=== PATIENT | female | born 1945 | race Caucasian/White ===

== ENCOUNTER 2016-10-10 15:49 | Inpatient (IN) | payer MEDICARE, OTHER ==
[2016-10-10] MEDS ORDERED: Sodium Chloride 0.9% 10 ML Syringe FLUSH PRN ×2 (16:39→19:31)
[2016-10-10] MEDS ORDERED: HYDROmorphone 0.5 MG/0.5 ML Syringe IVPUSH ONE (16:39)
--- NOTE | 2016-10-10 17:11 | EDM.PDOC ---
ED HPI GENERAL MEDICAL PROBLEM - General Chief Complaint: Abdominal Pain Stated Complaint: ABDOMINAL PAIN Time Seen by Provider: 10/10/16 16:26 Source of Information: Reports: Patient History Limitations: Reports: No Limitations - History of Present Illness INITIAL COMMENTS - FREE TEXT/NARRATIVE: Patient is a 71-year-old female who presents to the ED complaining of generalized abdominal pain. States she feels bloated. Onset was two days ago and has progressively worsened. Pain is currently a 10 out of 10 throughout her abdomen increased with palpation. She's mildly nauseated with no vomiting. She has been passing gas. Last bowel movement was this a.m. She has had 4-5 small bowel movements today described as being loose with no blood present. She's had to strain to have BM's. States yesterday stools were quite hard and she is fearful that she may be constipated. She has no pain with urination. States last Tuesday she was seen by Keyona hernandez PA-C at the clinic for not feeling well. Temperature was 100F. CT scan of the abdomen and pelvis was obtained along with some blood work. She has a scheduled appointment with GI specialist this coming Tuesday. She has a history of Crohn's Disease. 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 Abdomen Pain Score (Numeric/FACES): 10 - Related Data Allergies Allergy/AdvReac Type Severity Reaction Status Date / Time Penicillins Allergy Cannot Verified 10/05/16 15:46 Remember pistachio nut Allergy Cannot Verified 10/05/16 15:46 Remember Home Meds: Home Meds Aspirin 81 mg PO BEDTIME 08/15/15 [History] Calcium Carbonate [Calcium] 1,200 mg PO BID 08/15/15 [History] Cetirizine [ZyrTEC] 10 mg PO DAILY 08/15/15 [History] Cyanocobalamin (Vitamin B-12) [B-12] 1,000 mg PO DAILY 08/15/15 [History] Fenofibrate Nanocrystallized [Fenofibrate] 48 mg PO DAILY 08/15/15 [History] Ferrous Sulfate [Iron] 325 mg PO DAILY 08/15/15 [History] Fish Oil/[place]-3 Fatty Acids [Fish Oil 1,000 MG] 1,000 mg PO TID 08/15/15 [ History] Folic Acid 0 mg PO DAILY 08/15/15 [History] Furosemide 20 mg PO BID 08/15/15 [History] Potassium Chloride [Klor-Con 10] 10 meq PO TID 08/15/15 [History] Vedolizumab [Entyvio] 300 mg IV ASDIRECTED 08/15/15 [History] chlordiazePOXIDE [Librium] 5 mg PO TID 08/15/15 [History] cloNIDine [Catapres] 0.1 mg PO BID 08/15/15 [History] metFORMIN HCl [Metformin HCl] 1,000 mg PO QAM 08/15/15 [History] metFORMIN HCl [Metformin HCl] 500 mg PO PCDINNER 08/15/15 [History] Past Medical History HEENT History: Reports: Hard of Hearing Cardiovascular History: Reports: High Cholesterol, Hypertension Respiratory History: Reports: COPD Gastrointestinal History: Reports: Other (See Below) Other Gastrointestinal History: chrohns Genitourinary History: Reports: Other (See Below) 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: Musculoskeletal History: Reports: Osteoarthritis, Osteoporosis Psychiatric History: Reports: Anxiety, Depression Endocrine/Metabolic History: Reports: Diabetes, Type II Hematologic History: Reports: Anemia, B12 Deficiency, Iron Deficiency - Past Surgical History GI Surgical History: Reports: Appendectomy, Cholecystectomy Social & Family History - Family History Family Medical History: Noncontributory - Tobacco Use Smoking Status *Q: Current Every Day Smoker Years of Tobacco use: 50 Packs/Tins Daily: 0.4 - Caffeine Use Caffeine Use: Reports: Coffee, Soda, Tea - Recreational Drug Use Recreational Drug Use: No - Living Situation & Occupation Living situation: Reports: Occupation: Retired ED ROS GENERAL - Review of Systems Review Of Systems: See Below Constitutional: Reports: Decreased Appetite. Denies: Fever, Chills, Malaise Respiratory: Reports: No Symptoms Cardiovascular: Reports: No Symptoms GI/Abdominal: Reports: Abdominal Pain, Constipation, Nausea. Denies: Vomiting : Denies: Dysuria, Flank Pain, Frequency, Urgency Musculoskeletal: Reports: Back Pain ED EXAM, GI/ABD - Physical Exam Exam: See Below Exam Limited By: No Limitations General Appearance: Alert, WD/WN, No Apparent Distress Ears: Hearing Grossly Normal Nose: Normal Inspection Throat/Mouth: Normal Inspection, Normal Oropharynx, Normal Voice, No Airway Compromise Neck: Normal Inspection, Supple Respiratory/Chest: No Respiratory Distress, Lungs Clear, Normal Breath Sounds, No Accessory Muscle Use, Chest Non-Tender Cardiovascular: Normal Peripheral Pulses GI/Abdominal Exam: Soft, Distended, Tender (Generalized), Abnormal Bowel Sounds (Hyperactive) (Female) Exam: Deferred Rectal (Female) Exam: Deferred Back Exam: Normal Inspection Extremities: Normal Inspection, Normal Range of Motion, Non-Tender, No Pedal Edema, Normal Capillary Refill Neurological: Alert, Oriented, CN II-XII Intact, Normal Cognition, No Motor/ Sensory Deficits Psychiatric: Normal Affect, Normal Mood Skin Exam: Warm, Dry, Intact, Normal Color Course - Vital Signs Last Recorded V/S: Last Vital Signs Temp 97.2 F 10/10/16 16:08 Pulse 78 10/10/16 16:08 Resp 20 10/10/16 16:08 BP 139/54 L 10/10/16 16:08 Pulse Ox 97 10/10/16 16:08 - Orders/Labs/Meds Orders: Active Orders 24 hr Category Date Time Status Peripheral IV Care [RC] . DIRECTED Care 10/10/16 16:39 Active NPO Now [Nothing per Oral Now Diet] [DIET] Diet 10/10/16 Breakfast Active Abdomen 2V AP Flat Upright [CR] Stat Exams 10/10/16 16:39 Taken Abdomen Pelvis w Cont [CT] Stat Exams 10/10/16 18:13 Taken Sodium Chloride 0.9% [Saline Flush] Med 10/10/16 16:39 Active 10 ml FLUSH ASDIRECTED PRN Sodium Chloride 0.9% [Saline Flush] Med 10/10/16 19:31 Active 10 ml FLUSH ONETIME PRN Peripheral IV Insertion Adult [OM.PC] Stat Oth 10/10/16 16:39 Ordered Medication Orders Sodium Chloride (Saline Flush) 10 ml FLUSH ASDIRECTED PRN PRN Reason: Keep Vein Open Last Admin: 10/10/16 17:41 Dose: 10 ml Sodium Chloride (Saline Flush) 10 ml FLUSH ONETIME PRN PRN Reason: IV FLUSH Last Admin: 10/10/16 20:23 Dose: 10 ml Labs: Laboratory Tests 10/10/16 10/10/16 Range/Units 17:40 17:40 WBC 8.08 (3.98-10.04) K/mm3 RBC 4.54 (3.98-5.22) M/mm3 Hgb 11.8 (11.2-15.7) gm/L Hct 36.9 (34.1-44.9) % MCV 81.3 (79.4-94.8) fl MCH 26.0 (25.6-32.2) pg MCHC 32.0 L (32.2-35.5) g/dl RDW Std Deviation 45.7 (36.4-46.3) fL Plt Count 478 H (182-369) K/mm3 MPV 8.7 L (9.4-12.3) fl Neut % (Auto) 66.2 (34.0-71.1) % Lymph % (Auto) 22.5 (19.3-51.7) % [place] % (Auto) 10.3 (4.7-12.5) % Eos % (Auto) 0.7 (0.7-5.8) Baso % (Auto) 0.2 (0.1-1.2) % Neut # (Auto) 5.34 (1.56-6.13) K/mm3 Lymph # (Auto) 1.82 (1.18-3.74) K/mm3 [place] # (Auto) 0.83 H (0.24-0.36) K/mm3 Eos # (Auto) 0.06 (0.04-0.36) K/mm3 Baso # (Auto) 0.02 (0.01-0.08) K/mm3 Sodium 134 L (136-145) mEq/L Potassium 4.2 (3.5-5.1) mEq/L Chloride 97 L (98-107) mEq/L Carbon Dioxide 29 (21-32) mEq/L Anion Gap 12.2 (5-15) BUN 12 (7-18) mg/dL Creatinine 0.8 (0.55-1.02) mg/dL Est Cr Clr Drug Dosing 44.99 mL/min Estimated GFR (MDRD) > 60 (>60) mL/min BUN/Creatinine Ratio 15.0 (14-18) Glucose 105 (83-115) mg/dL Calcium 9.9 (8.5-10.1) mg/dL Total Bilirubin 0.3 (0.2-1.0) mg/dL AST 61 H (15-37) U/L ALT 57 (14-59) U/L Alkaline Phosphatase 111 (46-116) U/L C-Reactive Protein 6.9 H* (<1.0) mg/dL Total Protein 7.8 (6.4-8.2) g/dl Albumin 2.8 L (3.4-5.0) g/dl Globulin 5.0 gm/dL Albumin/Globulin Ratio 0.6 L (1-2) Lipase 63 L (73-393) U/L Meds: Medications Generic Name Dose Route Start Last Admin Trade Name [place] PRN Reason Stop Dose Admin Sodium Chloride 10 ml 10/10/16 16:39 10/10/16 17:41 Saline Flush FLUSH 10 ml ASDIRECTED PRN Administration Keep Vein Open Sodium Chloride 10 ml 10/10/16 19:31 10/10/16 20:23 Saline Flush FLUSH 10 ml ONETIME PRN Administration IV FLUSH Discontinued Medications Generic Name Dose Route Start Last Admin Trade Name Nakia PRN Reason Stop Dose Admin Al Hydroxide/Mg Hydroxide 30 ml 10/10/16 18:31 10/10/16 18:38 Mag-Al Plus PO 10/10/16 18:32 30 ml ONETIME ONE Administration Diatrizoate Meglum/Diatrizoate Sod 90 ml 10/10/16 19:31 10/10/16 20:24 Gastrografin 37% PO 10/10/16 19:32 90 ml ONETIME ONE Administration Hydromorphone HCl 0.25 mg 10/10/16 16:39 10/10/16 17:41 Dilaudid IVPUSH 10/10/16 16:40 0.25 mg ONETIME ONE Administration Iopamidol 100 ml 10/10/16 19:31 10/10/16 20:23 Isovue-300 (61%) IVPUSH 10/10/16 19:32 100 ml ONETIME ONE Administration Lidocaine HCl Confirm 10/10/16 21:12 10/10/16 21:25 Xylocaine 2% Jelly Administered 10/10/16 21:13 Not Given Dose 10 ml .ROUTE .STK-MED ONE Lidocaine HCl 10 ml 10/10/16 21:24 10/10/16 21:24 Xylocaine 2% Jelly MUCMEM 10/10/16 21:25 10 ml ONETIME ONE Administration Ondansetron HCl 4 mg 10/10/16 19:59 10/10/16 20:04 Zofran IVPUSH 10/10/16 20:00 4 mg ONETIME ONE Administration - Re-Assessments/Exams Free Text/Narrative Re-Assessment/Exam: Peripheral IV will be established. Ordered Dilaudid 0.25 mg IVP for pain. Initial labs and studies include CBC, chem 14, CRP, lipase, abdomen two-view flat and upright. Reviewed previous labs and CT of the abdomen and pelvis obtained a few days ago. White blood cell count 10.08, hemoglobin 11.3, platelet count 459, no neutrophilia present, sodium 138, potassium 3.5, creatinine 0.7, CRP was elevated at 9.9, lipase 104. UA was obtained October 05, 2016 with trace blood, leukocyte Estrace 2+, urine rbc 's 10-20, urine wbc's 10-20. C. difficile was negative. Stool culture and wbc's did not reveal any concerning findings. Urine culture was suggestive of mixed benjamin. CT was negative for any acute findings. 10/10/16 18:14 x-ray of the abdomen revealed multiple fluid levels and dilatation of colon, small bowel. Ordered CT the abdomen and pelvis with oral and IV contrast. Patient placed on nothing by mouth status. Labs reviewed: White blood cell count 8.08, hemoglobin is 11.8, platelets 478, no neutrophilia, sodium 134, creatinine 0.8, CRP 6.9, lipase 63. CT abdomen and pelvis impression: Small bowel obstruction secondary to terminal ileal stricture or strictures which appear to be secondary to chronic inflammatory disease. Right-sided nephrolithiasis. Verbal order for NG tube insertion has been placed. 10/10/16 21:12 Discussed patient with she agreed to admit to inpatient status. Dr. Felipe was present when speaking with family in relation to admission to [facility] or transfer to [facility]. She requests to be admitted to [facility]. Departure - Departure Time of Disposition: 21:17 Disposition: Admitted As Inpatient 64 Condition: Fair Clinical Impression: SBO (small bowel obstruction) Abdominal pain Qualifiers: Abdominal location: generalized Qualified Code(s): R10.84 - Generalized abdominal pain - Discharge Information Referrals: Keyona Hernandez PA [Primary Care Provider] - Forms: ED Department Discharge - My Orders Last 24 Hours: My Active Orders 10/10/16 16:39 Peripheral IV Care [RC] . DIRECTED Abdomen 2V AP Flat Upright [CR] Stat Sodium Chloride 0.9% [Saline Flush] 10 ml FLUSH ASDIRECTED PRN Peripheral IV Insertion Adult [OM.PC] Stat 10/10/16 18:13 Abdomen Pelvis w Cont [CT] Stat 10/10/16 19:31 Sodium Chloride 0.9% [Saline Flush] 10 ml FLUSH ONETIME PRN 10/10/16 Breakfast NPO Now [Nothing per Oral Now Diet] [DIET] - Assessment/Plan Last 24 Hours: My Active Orders 10/10/16 16:39 Peripheral IV Care [RC] . DIRECTED Abdomen 2V AP Flat Upright [CR] Stat Sodium Chloride 0.9% [Saline Flush] 10 ml FLUSH ASDIRECTED PRN Peripheral IV Insertion Adult [OM.PC] Stat 10/10/16 18:13 Abdomen Pelvis w Cont [CT] Stat 10/10/16 19:31 Sodium Chloride 0.9% [Saline Flush] 10 ml FLUSH ONETIME PRN 10/10/16 Breakfast NPO Now [Nothing per Oral Now Diet] [DIET]
[2016-10-10] MEDS ORDERED: Aluminum Hydroxide/Magnesium Hydroxide/Simethicone Susp 30 ML Cup PO ONE (18:31)
[2016-10-10] MEDS ORDERED: Iopamidol 612 MG/ML 100 ML Bottle IVPUSH ONE (19:31)
[2016-10-10] MEDS ORDERED: Diatrizoate Meglumine/Diatrizoate Sodium 37% 120 ML Bottle PO ONE (19:31)
[2016-10-10] MEDS ORDERED: Ondansetron 4 MG/2 ML SDV IVPUSH ONE (19:59)
[2016-10-10] MEDS ORDERED: Lidocaine 2% Jelly 10 ML Urojet ONE (21:12)
[2016-10-10] MEDS ORDERED: Lidocaine 2% Jelly 10 ML Urojet MUCMEM ONE (21:24)
[2016-10-10] MEDS ORDERED: LORazepam 2 MG/ML MDV IVPUSH PRN (23:02)
[2016-10-10] MEDS: Pantoprazole 40 MG Vial IVPUSH SCH (23:26)
[2016-10-10] MEDS: Sodium Chloride 0.45% 1,000 ML IV SCH (23:27)
[2016-10-10] MEDS: Enoxaparin 30 MG/0.3 ML Syringe SUBCUT SCH (23:36)
[2016-10-11] MEDS ORDERED: Pneumococcal Polyvalent-23 Vaccine 0.5 ML SDV SUBCUT ONE (00:17)
[2016-10-11] MEDS: Pantoprazole 40 MG Vial IVPUSH SCH ×2 (07:24→17:28)
[2016-10-11] MEDS: Sodium Chloride 0.45% 1,000 ML IV SCH (07:47)
[2016-10-11] MEDS: Enoxaparin 30 MG/0.3 ML Syringe SUBCUT SCH (08:29)
--- NOTE | 2016-10-11 09:39 | PCM.HP ---
H&P History of Present Illness - General Date of Service: 10/10/16 Admit Problem/Dx: Admission Diagnosis/Problem Admission Diagnosis/Problem Small bowel obstruction Source of Information: Patient, Family, Provider History Limitations: Reports: No Limitations - History of Present Illness Initial Comments - Free Text/Narative: 71 year old female with a PMH of Crohn's disease presents with abdominal pain associated with minimal passage of stool. There has been no change in habits. She reports a decreased appetite, generalized weakness and malaise. A CT of abdomen and pelvis documents an SBO. A NGT will be placed in the ED. The admission will be to [place] telemetry; NGT placed to suction will be ordered as well as a general surgery consult. Onset of Symptoms: Reports: Gradual Symptom Onset Date: 10/08/16 Duration of Symptoms: Reports: Day(s):, Getting Worse Location: Reports: Abdomen, Generalized Quality: Reports: Same as Previous Episode Severity: Moderate Improves with: Reports: Medication Worsens with: Reports: None Associated Symptoms: Reports: Malaise, Nausea/Vomiting, Other (flatus) Abdomen Pain Score (Numeric/FACES): 10 - Related Data Allergies/Adverse Reactions: Allergies Allergy/AdvReac Type Severity Reaction Status Date / Time Penicillins Allergy Cannot Verified 10/05/16 15:46 Remember pistachio nut Allergy Cannot Verified 10/05/16 15:46 Remember Home Medications: Home Meds Calcium Carbonate [Calcium] 1,200 mg PO BID 08/15/15 [History] Cetirizine [ZyrTEC] 10 mg PO DAILY 08/15/15 [History] Cyanocobalamin (Vitamin B-12) [B-12] 1,000 mg PO DAILY 08/15/15 [History] Fenofibrate Nanocrystallized [Fenofibrate] 48 mg PO 1200 08/15/15 [History] Ferrous Sulfate [Iron] 325 mg PO DAILY 08/15/15 [History] Fish Oil/[place]ford-3 Fatty Acids [Fish Oil 1,000 MG] 1,000 mg PO TID 08/15/15 [ History] RX: Aspirin 81 mg PO BEDTIME 08/15/15 [History] RX: Folic Acid 1 tab PO 1200 08/15/15 [History] RX: Furosemide 20 mg PO BID 08/15/15 [History] RX: Potassium Chloride [Klor-Con 10] 10 meq PO TID 08/15/15 [History] RX: chlordiazePOXIDE [Librium] 5 mg PO TID 08/15/15 [History] RX: cloNIDine [Catapres] 0.1 mg PO BID 08/15/15 [History] Vedolizumab [Entyvio] 300 mg IV ASDIRECTED 08/15/15 [History] metFORMIN HCl [Metformin HCl] 1,000 mg PO QAM 08/15/15 [History] metFORMIN HCl [Metformin HCl] 500 mg PO PCDINNER 08/15/15 [History] Menthol [Biofreeze] 1 applic MISC BID PRN 10/11/16 [History] Past Medical History HEENT History: Reports: Hard of Hearing, Impaired Vision Cardiovascular History: Reports: Blood Clots/VTE/DVT, High Cholesterol, Hypertension Respiratory History: Reports: COPD Gastrointestinal History: Reports: Other (See Below) Other Gastrointestinal History: chrohns Genitourinary History: Reports: Renal Calculus 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: Musculoskeletal History: Reports: Osteoarthritis, Osteoporosis Other Neuro History: headaches Psychiatric History: Reports: Anxiety, Depression Endocrine/Metabolic History: Reports: Diabetes, Type II Hematologic History: Reports: Anemia, B12 Deficiency, Iron Deficiency - Infectious Disease History Infectious Disease History: Reports: Chicken Pox, Measles - Past Surgical History GI Surgical History: Reports: Appendectomy, Cholecystectomy Social & Family History - Family History Family Medical History: Noncontributory - Tobacco Use Smoking Status *Q: Current Every Day Smoker Years of Tobacco use: 50 Packs/Tins Daily: 0.5 Used Tobacco, but Quit: No Second Hand Smoke Exposure: No - Caffeine Use Caffeine Use: Reports: Soda Other Caffeine Use: 1-2 8oz bottle - Recreational Drug Use Recreational Drug Use: No - Living Situation & Occupation Living situation: Reports: Occupation: Retired H&P Review of Systems - Review of Systems: Review Of Systems: See Below General: Reports: Malaise, Weakness, Decreased Appetite HEENT: Reports: No Symptoms Pulmonary: Reports: No Symptoms Cardiovascular: Reports: Lightheadedness Gastrointestinal: Reports: Abdominal Pain, Constipation Genitourinary: Reports: No Symptoms Musculoskeletal: Reports: No Symptoms Skin: Reports: No Symptoms Psychiatric: Reports: No Symptoms, Depression, Anxiety Neurological: Reports: Dizziness Hematologic/Lymphatic: Reports: Anemia Immunologic: Reports: No Symptoms Exam - Exam Exam: See Below - Vital Signs Vital Signs: Last Vital Signs Temp 37.2 C 10/11/16 08:56 Pulse 89 10/11/16 08:56 Resp 12 10/11/16 08:56 BP 140/65 10/11/16 08:56 Pulse Ox 91 L 10/11/16 08:56 Weight: 65 kg - Exam Quality Assessment: DVT Prophylaxis General: Alert, Oriented, Cooperative HEENT: Conjunctiva Clear, Nares Patent, Normal Nasal Septum, Pupils Equal, Pupils Reactive Lungs: Normal Respiratory Effort Cardiovascular: Regular Rate, Regular Rhythm GI/Abdominal Exam: Soft, No Organomegaly, Distended, Tender, Abnormal Bowel Sounds (Female) Exam: Deferred Rectal (Female) Exam: Deferred Back Exam: Normal Inspection Extremities: Normal Inspection, Non-Tender, No Pedal Edema Skin: Warm Neurological: Cranial Nerves Intact Neuro Extensive - Mental Status: Alert, Oriented x3, Normal Mood/Affect, Normal Cognition, Memory Intact Neuro Extensive - Motor, Sensory, Reflexes: CN II-XII Intact Psychiatric: Alert, Normal Affect, Normal Mood - Patient Data Lab Results Last 24 hrs: Laboratory Results - last 24 hr 10/11/16 10/11/16 Range/Units 06:05 06:05 WBC 6.96 (3.98-10.04) K/mm3 RBC 4.61 (3.98-5.22) M/mm3 Hgb 11.8 (11.2-15.7) gm/L Hct 37.5 (34.1-44.9) % MCV 81.3 (79.4-94.8) fl MCH 25.6 (25.6-32.2) pg MCHC 31.5 L (32.2-35.5) g/dl RDW Std Deviation 45.8 (36.4-46.3) fL Plt Count 493 H (182-369) K/mm3 MPV 8.8 L (9.4-12.3) fl Neut % (Auto) 63.3 (34.0-71.1) % Lymph % (Auto) 21.7 (19.3-51.7) % [place] % (Auto) 13.4 H (4.7-12.5) % Eos % (Auto) 1.1 (0.7-5.8) Baso % (Auto) 0.4 (0.1-1.2) % Neut # (Auto) 4.40 (1.56-6.13) K/mm3 Lymph # (Auto) 1.51 (1.18-3.74) K/mm3 [place] # (Auto) 0.93 H (0.24-0.36) K/mm3 Eos # (Auto) 0.08 (0.04-0.36) K/mm3 Baso # (Auto) 0.03 (0.01-0.08) K/mm3 Sodium 136 (136-145) mEq/L Potassium 3.7 (3.5-5.1) mEq/L Chloride 99 (98-107) mEq/L Carbon Dioxide 31 (21-32) mEq/L Anion Gap 9.7 (5-15) BUN 10 (7-18) mg/dL Creatinine 0.7 (0.55-1.02) mg/dL Est Cr Clr Drug Dosing 51.41 mL/min Estimated GFR (MDRD) > 60 (>60) mL/min BUN/Creatinine Ratio 14.3 (14-18) Glucose 129 H (83-115) mg/dL Calcium 9.2 (8.5-10.1) mg/dL Magnesium 1.6 L (1.8-2.4) mg/dl Result Diagrams: 10/11/16 06:05 10/11/16 06:05 *Q Meaningful Use (ADM) - VTE *Q VTE Criteria *Q: - Stroke *Q Stroke Criteria *Q: - AMI *Q AMI Criteria *Q: - Problem List (1) Crohns disease of small intestine SNOMED Code(s): 66479974 ICD Code: K50.00 - CROHN'S DISEASE OF SMALL INTESTINE WITHOUT COMPLICATIONS Status: Acute Current Visit: Yes (2) Abdominal pain SNOMED Code(s): 29139825 ICD Code: R10.9 - UNSPECIFIED ABDOMINAL PAIN Status: Acute Current Visit : Yes Qualifiers: Abdominal location: generalized Qualified Code(s): R10.84 - Generalized abdominal pain (3) SBO (small bowel obstruction) SNOMED Code(s): 107413725 ICD Code: K56.69 - OTHER INTESTINAL OBSTRUCTION Status: Acute Current Visit: Yes Problem List Initiated/Reviewed/Updated: Yes Orders Last 24hrs: Active Orders 24 hr Category Date Time Status Admission Status [Patient Status] [ADT] Routine ADT 10/10/16 21:55 Active Antiembolic Devices [RC] DAILY Care 10/11/16 00:50 Active Bedrest Bathroom Privileges [RC] ASDIRECTED Care 10/11/16 07:58 Active Gastrointestinal Tube Mgmt [RC] 04,10,16,22 Care 10/10/16 23:02 Active Oxygen Therapy [RC] ASDIRECTED Care 10/11/16 05:41 Active Vaccines to be Administered [RC] .discharge Care 10/10/16 22:44 Active Consult to Software Applications Developer [CONS] Routine Cons 10/10/16 23:02 Active OT Evaluation and Treatment [CONS] Routine Cons 10/10/16 23:02 Active PT Evaluation and Treatment [CONS] Routine Cons 10/10/16 23:02 Active Diphth,Pertuss(Acell),Tet Vac [Adacel] Med 10/12/16 09:00 Once 0.5 ml IM .ONCE ONE Enoxaparin [Lovenox] Med 10/10/16 23:15 Active 30 mg SUBCUT DAILY HYDROmorphone [Dilaudid] Med 10/10/16 23:02 Active 0.5 mg IVPUSH Q6H PRN LORazepam [Ativan] Med 10/10/16 23:02 Active 0.5 mg IVPUSH Q8H PRN Pantoprazole [ProTONIX IV] Med 10/10/16 23:05 Active 40 mg IVPUSH BID@0600,1800 Sodium Chloride 0.45% 1,000 ml Med 10/10/16 23:15 Active IV ASDIRECTED Antiembolic Hose [OM.PC] Routine Oth 10/11/16 00:50 Ordered Resuscitation Status Routine Resus Stat 10/11/16 00:56 Ordered Medication Orders Diphtheria/Tetanus/Acell Pertussis (Adacel) 0.5 ml IM .ONCE ONE Stop: 10/12/16 09:01 Enoxaparin Sodium (Lovenox) 30 mg SUBCUT DAILY HIRAL Last Admin: 10/11/16 08:29 Dose: 30 mg Admin: 10/10/16 23:36 Dose: 30 mg Hydromorphone HCl (Dilaudid) 0.5 mg IVPUSH Q6H PRN PRN Reason: pain Sodium Chloride (Sodium Chloride 0.45%) 1,000 mls @ 125 mls/hr IV ASDIRECTED [facility] Last Admin: 10/11/16 07:47 Dose: 125 mls/hr Infusion: 10/11/16 07:27 Dose: 125 mls/hr Admin: 10/10/16 23:27 Dose: 125 mls/hr Lorazepam (Ativan) 0.5 mg IVPUSH Q8H PRN PRN Reason: Anxiety Pantoprazole Sodium (Protonix Iv) 40 mg IVPUSH BID@0600,1800 [facility] Last Admin: 10/11/16 07:24 Dose: 40 mg Admin: 10/10/16 23:26 Dose: 40 mg Assessment/Plan Comment:: Impression: Abdominal pain, SBO History of Crohn's disease. Chronic Anemia Anxiety/depression HLD HTN DM type II Plan: NGT to low continuous suction IVF Replace electrolytes Pain meds General Surgery Consult DVT/GI prophylaxis
--- NOTE | 2016-10-11 10:28 | CT ---
CT abdomen and pelvis Technique: Multiple axial sections were obtained from above the dome of the diaphragm inferiorly to the pubic symphysis. Intravenous and oral contrast was utilized. Delayed images were also obtained through the pelvis. Comparison: Previous CT exam of 10/05/16. Findings: Numerous dilated small bowel loops are seen. These appear significantly worsened from prior CT exam. There are several areas of focal stricture being seen within distal ileum. Decompressed terminal ileum is seen. Small amount of fat seen within the wall of the terminal ileum compatible with chronic inflammatory type change. Findings raise the possibility of Crohn's disease. Small amount of fluid is scattered within the colon. Visualized lung bases show slight atelectasis. Liver shows no focal parenchymal abnormality. Spleen appears within normal limits. Adrenal glands show no nodule. Pancreas is within normal limits. Kidney show contrast enhancement. Several nonobstructing calculi are noted within the right kidney which appear stable from prior CT exam. Aorta shows atherosclerotic change without aneurysmal dilatation. No retroperitoneal adenopathy or mesenteric abnormalities are seen. No pelvic mass or adenopathy is seen. Delayed images show no contrast within the bladder. Bone window settings were reviewed which show mild scattered degenerative change throughout the spine. Impression: 1. Dilated small bowel loops with areas of stricture seen within the distal ileum. Terminal ileum has some fat and appears uncompressed. Fat within the terminal ileum is compatible with chronic inflammatory process. Findings are suspicious for Crohn's disease. Chronic ischemic change is also within the differential. 2. Stable appearing nonobstructing calculi within the right kidney. 3. Other incidental findings. Diagnostic code #3 I agree with preliminary report issued by [employer] ([facility] preliminary report dictated on 10/10/16, 10:03 PM Central Time)
--- NOTE | 2016-10-11 10:28 | CR ---
Abdomen: Supine and upright views of the abdomen were obtained. Comparison: Previous abdominal x-ray of 12/24/14. Multiple air-fluid levels are seen within dilated small bowel. Findings are compatible with a distal small bowel obstruction. Mild gas is seen within the colon. No free air is identified. Bony structures are unremarkable. Calcification seen within the pelvis compatible with arterial calcification and incidental phlebolith. Impression: 1. Findings compatible with distal small bowel obstruction. 2. Other incidental findings. Diagnostic code #3
[2016-10-11] MEDS ORDERED: Magnesium Sulfate/Water 2 GM in Premix Bag 1 BAG IV ONE (17:26)
[2016-10-11] MEDS ORDERED: Magnesium Sulfate/Water 0 ML ONE (17:45)
--- NOTE | 2016-10-11 18:25 | PCM.PN ---
- General Info Date of Service: 10/11/16 Functional Status: Reports: Pain Controlled, Tolerating Diet, Ambulating - Review of Systems General: Reports: No Symptoms HEENT: Reports: No Symptoms Pulmonary: Reports: No Symptoms Cardiovascular: Reports: No Symptoms Gastrointestinal: Reports: No Symptoms Genitourinary: Reports: No Symptoms Musculoskeletal: Reports: No Symptoms Skin: Reports: No Symptoms Neurological: Reports: No Symptoms Psychiatric: Reports: No Symptoms - Patient Data Vitals - Most Recent: Last Vital Signs Temp 36.6 C 10/11/16 15:20 Pulse 83 10/11/16 15:20 Resp 14 10/11/16 15:20 BP 141/61 H 10/11/16 15:20 Pulse Ox 97 10/11/16 15:20 Weight - Most Recent: 65 kg I&O - Last 24 Hours: Intake & Output 10/11/16 10/11/16 10/11/16 06:59 14:59 22:59 Intake Total 699 1550 Output Total 1800 1700 Balance -1101 -150 Lab Results Last 24 Hours: Laboratory Results - last 24 hr 10/11/16 10/11/16 10/11/16 Range/Units 06:05 06:05 17:28 WBC 6.96 (3.98-10.04) K/mm3 RBC 4.61 (3.98-5.22) M/mm3 Hgb 11.8 (11.2-15.7) gm/L Hct 37.5 (34.1-44.9) % MCV 81.3 (79.4-94.8) fl MCH 25.6 (25.6-32.2) pg MCHC 31.5 L (32.2-35.5) g/dl RDW Std Deviation 45.8 (36.4-46.3) fL Plt Count 493 H (182-369) K/mm3 MPV 8.8 L (9.4-12.3) fl Neut % (Auto) 63.3 (34.0-71.1) % Lymph % (Auto) 21.7 (19.3-51.7) % [place] % (Auto) 13.4 H (4.7-12.5) % Eos % (Auto) 1.1 (0.7-5.8) Baso % (Auto) 0.4 (0.1-1.2) % Neut # (Auto) 4.40 (1.56-6.13) K/mm3 Lymph # (Auto) 1.51 (1.18-3.74) K/mm3 [place] # (Auto) 0.93 H (0.24-0.36) K/mm3 Eos # (Auto) 0.08 (0.04-0.36) K/mm3 Baso # (Auto) 0.03 (0.01-0.08) K/mm3 Sodium 136 (136-145) mEq/L Potassium 3.7 (3.5-5.1) mEq/L Chloride 99 (98-107) mEq/L Carbon Dioxide 31 (21-32) mEq/L Anion Gap 9.7 (5-15) BUN 10 (7-18) mg/dL Creatinine 0.7 (0.55-1.02) mg/dL Est Cr Clr Drug Dosing 51.41 mL/min Estimated GFR (MDRD) > 60 (>60) mL/min BUN/Creatinine Ratio 14.3 (14-18) Glucose 129 H (83-115) mg/dL POC Glucose 108 (83-110) mg/dL Calcium 9.2 (8.5-10.1) mg/dL Magnesium 1.6 L (1.8-2.4) mg/dl Med Orders - Current: Current Medications Diphtheria/Tetanus/Acell Pertussis (Adacel) 0.5 ml IM .ONCE ONE Stop: 10/12/16 09:01 Enoxaparin Sodium (Lovenox) 30 mg SUBCUT DAILY [facility] Last Admin: 10/11/16 08:29 Dose: 30 mg Hydromorphone HCl (Dilaudid) 0.5 mg IVPUSH Q6H PRN PRN Reason: pain Sodium Chloride (Sodium Chloride 0.45%) 1,000 mls @ 125 mls/hr IV ASDIRECTED [facility] Last Admin: 10/11/16 07:47 Dose: 125 mls/hr Magnesium Sulfate 2 gm/ Premix 50 mls @ 25 mls/hr IV ONETIME ONE Stop: 10/11/16 19:25 Last Admin: 10/11/16 18:00 Dose: 25 mls/hr Dextrose/Sodium Chloride (Dextrose 5%-1/2 Ns) 1,000 mls @ 70 mls/hr IV ASDIRECTED [facility] Lorazepam (Ativan) 0.5 mg IVPUSH Q8H PRN PRN Reason: Anxiety Pantoprazole Sodium (Protonix Iv) 40 mg IVPUSH BID@0600,1800 [facility] Last Admin: 10/11/16 17:28 Dose: 40 mg Discontinued Medications Al Hydroxide/Mg Hydroxide (Mag-Al Plus) 30 ml PO ONETIME ONE Stop: 10/10/16 18:32 Last Admin: 10/10/16 18:38 Dose: 30 ml Diatrizoate Meglum/Diatrizoate Sod (Gastrografin 37%) 90 ml PO ONETIME ONE Stop: 10/10/16 19:32 Last Admin: 10/10/16 20:24 Dose: 90 ml Hydromorphone HCl (Dilaudid) 0.25 mg IVPUSH ONETIME ONE Stop: 10/10/16 16:40 Last Admin: 10/10/16 17:41 Dose: 0.25 mg Magnesium Sulfate (Magnesium Sulfate 2 Gm In Water 50 Ml) Confirm Administered Dose 50 mls @ as directed .ROUTE .STK-MED ONE Stop: 10/11/16 17:46 Iopamidol (Isovue-300 (61%)) 100 ml IVPUSH ONETIME ONE Stop: 10/10/16 19:32 Last Admin: 10/10/16 20:23 Dose: 100 ml Lidocaine HCl (Xylocaine 2% Jelly) Confirm Administered Dose 10 ml .ROUTE .STK- MED ONE Stop: 10/10/16 21:13 Last Admin: 10/10/16 21:25 Dose: Not Given Lidocaine HCl (Xylocaine 2% Jelly) 10 ml MUCMEM ONETIME ONE Stop: 10/10/16 21:25 Last Admin: 10/10/16 21:24 Dose: 10 ml Ondansetron HCl (Zofran) 4 mg IVPUSH ONETIME ONE Stop: 10/10/16 20:00 Last Admin: 10/10/16 20:04 Dose: 4 mg Pneumococcal Polyvalent Vaccine (Pneumovax 23) 0.5 ml SUBCUT .ONCE ONE Stop: 10/11/16 00:18 Sodium Chloride (Saline Flush) 10 ml FLUSH ASDIRECTED PRN PRN Reason: Keep Vein Open Last Admin: 10/10/16 17:41 Dose: 10 ml Sodium Chloride (Saline Flush) 10 ml FLUSH ONETIME PRN PRN Reason: IV FLUSH Last Admin: 10/10/16 20:23 Dose: 10 ml - Exam Quality Assessment: DVT Prophylaxis General: Alert, Oriented, Cooperative, No Acute Distress HEENT: Pupils Equal, Pupils Reactive, EOMI Neck: Supple, Trachea Midline, No JVD Lungs: Normal Respiratory Effort Cardiovascular: Regular Rate, Regular Rhythm GI/Abdominal Exam: Normal Bowel Sounds, Soft, Non-Tender, No Organomegaly, No Distention (Female) Exam: Deferred Back Exam: Normal Inspection Extremities: Normal Inspection, Normal Range of Motion, Non-Tender, No Pedal Edema, Normal Capillary Refill Skin: Warm Neurological: No New Focal Deficit, Normal Speech Psy/Mental Status: Alert, Normal Affect, Normal Mood - Problem List & Annotations (1) Crohns disease of small intestine SNOMED Code(s): 50487951 Code(s): K50.00 - CROHN'S DISEASE OF SMALL INTESTINE WITHOUT COMPLICATIONS Status: Acute Current Visit: Yes (2) Abdominal pain SNOMED Code(s): 84953434 Code(s): R10.9 - UNSPECIFIED ABDOMINAL PAIN Status: Acute Current Visit: Yes Qualifiers: Abdominal location: generalized Qualified Code(s): R10.84 - Generalized abdominal pain (3) SBO (small bowel obstruction) SNOMED Code(s): 629670312 Code(s): K56.69 - OTHER INTESTINAL OBSTRUCTION Status: Acute Current Visit: Yes - Problem List Review Problem List Initiated/Reviewed/Updated: Yes - My Orders Last 24 Hours: My Active Orders 10/10/16 22:44 Vaccines to be Administered [RC] .discharge 10/10/16 23:02 Gastrointestinal Tube Mgmt [RC] 04,10,16,22 Consult to Patient Access Specialist [CONS] Routine OT Evaluation and Treatment [CONS] Routine PT Evaluation and Treatment [CONS] Routine HYDROmorphone [Dilaudid] 0.5 mg IVPUSH Q6H PRN LORazepam [Ativan] 0.5 mg IVPUSH Q8H PRN 10/10/16 23:05 Pantoprazole [ProTONIX IV] 40 mg IVPUSH BID@0600,1800 10/10/16 23:15 Enoxaparin [Lovenox] 30 mg SUBCUT DAILY Sodium Chloride 0.45% 1,000 ml IV ASDIRECTED 10/11/16 00:50 Antiembolic Devices [RC] DAILY Antiembolic Hose [OM.PC] Routine 10/11/16 00:56 Resuscitation Status Routine 10/11/16 05:41 Oxygen Therapy [RC] ASDIRECTED 10/11/16 07:58 Bedrest Bathroom Privileges [RC] ASDIRECTED 10/11/16 17:07 CIWAA Assessment [RC] Q4H 10/11/16 17:26 Magnesium Sulfate/Water [Magnesium Sulfate 2 GM in Water 50 ML] 2 gm Premix Bag 1 bag IV ONETIME 10/11/16 17:31 POC Glucose [Blood Glucose Check, Bedside] [RC] 10/11/16 18:00 Dextrose 5%-0.45% NaCl [Dextrose 5%-1/2 NS] 1,000 ml IV ASDIRECTED 10/12/16 09:00 Diphth,Pertuss(Acell),Tet Vac [Adacel] 0.5 ml IM .ONCE ONE - Plan Plan:: Impression: Abdominal pain, SBO History of Crohn's disease. Chronic Anemia Anxiety/depression HLD HTN DM type II Plan: Query CIWA with librium dependence NGT to low continuous suction IVF, change fluid, reduce rate. Replace electrolytes Pain meds General Surgery Consult DVT/GI prophylaxis
[2016-10-11] MEDS: Dextrose 5%-0.45% NaCl 1,000 ML IV SCH (21:29)
[2016-10-12] MEDS: Pantoprazole 40 MG Vial IVPUSH SCH ×2 (06:48→17:24)
[2016-10-12] MEDS: HYDROmorphone 0.5 MG/0.5 ML Syringe IVPUSH PRN ×2 (07:34→21:54)
[2016-10-12] MEDS ORDERED: Diphtheria,Pertussis(Acell),Tetanus Vaccine 0.5 ML SDV IM ONE (09:00)
[2016-10-12] MEDS: Enoxaparin 30 MG/0.3 ML Syringe SUBCUT SCH (09:01)
[2016-10-12] MEDS ORDERED: Diatrizoate Meglumine/Diatrizoate Sodium 37% 120 ML Bottle PO ONE (12:21)
[2016-10-12] MEDS ORDERED: Sodium Chloride 0.9% 10 ML Syringe FLUSH PRN (12:21)
[2016-10-12] MEDS ORDERED: Iopamidol 612 MG/ML 100 ML Bottle IVPUSH ONE (12:21)
[2016-10-12] MEDS: Dextrose 5%-0.45% NaCl 1,000 ML IV SCH (12:45)
[2016-10-12] MEDS ORDERED: Enoxaparin 40 MG/0.4 ML Syringe SUBCUT SCH (13:29)
--- NOTE | 2016-10-12 14:23 | CT ---
CT abdomen and pelvis Technique: Multiple axial sections were obtained from above the dome of the diaphragm inferiorly through the pubic symphysis. Intravenous and oral contrast was utilized. Comparison: Previous CT exam of 10/10/16. Findings: Continuing dilated small bowel loops are seen. Fluid is seen within multiple small bowel loops as well as fluid within the right side of the colon. Visualized lung bases show nothing acute. Liver shows no focal parenchymal abnormality. Spleen appears within normal limits. Adrenal glands show no nodule. Nonobstructing calculi are seen within the right kidney which are stable. Aorta shows atherosclerotic change which continues into the iliac vessels without aneurysm. Pancreas shows no discrete abnormality. No retroperitoneal adenopathy or mesenteric abnormalities are seen. No pelvic mass or adenopathy is seen. There is some enhancement being seen within several small bowel loops which is felt compatible with hyperemia likely due to vascular compromise. Visualized mesenteric vessels are opacified. No free fluid or inflammatory type change is appreciated. No free air is seen. Bone window settings show scattered degenerative change within the spine. Impression: 1. Diffuse small bowel dilatation which contains fluid which has certainly not improved from previous exam and is compatible with continuing small bowel obstruction. Several loops of small bowel show slight increased enhancement as described above. 2. Stable nonobstructing stones noted within the right kidney. 3. Other incidental findings as noted above. Diagnostic code #3
--- NOTE | 2016-10-12 14:40 | PCM.PN ---
- General Info Date of Service: 10/12/16 Subjective Update: NGT pulled out, indeterminate; CT of abdomen/pelvis is unchanged. Patient voices no complaints. Functional Status: Reports: Pain Controlled, Ambulating, Urinating - Review of Systems General: Reports: No Symptoms HEENT: Reports: No Symptoms Pulmonary: Reports: No Symptoms Cardiovascular: Reports: No Symptoms Gastrointestinal: Reports: No Symptoms Genitourinary: Reports: No Symptoms Musculoskeletal: Reports: No Symptoms Skin: Reports: No Symptoms Neurological: Reports: No Symptoms Psychiatric: Reports: No Symptoms - Patient Data Vitals - Most Recent: Last Vital Signs Temp 36.7 C 10/12/16 12:03 Pulse 85 10/12/16 12:03 Resp 14 10/12/16 12:03 BP 107/89 10/12/16 12:03 Pulse Ox 92 L 10/12/16 12:56 Weight - Most Recent: 64.728 kg I&O - Last 24 Hours: Intake & Output 10/11/16 10/12/16 10/12/16 22:59 06:59 14:59 Intake Total 1550 1200 Output Total 1700 5426 Balance -150 -4226 Lab Results Last 24 Hours: Laboratory Results - last 24 hr 10/11/16 10/12/16 Range/Units 17:28 06:52 POC Glucose 108 139 H (83-110) mg/dL Med Orders - Current: Current Medications Enoxaparin Sodium (Lovenox) 40 mg SUBCUT DAILY [facility] Hydromorphone HCl (Dilaudid) 0.5 mg IVPUSH Q6H PRN PRN Reason: pain Last Admin: 10/12/16 07:34 Dose: 0.5 mg Dextrose/Sodium Chloride (Dextrose 5%-1/2 Ns) 1,000 mls @ 70 mls/hr IV ASDIRECTED [facility] Last Admin: 10/12/16 12:45 Dose: 70 mls/hr Lorazepam (Ativan) 0.5 mg IVPUSH Q8H PRN PRN Reason: Anxiety Pantoprazole Sodium (Protonix Iv) 40 mg IVPUSH BID@0600,1800 [facility] Last Admin: 10/12/16 06:48 Dose: 40 mg Sodium Chloride (Saline Flush) 10 ml FLUSH ONETIME PRN PRN Reason: IV FLUSH Stop: 10/12/16 16:00 Last Admin: 10/12/16 13:24 Dose: 10 ml Discontinued Medications Al Hydroxide/Mg Hydroxide (Mag-Al Plus) 30 ml PO ONETIME ONE Stop: 10/10/16 18:32 Last Admin: 10/10/16 18:38 Dose: 30 ml Diatrizoate Meglum/Diatrizoate Sod (Gastrografin 37%) 90 ml PO ONETIME ONE Stop: 10/10/16 19:32 Last Admin: 10/10/16 20:24 Dose: 90 ml Diatrizoate Meglum/Diatrizoate Sod (Gastrografin 37%) 90 ml PO ONETIME ONE Stop: 10/12/16 12:22 Last Admin: 10/12/16 13:24 Dose: 90 ml Diphtheria/Tetanus/Acell Pertussis (Adacel) 0.5 ml IM .ONCE ONE Stop: 10/12/16 09:01 Enoxaparin Sodium (Lovenox) 30 mg SUBCUT DAILY [facility] Last Admin: 10/12/16 09:01 Dose: 30 mg Hydromorphone HCl (Dilaudid) 0.25 mg IVPUSH ONETIME ONE Stop: 10/10/16 16:40 Last Admin: 10/10/16 17:41 Dose: 0.25 mg Sodium Chloride (Sodium Chloride 0.45%) 1,000 mls @ 125 mls/hr IV ASDIRECTED [facility] Last Admin: 10/11/16 07:47 Dose: 125 mls/hr Magnesium Sulfate 2 gm/ Premix 50 mls @ 25 mls/hr IV ONETIME ONE Stop: 10/11/16 19:25 Last Admin: 10/11/16 18:00 Dose: 25 mls/hr Magnesium Sulfate (Magnesium Sulfate 2 Gm In Water 50 Ml) Confirm Administered Dose 50 mls @ as directed .ROUTE .STK-MED ONE Stop: 10/11/16 17:46 Last Admin: 10/11/16 18:31 Dose: Not Given Iopamidol (Isovue-300 (61%)) 100 ml IVPUSH ONETIME ONE Stop: 10/10/16 19:32 Last Admin: 10/10/16 20:23 Dose: 100 ml Iopamidol (Isovue-300 (61%)) 100 ml IVPUSH ONETIME ONE Stop: 10/12/16 12:22 Last Admin: 10/12/16 13:24 Dose: 100 ml Lidocaine HCl (Xylocaine 2% Jelly) Confirm Administered Dose 10 ml .ROUTE .STK- MED ONE Stop: 10/10/16 21:13 Last Admin: 10/10/16 21:25 Dose: Not Given Lidocaine HCl (Xylocaine 2% Jelly) 10 ml MUCMEM ONETIME ONE Stop: 10/10/16 21:25 Last Admin: 10/10/16 21:24 Dose: 10 ml Ondansetron HCl (Zofran) 4 mg IVPUSH ONETIME ONE Stop: 10/10/16 20:00 Last Admin: 10/10/16 20:04 Dose: 4 mg Pneumococcal Polyvalent Vaccine (Pneumovax 23) 0.5 ml SUBCUT .ONCE ONE Stop: 10/11/16 00:18 Sodium Chloride (Saline Flush) 10 ml FLUSH ASDIRECTED PRN PRN Reason: Keep Vein Open Last Admin: 10/10/16 17:41 Dose: 10 ml Sodium Chloride (Saline Flush) 10 ml FLUSH ONETIME PRN PRN Reason: IV FLUSH Last Admin: 10/10/16 20:23 Dose: 10 ml - Exam Quality Assessment: DVT Prophylaxis General: Alert, Oriented, Cooperative, No Acute Distress HEENT: Pupils Equal, Pupils Reactive, EOMI Neck: Supple, Trachea Midline, No JVD Lungs: Normal Respiratory Effort Cardiovascular: Regular Rate, Regular Rhythm GI/Abdominal Exam: Normal Bowel Sounds, Soft, Non-Tender, No Organomegaly, No Distention (Female) Exam: Deferred Back Exam: Normal Inspection Extremities: Normal Inspection, Normal Range of Motion, Non-Tender, Normal Capillary Refill Skin: Warm Neurological: No New Focal Deficit, Normal Speech Psy/Mental Status: Alert, Normal Affect, Normal Mood - Problem List & Annotations (1) Crohns disease of small intestine SNOMED Code(s): 37987397 Code(s): K50.00 - CROHN'S DISEASE OF SMALL INTESTINE WITHOUT COMPLICATIONS Status: Acute Current Visit: Yes (2) Abdominal pain SNOMED Code(s): 75523038 Code(s): R10.9 - UNSPECIFIED ABDOMINAL PAIN Status: Acute Current Visit: Yes Qualifiers: Abdominal location: generalized Qualified Code(s): R10.84 - Generalized abdominal pain (3) SBO (small bowel obstruction) SNOMED Code(s): 393867301 Code(s): K56.69 - OTHER INTESTINAL OBSTRUCTION Status: Acute Current Visit: Yes - Problem List Review Problem List Initiated/Reviewed/Updated: Yes - My Orders Last 24 Hours: My Active Orders 10/11/16 17:31 POC Glucose [Blood Glucose Check, Bedside] [] 10/11/16 18:00 Dextrose 5%-0.45% NaCl [Dextrose 5%-1/2 NS] 1,000 ml IV ASDIRECTED 10/12/16 12:21 Sodium Chloride 0.9% [Saline Flush] 10 ml FLUSH ONETIME PRN 10/12/16 13:29 Enoxaparin [Lovenox] 40 mg SUBCUT DAILY - Plan Plan:: Impression: Abdominal pain, SBO History of Crohn's disease. CT of abdomen/pelvis, unchanged. Chronic Anemia Anxiety/depression HLD HTN DM type II Plan: Resume NGT to low continuous suction IVF, change fluid, reduce rate. Replace electrolytes Pain meds General Surgery Consult-->ordered. DVT/GI prophylaxis
--- NOTE | 2016-10-12 15:57 | CR ---
Chest: Portable view of the chest was obtained. Comparison: Previous chest x-ray of 08/15/15. Heart size and mediastinum are within normal limits for portable technique. Lungs are clear. Overlying monitor leads are seen. Nasogastric tube is seen. Tip lies within the stomach. Impression: 1. Nasogastric tube within the stomach. 2. Nothing acute is seen on frontal chest x-ray. Diagnostic code #2
[2016-10-12] MEDS ORDERED: 50% Dextrose in Water 50 ML Syringe IVPUSH PRN (16:06)
[2016-10-12] MEDS ORDERED: Magnesium Sulfate/Water 2 GM in Premix Bag 1 BAG IV ONE (18:18)
[2016-10-13] MEDS ORDERED: Ondansetron 4 MG/2 ML SDV IVPUSH ONE (01:51)
[2016-10-13] MEDS: Dextrose 5%-0.45% NaCl 1,000 ML IV SCH (05:30)
[2016-10-13] MEDS: Pantoprazole 40 MG Vial IVPUSH SCH (06:02)
--- NOTE | 2016-10-13 13:39 | PCM.CONSN ---
- General Info Date of Service: 10/13/16 - Patient Data Vitals - Most Recent: Last Vital Signs Temp 98.6 F 10/13/16 10:50 Pulse 83 10/13/16 10:50 Resp 18 10/13/16 10:50 BP 139/59 L 10/13/16 10:50 Pulse Ox 95 10/13/16 10:50 Weight - Most Recent: 65.045 kg I&O - Last 24 Hours: Intake & Output 10/12/16 10/13/16 10/13/16 23:59 07:59 15:59 Intake Total 997 605 Output Total 900 Balance 97 605 Lab Results Last 24 Hours: Laboratory Results - last 24 hr 10/12/16 10/12/16 10/13/16 Range/Units 17:36 20:51 05:00 WBC 7.08 (3.98-10.04) K/mm3 RBC 4.53 (3.98-5.22) M/mm3 Hgb 11.8 (11.2-15.7) gm/L Hct 37.5 (34.1-44.9) % MCV 82.8 (79.4-94.8) fl MCH 26.0 (25.6-32.2) pg MCHC 31.5 L (32.2-35.5) g/dl RDW Std Deviation 46.3 (36.4-46.3) fL Plt Count 540 H (182-369) K/mm3 MPV 8.5 L (9.4-12.3) fl Neut % (Auto) 52.6 (34.0-71.1) % Lymph % (Auto) 29.0 (19.3-51.7) % [place] % (Auto) 16.7 H (4.7-12.5) % Eos % (Auto) 1.4 (0.7-5.8) Baso % (Auto) 0.3 (0.1-1.2) % Neut # (Auto) 3.73 (1.56-6.13) K/mm3 Lymph # (Auto) 2.05 (1.18-3.74) K/mm3 [place] # (Auto) 1.18 H (0.24-0.36) K/mm3 Eos # (Auto) 0.10 (0.04-0.36) K/mm3 Baso # (Auto) 0.02 (0.01-0.08) K/mm3 Manual Slide Review Normal smear Sodium (136-145) mEq/L Potassium (3.5-5.1) mEq/L Chloride (98-107) mEq/L Carbon Dioxide (21-32) mEq/L Anion Gap (5-15) BUN (7-18) mg/dL Creatinine (0.55-1.02) mg/dL Est Cr Clr Drug Dosing mL/min Estimated GFR (MDRD) (>60) mL/min BUN/Creatinine Ratio (14-18) Glucose (83-115) mg/dL POC Glucose 122 H 125 H (83-110) mg/dL Lactic Acid (0.4-2.0) mmol/L Calcium (8.5-10.1) mg/dL Magnesium (1.8-2.4) mg/dl Total Bilirubin (0.2-1.0) mg/dL AST (15-37) U/L ALT (14-59) U/L Alkaline Phosphatase (46-116) U/L C-Reactive Protein (<1.0) mg/dL Total Protein (6.4-8.2) g/dl Albumin (3.4-5.0) g/dl Globulin gm/dL Albumin/Globulin Ratio (1-2) 10/13/16 10/13/16 10/13/16 Range/Units 06:12 06:27 06:27 WBC (3.98-10.04) K/mm3 RBC (3.98-5.22) M/mm3 Hgb (11.2-15.7) gm/L Hct (34.1-44.9) % MCV (79.4-94.8) fl MCH (25.6-32.2) pg MCHC (32.2-35.5) g/dl RDW Std Deviation (36.4-46.3) fL Plt Count (182-369) K/mm3 MPV (9.4-12.3) fl Neut % (Auto) (34.0-71.1) % Lymph % (Auto) (19.3-51.7) % [place] % (Auto) (4.7-12.5) % Eos % (Auto) (0.7-5.8) Baso % (Auto) (0.1-1.2) % Neut # (Auto) (1.56-6.13) K/mm3 Lymph # (Auto) (1.18-3.74) K/mm3 [place] # (Auto) (0.24-0.36) K/mm3 Eos # (Auto) (0.04-0.36) K/mm3 Baso # (Auto) (0.01-0.08) K/mm3 Manual Slide Review Sodium 138 (136-145) mEq/L Potassium 3.1 L (3.5-5.1) mEq/L Chloride 103 (98-107) mEq/L Carbon Dioxide 29 (21-32) mEq/L Anion Gap 9.1 (5-15) BUN 4 L (7-18) mg/dL Creatinine 0.5 L (0.55-1.02) mg/dL Est Cr Clr Drug Dosing 71.98 mL/min Estimated GFR (MDRD) > 60 (>60) mL/min BUN/Creatinine Ratio 8.0 L (14-18) Glucose 128 H (83-115) mg/dL POC Glucose 133 H (83-110) mg/dL Lactic Acid 0.4 (0.4-2.0) mmol/L Calcium 8.1 L (8.5-10.1) mg/dL Magnesium 2.3 (1.8-2.4) mg/dl Total Bilirubin 0.3 (0.2-1.0) mg/dL AST 24 (15-37) U/L ALT 28 (14-59) U/L Alkaline Phosphatase 82 (46-116) U/L C-Reactive Protein 4.9 H* (<1.0) mg/dL Total Protein 7.3 (6.4-8.2) g/dl Albumin 2.6 L (3.4-5.0) g/dl Globulin 4.7 gm/dL Albumin/Globulin Ratio 0.6 L (1-2) 10/13/ Range/Units 10:46 WBC (3.98-10.04) K/mm3 RBC (3.98-5.22) M/mm3 Hgb (11.2-15.7) gm/L Hct (34.1-44.9) % MCV (79.4-94.8) fl MCH (25.6-32.2) pg MCHC (32.2-35.5) g/dl RDW Std Deviation (36.4-46.3) fL Plt Count (182-369) K/mm3 MPV (9.4-12.3) fl Neut % (Auto) (34.0-71.1) % Lymph % (Auto) (19.3-51.7) % [place] % (Auto) (4.7-12.5) % Eos % (Auto) (0.7-5.8) Baso % (Auto) (0.1-1.2) % Neut # (Auto) (1.56-6.13) K/mm3 Lymph # (Auto) (1.18-3.74) K/mm3 [place] # (Auto) (0.24-0.36) K/mm3 Eos # (Auto) (0.04-0.36) K/mm3 Baso # (Auto) (0.01-0.08) K/mm3 Manual Slide Review Sodium (136-145) mEq/L Potassium (3.5-5.1) mEq/L Chloride (98-107) mEq/L Carbon Dioxide (21-32) mEq/L Anion Gap (5-15) BUN (7-18) mg/dL Creatinine (0.55-1.02) mg/dL Est Cr Clr Drug Dosing mL/min Estimated GFR (MDRD) (>60) mL/min BUN/Creatinine Ratio (14-18) Glucose (83-115) mg/dL POC Glucose 125 H (83-110) mg/dL Lactic Acid (0.4-2.0) mmol/L Calcium (8.5-10.1) mg/dL Magnesium (1.8-2.4) mg/dl Total Bilirubin (0.2-1.0) mg/dL AST (15-37) U/L ALT (14-59) U/L Alkaline Phosphatase (46-116) U/L C-Reactive Protein (<1.0) mg/dL Total Protein (6.4-8.2) g/dl Albumin (3.4-5.0) g/dl Globulin gm/dL Albumin/Globulin Ratio (1-2) Med Orders - Current: Current Medications Chlordiazepoxide HCl (Librium) 5 mg PO TID [facility] Last Admin: 10/13/16 08:16 Dose: 5 mg Dextrose/Water (Dextrose 50% In Water) 50 ml IVPUSH ASDIRECTED PRN PRN Reason: Hypoglycemia Enoxaparin Sodium (Lovenox) 40 mg SUBCUT DAILY [facility] Last Admin: 10/13/16 08:16 Dose: 40 mg Hydromorphone HCl (Dilaudid) 0.5 mg IVPUSH Q6H PRN PRN Reason: pain Last Admin: 10/12/16 21:54 Dose: 0.5 mg Dextrose/Sodium Chloride (Dextrose 5%-1/2 Ns) 1,000 mls @ 70 mls/hr IV ASDIRECTED [facility] Last Admin: 10/13/16 05:30 Dose: 70 mls/hr Lorazepam (Ativan) 0.5 mg IVPUSH Q8H PRN PRN Reason: Anxiety Pantoprazole Sodium (Protonix Iv) 40 mg IVPUSH BID@0600,1800 [facility] Last Admin: 10/13/16 06:02 Dose: 40 mg Entyvio (Vedolizumab (300 Mg)) 0 each IVPUSH ASDIRECTED [facility] Discontinued Medications Al Hydroxide/Mg Hydroxide (Mag-Al Plus) 30 ml PO ONETIME ONE Stop: 10/10/16 18:32 Last Admin: 10/10/16 18:38 Dose: 30 ml Diatrizoate Meglum/Diatrizoate Sod (Gastrografin 37%) 90 ml PO ONETIME ONE Stop: 10/10/16 19:32 Last Admin: 10/10/16 20:24 Dose: 90 ml Diatrizoate Meglum/Diatrizoate Sod (Gastrografin 37%) 90 ml PO ONETIME ONE Stop: 10/12/16 12:22 Last Admin: 10/12/16 13:24 Dose: 90 ml Diphtheria/Tetanus/Acell Pertussis (Adacel) 0.5 ml IM .ONCE ONE Stop: 10/12/16 09:01 Enoxaparin Sodium (Lovenox) 30 mg SUBCUT DAILY [facility] Last Admin: 10/12/16 09:01 Dose: 30 mg Hydromorphone HCl (Dilaudid) 0.25 mg IVPUSH ONETIME ONE Stop: 10/10/16 16:40 Last Admin: 10/10/16 17:41 Dose: 0.25 mg Sodium Chloride (Sodium Chloride 0.45%) 1,000 mls @ 125 mls/hr IV ASDIRECTED [facility] Last Admin: 10/11/16 07:47 Dose: 125 mls/hr Magnesium Sulfate 2 gm/ Premix 50 mls @ 25 mls/hr IV ONETIME ONE Stop: 10/11/16 19:25 Last Admin: 10/11/16 18:00 Dose: 25 mls/hr Magnesium Sulfate (Magnesium Sulfate 2 Gm In Water 50 Ml) Confirm Administered Dose 50 mls @ as directed .ROUTE .K-MED ONE Stop: 10/11/16 17:46 Last Admin: 10/11/16 18:31 Dose: Not Given Magnesium Sulfate 2 gm/ Premix 50 mls @ 25 mls/hr IV ONETIME ONE Stop: 10/12/16 20:17 Last Admin: 10/12/16 18:56 Dose: 25 mls/hr Iopamidol (Isovue-300 (61%)) 100 ml IVPUSH ONETIME ONE Stop: 10/10/16 19:32 Last Admin: 10/10/16 20:23 Dose: 100 ml Iopamidol (Isovue-300 (61%)) 100 ml IVPUSH ONETIME ONE Stop: 10/12/16 12:22 Last Admin: 10/12/16 13:24 Dose: 100 ml Lidocaine HCl (Xylocaine 2% Jelly) Confirm Administered Dose 10 ml .ROUTE .STK- MED ONE Stop: 10/10/16 21:13 Last Admin: 10/10/16 21:25 Dose: Not Given Lidocaine HCl (Xylocaine 2% Jelly) 10 ml MUCMEM ONETIME ONE Stop: 10/10/16 21:25 Last Admin: 10/10/16 21:24 Dose: 10 ml Ondansetron HCl (Zofran) 4 mg IVPUSH ONETIME ONE Stop: 10/10/16 20:00 Last Admin: 10/10/16 20:04 Dose: 4 mg Ondansetron HCl (Zofran) 4 mg IVPUSH ONETIME ONE Stop: 10/13/16 01:52 Last Admin: 10/13/16 01:59 Dose: 4 mg Pneumococcal Polyvalent Vaccine (Pneumovax 23) 0.5 ml SUBCUT .ONCE ONE Stop: 10/11/16 00:18 Sodium Chloride (Saline Flush) 10 ml FLUSH ASDIRECTED PRN PRN Reason: Keep Vein Open Last Admin: 10/10/16 17:41 Dose: 10 ml Sodium Chloride (Saline Flush) 10 ml FLUSH ONETIME PRN PRN Reason: IV FLUSH Last Admin: 10/10/16 20:23 Dose: 10 ml Sodium Chloride (Saline Flush) 10 ml FLUSH ONETIME PRN PRN Reason: IV FLUSH Stop: 10/12/16 16:00 Last Admin: 10/12/16 13:24 Dose: 10 ml Consult PN Assessment/Plan Procedures: Procedures ASSAY OF FOLIC ACID SERUM (10/03/15) ASSAY OF LIPASE (10/05/16) ASSAY THYROID STIM HORMONE (10/03/15) C DIFF AMPLIFIED PROBE (10/05/16) C-REACTIVE PROTEIN (10/07/16) CHEST X-RAY 1 VIEW FRONTAL (08/15/15) COMP SCREEN MAMMOGRAM ADD-ON (04/28/15) COMPLETE CBC AUTOMATED (10/03/15) COMPLETE CBC W/AUTO DIFF WBC (10/07/16) COMPREHEN METABOLIC PANEL (10/05/16) CT ABD & PELV W/CONTRAST (10/05/16) EMERGENCY DEPT VISIT (08/15/15) EXTREMITY STUDY (08/20/16) GLYCOSYLATED HEMOGLOBIN TEST (10/03/15) HYDRATION IV INFUSION INIT (08/15/15) LEUKOCYTE ASSESSMENT FECAL (10/05/16) LIPID PANEL (10/03/15) OFFICE/OUTPATIENT VISIT EST (08/20/16) ROUTINE VENIPUNCTURE (10/07/16) STOOL CULTR AEROBIC BACT EA (10/05/16) URINALYSIS AUTO W/O SCOPE (11/06/14) URINALYSIS AUTO W/SCOPE (10/05/16) URINE BACTERIA CULTURE (04/22/14) URINE CULTURE/COLONY COUNT (10/05/16) VITAMIN B-12 (10/03/15) X-RAY EXAM OF ABDOMEN (12/24/14) X-RAY EXAM RIBS UNI 2 VIEWS (08/15/15) Problem List Initiated/Reviewed/Updated: Yes Plan: surgical consult dictated DEON
--- NOTE | 2016-10-13 13:40 | PCM.DCSUM1 ---
<Rafaela Joseph M - Last Filed: 10/13/16 13:35> Discharge Summary - Hospital Course Free Text/Narrative:: 71 year old female with a PMH of Crohn's disease presents with abdominal pain associated with minimal passage of stool. There has been no change in habits. She reports a decreased appetite, generalized weakness and malaise. A CT of abdomen and pelvis documents an SBO. A NGT will be placed in the ED. The admission will be to [place] telemetry; NGT placed to suction will be ordered as well as a general surgery consult. Patient continued to have abdominal pain, distention did improve with NG tube. NGT with continued output noted. Repeat CT scan of abdomen and pelvis completed shows persisting SBO. Dr. Su, General Surgeon consulted, recommends with hx of crohn's disease and ongoing SBO, transfer to Gastroenterology for further evaluation/treatment/recommendations. Transfer will be arranged today. - Discharge Data Discharge Date: 10/13/16 (admit date 10/10/16) Discharge Disposition: DC/Tfer to Acute Hospital 02 Condition: Good - Discharge Diagnosis/Problem(s) (1) Abdominal pain SNOMED Code(s): 15981747 ICD Code: R10.9 - UNSPECIFIED ABDOMINAL PAIN Status: Acute Priority: High Qualifiers: Abdominal location: generalized Qualified Code(s): R10.84 - Generalized abdominal pain (2) Crohns disease of small intestine SNOMED Code(s): 81158295 ICD Code: K50.00 - CROHN'S DISEASE OF SMALL INTESTINE WITHOUT COMPLICATIONS Status: Acute Priority: High (3) SBO (small bowel obstruction) SNOMED Code(s): 707016574 ICD Code: K56.69 - OTHER INTESTINAL OBSTRUCTION Status: Acute Priority: High - Patient Summary/Data Operative Procedure(s) Performed: None Complications: None---persistent SBO, transfer for further GI evaluation Consults: Consultations 10/10/16 23:02 Consult to Vault Installer [CONS] Routine OT Evaluation and Treatment [CONS] Routine PT Evaluation and Treatment [CONS] Routine 10/12/16 11:25 Consult to Staff Nurse Icu Resource Team [CONS] Routine 10/12/16 14:41 Consult to Physician [CONS] Routine Labs Pending at D/C: None Recommended Follow-up Testing/Procedures: Transfer for further GI eval/gastroenterology eval/consult Hospital Course: As above - Patient Instructions Diet: NPO (x ice chips- cont with NG tube) Activity: Bedrest Driving: Do Not Drive Showering/Bathing: May Shower - Discharge Plan Home Medications: Home Meds Aspirin 81 mg PO BEDTIME 08/15/15 [History] Calcium Carbonate [Calcium] 1,200 mg PO BID 08/15/15 [History] Cetirizine [ZyrTEC] 10 mg PO DAILY 08/15/15 [History] Cyanocobalamin (Vitamin B-12) [B-12] 1,000 mg PO DAILY 08/15/15 [History] Fenofibrate Nanocrystallized [Fenofibrate] 48 mg PO 1200 08/15/15 [History] Ferrous Sulfate [Iron] 325 mg PO DAILY 08/15/15 [History] Fish Oil/[place]-3 Fatty Acids [Fish Oil 1,000 MG] 1,000 mg PO TID 08/15/15 [ History] Folic Acid 1 tab PO 1200 08/15/15 [History] Furosemide 20 mg PO BID 08/15/15 [History] Potassium Chloride [Klor-Con 10] 10 meq PO TID 08/15/15 [History] Vedolizumab [Entyvio] 300 mg IV ASDIRECTED 08/15/15 [History] chlordiazePOXIDE [Librium] 5 mg PO TID 08/15/15 [History] cloNIDine [Catapres] 0.1 mg PO BID 08/15/15 [History] metFORMIN HCl [Metformin HCl] 1,000 mg PO QAM 08/15/15 [History] metFORMIN HCl [Metformin HCl] 500 mg PO PCDINNER 08/15/15 [History] Menthol [Biofreeze] 1 applic MISC BID PRN 10/11/16 [History] Patient Handouts: Smoking Cessation, Tips for Success, [id number], Smoking Hazards, Small Bowel Obstruction, [id number], Crohn Disease Forms: ED Department Discharge Referrals: Loren Mello [Ordering Only Provider] - 12/14/16 1:30 pm (at [facility] come 15 minutes prior to appointment with photo ID and insurance cards,) Keyona Samuel PA [Primary Care Provider] - - Discharge Summary/Plan Comment DC Time >30 min.: Yes (40 min) - General Info Date of Service: 10/13/16 Admission Dx/Problem (Free Text: Admission Diagnosis/Problem Admission Diagnosis/Problem Small bowel obstruction Persistent SBO; NG tube still present with 300cc out overnight Dr. Su, General Surgery consult who recommends GI consult/transfer for further eval. Functional Status: Reports: Ambulating, Urinating. Denies: Tolerating Diet ( NPO x ice chips) - Review of Systems General: Reports: Weakness HEENT: Reports: No Symptoms Pulmonary: Reports: No Symptoms. Denies: Shortness of Breath, Cough Cardiovascular: Reports: No Symptoms. Denies: Chest Pain, Palpitations, Dyspnea on Exertion Gastrointestinal: Reports: Abdominal Pain, Other (NG). Denies: Nausea, Vomiting Genitourinary: Reports: No Symptoms Neurological: Reports: No Symptoms Psychiatric: Reports: No Symptoms - Patient Data Vitals - Most Recent: Last Vital Signs Temp 98.6 F 10/13/16 10:50 Pulse 83 10/13/16 10:50 Resp 18 10/13/16 10:50 BP 139/59 L 10/13/16 10:50 Pulse Ox 95 10/13/16 10:50 Weight - Most Recent: 65.045 kg I&O - Last 24 hours: Intake & Output 10/12/16 10/13/16 10/13/16 22:59 06:59 14:59 Intake Total 997 605 Output Total 900 Balance 97 605 Lab Results - Last 24 hrs: Laboratory Results - last 24 hr 10/12/16 10/12/16 10/13/16 Range/Units 17:36 20:51 05:00 WBC 7.08 (3.98-10.04) K/mm3 RBC 4.53 (3.98-5.22) M/mm3 Hgb 11.8 (11.2-15.7) gm/L Hct 37.5 (34.1-44.9) % MCV 82.8 (79.4-94.8) fl MCH 26.0 (25.6-32.2) pg MCHC 31.5 L (32.2-35.5) g/dl RDW Std Deviation 46.3 (36.4-46.3) fL Plt Count 540 H (182-369) K/mm3 MPV 8.5 L (9.4-12.3) fl Neut % (Auto) 52.6 (34.0-71.1) % Lymph % (Auto) 29.0 (19.3-51.7) % [place] % (Auto) 16.7 H (4.7-12.5) % Eos % (Auto) 1.4 (0.7-5.8) Baso % (Auto) 0.3 (0.1-1.2) % Neut # (Auto) 3.73 (1.56-6.13) K/mm3 Lymph # (Auto) 2.05 (1.18-3.74) K/mm3 [place] # (Auto) 1.18 H (0.24-0.36) K/mm3 Eos # (Auto) 0.10 (0.04-0.36) K/mm3 Baso # (Auto) 0.02 (0.01-0.08) K/mm3 Manual Slide Review Normal smear Sodium (136-145) mEq/L Potassium (3.5-5.1) mEq/L Chloride (98-107) mEq/L Carbon Dioxide (21-32) mEq/L Anion Gap (5-15) BUN (7-18) mg/dL Creatinine (0.55-1.02) mg/dL Est Cr Clr Drug Dosing mL/min Estimated GFR (MDRD) (>60) mL/min BUN/Creatinine Ratio (14-18) Glucose (83-115) mg/dL POC Glucose 122 H 125 H (83-110) mg/dL Lactic Acid (0.4-2.0) mmol/L Calcium (8.5-10.1) mg/dL Magnesium (1.8-2.4) mg/dl Total Bilirubin (0.2-1.0) mg/dL AST (15-37) U/L ALT (14-59) U/L Alkaline Phosphatase (46-116) U/L C-Reactive Protein (<1.0) mg/dL Total Protein (6.4-8.2) g/dl Albumin (3.4-5.0) g/dl Globulin gm/dL Albumin/Globulin Ratio (1-2) 10/13/16 10/13/16 10/13/16 Range/Units 06:12 06:27 06:27 WBC (3.98-10.04) K/mm3 RBC (3.98-5.22) M/mm3 Hgb (11.2-15.7) gm/L Hct (34.1-44.9) % MCV (79.4-94.8) fl MCH (25.6-32.2) pg MCHC (32.2-35.5) g/dl RDW Std Deviation (36.4-46.3) fL Plt Count (182-369) K/mm3 MPV (9.4-12.3) fl Neut % (Auto) (34.0-71.1) % Lymph % (Auto) (19.3-51.7) % [place] % (Auto) (4.7-12.5) % Eos % (Auto) (0.7-5.8) Baso % (Auto) (0.1-1.2) % Neut # (Auto) (1.56-6.13) K/mm3 Lymph # (Auto) (1.18-3.74) K/mm3 [place] # (Auto) (0.24-0.36) K/mm3 Eos # (Auto) (0.04-0.36) K/mm3 Baso # (Auto) (0.01-0.08) K/mm3 Manual Slide Review Sodium 138 (136-145) mEq/L Potassium 3.1 L (3.5-5.1) mEq/L Chloride 103 (98-107) mEq/L Carbon Dioxide 29 (21-32) mEq/L Anion Gap 9.1 (5-15) BUN 4 L (7-18) mg/dL Creatinine 0.5 L (0.55-1.02) mg/dL Est Cr Clr Drug Dosing 71.98 mL/min Estimated GFR (MDRD) > 60 (>60) mL/min BUN/Creatinine Ratio 8.0 L (14-18) Glucose 128 H (83-115) mg/dL POC Glucose 133 H (83-110) mg/dL Lactic Acid 0.4 (0.4-2.0) mmol/L Calcium 8.1 L (8.5-10.1) mg/dL Magnesium 2.3 (1.8-2.4) mg/dl Total Bilirubin 0.3 (0.2-1.0) mg/dL AST 24 (15-37) U/L ALT 28 (14-59) U/L Alkaline Phosphatase 82 (46-116) U/L C-Reactive Protein 4.9 H* (<1.0) mg/dL Total Protein 7.3 (6.4-8.2) g/dl Albumin 2.6 L (3.4-5.0) g/dl Globulin 4.7 gm/dL Albumin/Globulin Ratio 0.6 L (1-2) 08/16/17 Range/Units 10:46 WBC (3.98-10.04) K/mm3 RBC (3.98-5.22) M/mm3 Hgb (11.2-15.7) gm/L Hct (34.1-44.9) % MCV (79.4-94.8) fl MCH (25.6-32.2) pg MCHC (32.2-35.5) g/dl RDW Std Deviation (36.4-46.3) fL Plt Count (182-369) K/mm3 MPV (9.4-12.3) fl Neut % (Auto) (34.0-71.1) % Lymph % (Auto) (19.3-51.7) % [place] % (Auto) (4.7-12.5) % Eos % (Auto) (0.7-5.8) Baso % (Auto) (0.1-1.2) % Neut # (Auto) (1.56-6.13) K/mm3 Lymph # (Auto) (1.18-3.74) K/mm3 [place] # (Auto) (0.24-0.36) K/mm3 Eos # (Auto) (0.04-0.36) K/mm3 Baso # (Auto) (0.01-0.08) K/mm3 Manual Slide Review Sodium (136-145) mEq/L Potassium (3.5-5.1) mEq/L Chloride (98-107) mEq/L Carbon Dioxide (21-32) mEq/L Anion Gap (5-15) BUN (7-18) mg/dL Creatinine (0.55-1.02) mg/dL Est Cr Clr Drug Dosing mL/min Estimated GFR (MDRD) (>60) mL/min BUN/Creatinine Ratio (14-18) Glucose (83-115) mg/dL POC Glucose 125 H (83-110) mg/dL Lactic Acid (0.4-2.0) mmol/L Calcium (8.5-10.1) mg/dL Magnesium (1.8-2.4) mg/dl Total Bilirubin (0.2-1.0) mg/dL AST (15-37) U/L ALT (14-59) U/L Alkaline Phosphatase (46-116) U/L C-Reactive Protein (<1.0) mg/dL Total Protein (6.4-8.2) g/dl Albumin (3.4-5.0) g/dl Globulin gm/dL Albumin/Globulin Ratio (1-2) Med Orders - Current: Current Medications Chlordiazepoxide HCl (Librium) 5 mg PO TID [facility] Last Admin: 10/13/16 08:16 Dose: 5 mg Dextrose/Water (Dextrose 50% In Water) 50 ml IVPUSH ASDIRECTED PRN PRN Reason: Hypoglycemia Enoxaparin Sodium (Lovenox) 40 mg SUBCUT DAILY [facility] Last Admin: 10/13/16 08:16 Dose: 40 mg Hydromorphone HCl (Dilaudid) 0.5 mg IVPUSH Q6H PRN PRN Reason: pain Last Admin: 10/12/16 21:54 Dose: 0.5 mg Dextrose/Sodium Chloride (Dextrose 5%-1/2 Ns) 1,000 mls @ 70 mls/hr IV ASDIRECTED [facility] Last Admin: 10/13/16 05:30 Dose: 70 mls/hr Lorazepam (Ativan) 0.5 mg IVPUSH Q8H PRN PRN Reason: Anxiety Pantoprazole Sodium (Protonix Iv) 40 mg IVPUSH BID@0600,1800 [facility] Last Admin: 10/13/16 06:02 Dose: 40 mg Entyvio (Vedolizumab (300 Mg)) 0 each IVPUSH ASDIRECTED [facility] Discontinued Medications Al Hydroxide/Mg Hydroxide (Mag-Al Plus) 30 ml PO ONETIME ONE Stop: 10/10/16 18:32 Last Admin: 10/10/16 18:38 Dose: 30 ml Diatrizoate Meglum/Diatrizoate Sod (Gastrografin 37%) 90 ml PO ONETIME ONE Stop: 10/10/16 19:32 Last Admin: 10/10/16 20:24 Dose: 90 ml Diatrizoate Meglum/Diatrizoate Sod (Gastrografin 37%) 90 ml PO ONETIME ONE Stop: 10/12/16 12:22 Last Admin: 10/12/16 13:24 Dose: 90 ml Diphtheria/Tetanus/Acell Pertussis (Adacel) 0.5 ml IM .ONCE ONE Stop: 10/12/16 09:01 Enoxaparin Sodium (Lovenox) 30 mg SUBCUT DAILY [facility] Last Admin: 10/12/16 09:01 Dose: 30 mg Hydromorphone HCl (Dilaudid) 0.25 mg IVPUSH ONETIME ONE Stop: 10/10/16 16:40 Last Admin: 10/10/16 17:41 Dose: 0.25 mg Sodium Chloride (Sodium Chloride 0.45%) 1,000 mls @ 125 mls/hr IV ASDIRECTED [facility] Last Admin: 10/11/16 07:47 Dose: 125 mls/hr Magnesium Sulfate 2 gm/ Premix 50 mls @ 25 mls/hr IV ONETIME ONE Stop: 10/11/16 19:25 Last Admin: 10/11/16 18:00 Dose: 25 mls/hr Magnesium Sulfate (Magnesium Sulfate 2 Gm In Water 50 Ml) Confirm Administered Dose 50 mls @ as directed .ROUTE .STK-MED ONE Stop: 10/11/16 17:46 Last Admin: 10/11/16 18:31 Dose: Not Given Magnesium Sulfate 2 gm/ Premix 50 mls @ 25 mls/hr IV ONETIME ONE Stop: 10/12/16 20:17 Last Admin: 10/12/16 18:56 Dose: 25 mls/hr Iopamidol (Isovue-300 (61%)) 100 ml IVPUSH ONETIME ONE Stop: 10/10/16 19:32 Last Admin: 10/10/16 20:23 Dose: 100 ml Iopamidol (Isovue-300 (61%)) 100 ml IVPUSH ONETIME ONE Stop: 10/12/16 12:22 Last Admin: 10/12/16 13:24 Dose: 100 ml Lidocaine HCl (Xylocaine 2% Jelly) Confirm Administered Dose 10 ml .ROUTE .STK- MED ONE Stop: 10/10/16 21:13 Last Admin: 10/10/16 21:25 Dose: Not Given Lidocaine HCl (Xylocaine 2% Jelly) 10 ml MUCMEM ONETIME ONE Stop: 10/10/16 21:25 Last Admin: 10/10/16 21:24 Dose: 10 ml Ondansetron HCl (Zofran) 4 mg IVPUSH ONETIME ONE Stop: 10/10/16 20:00 Last Admin: 10/10/16 20:04 Dose: 4 mg Ondansetron HCl (Zofran) 4 mg IVPUSH ONETIME ONE Stop: 10/13/16 01:52 Last Admin: 10/13/16 01:59 Dose: 4 mg Pneumococcal Polyvalent Vaccine (Pneumovax 23) 0.5 ml SUBCUT .ONCE ONE Stop: 10/11/16 00:18 Sodium Chloride (Saline Flush) 10 ml FLUSH ASDIRECTED PRN PRN Reason: Keep Vein Open Last Admin: 10/10/16 17:41 Dose: 10 ml Sodium Chloride (Saline Flush) 10 ml FLUSH ONETIME PRN PRN Reason: IV FLUSH Last Admin: 10/10/16 20:23 Dose: 10 ml Sodium Chloride (Saline Flush) 10 ml FLUSH ONETIME PRN PRN Reason: IV FLUSH Stop: 10/12/16 16:00 Last Admin: 10/12/16 13:24 Dose: 10 ml - Exam Quality Assessment: Reports: DVT Prophylaxis General: Reports: Alert, Oriented, Cooperative, No Acute Distress HEENT: Reports: Pupils Equal, EOMI, Mucous Membr. Moist/[place] Neck: Reports: Supple Lungs: Reports: Clear to Auscultation, Normal Respiratory Effort, Decreased Breath Sounds (bases) Cardiovascular: Reports: Regular Rate, Regular Rhythm GI/Abdominal Exam: Distended (mild to moderate), Tender (diffuse) (Female) Exam: Deferred Rectal (Female) Exam: Deferred Extremities: Normal Inspection Neurological: Reports: No New Focal Deficit Psy/Mental Status: Reports: Alert, Normal Affect, Normal Mood *Q Meaningful Use (DIS) - VTE *Q VTE Criteria *Q: - Stroke *Q Stroke Criteria *Q: - AMI *Q AMI Criteria *Q: <Yanet Felipe - Last Filed: 10/13/16 16:14> Discharge Summary - Hospital Course Free Text/Narrative:: The patient has been transferred to [facility] for a higher level of care; she has been accepted by Dr Conti. - Discharge Diagnosis/Problem(s) (1) Crohns disease of small intestine SNOMED Code(s): 71153969 ICD Code: K50.00 - CROHN'S DISEASE OF SMALL INTESTINE WITHOUT COMPLICATIONS Status: Acute Priority: High (2) Abdominal pain SNOMED Code(s): 20816086 ICD Code: R10.9 - UNSPECIFIED ABDOMINAL PAIN Status: Acute Priority: High Qualifiers: Abdominal location: generalized Qualified Code(s): R10.84 - Generalized abdominal pain (3) SBO (small bowel obstruction) SNOMED Code(s): 985832848 ICD Code: K56.69 - OTHER INTESTINAL OBSTRUCTION Status: Acute Priority: High - Patient Summary/Data Consults: Consultations 10/10/16 23:02 Consult to Vault Installer [CONS] Routine OT Evaluation and Treatment [CONS] Routine PT Evaluation and Treatment [CONS] Routine 10/12/16 11:25 Consult to Staff Nurse Icu Resource Team [CONS] Routine 10/12/16 14:41 Consult to Physician [CONS] Routine - Patient Data Vitals - Most Recent: Last Vital Signs Temp 37.3 C 10/13/16 15:12 Pulse 83 10/13/16 15:12 Resp 18 10/13/16 15:12 BP 138/51 L 10/13/16 15:12 Pulse Ox 96 10/13/16 15:12 I&O - Last 24 hours: Intake & Output 10/13/16 10/13/16 10/13/16 06:59 14:59 22:59 Intake Total 605 Output Total 600 Balance 605 -600 Lab Results - Last 24 hrs: Laboratory Results - last 24 hr 10/12/16 10/12/16 10/13/16 Range/Units 17:36 20:51 05:00 WBC 7.08 (3.98-10.04) K/mm3 RBC 4.53 (3.98-5.22) M/mm3 Hgb 11.8 (11.2-15.7) gm/L Hct 37.5 (34.1-44.9) % MCV 82.8 (79.4-94.8) fl MCH 26.0 (25.6-32.2) pg MCHC 31.5 L (32.2-35.5) g/dl RDW Std Deviation 46.3 (36.4-46.3) fL Plt Count 540 H (182-369) K/mm3 MPV 8.5 L (9.4-12.3) fl Neut % (Auto) 52.6 (34.0-71.1) % Lymph % (Auto) 29.0 (19.3-51.7) % [place] % (Auto) 16.7 H (4.7-12.5) % Eos % (Auto) 1.4 (0.7-5.8) Baso % (Auto) 0.3 (0.1-1.2) % Neut # (Auto) 3.73 (1.56-6.13) K/mm3 Lymph # (Auto) 2.05 (1.18-3.74) K/mm3 [place] # (Auto) 1.18 H (0.24-0.36) K/mm3 Eos # (Auto) 0.10 (0.04-0.36) K/mm3 Baso # (Auto) 0.02 (0.01-0.08) K/mm3 Manual Slide Review Normal smear Sodium (136-145) mEq/L Potassium (3.5-5.1) mEq/L Chloride (98-107) mEq/L Carbon Dioxide (21-32) mEq/L Anion Gap (5-15) BUN (7-18) mg/dL Creatinine (0.55-1.02) mg/dL Est Cr Clr Drug Dosing mL/min Estimated GFR (MDRD) (>60) mL/min BUN/Creatinine Ratio (14-18) Glucose (83-115) mg/dL POC Glucose 122 H 125 H (83-110) mg/dL Lactic Acid (0.4-2.0) mmol/L Calcium (8.5-10.1) mg/dL Magnesium (1.8-2.4) mg/dl Total Bilirubin (0.2-1.0) mg/dL AST (15-37) U/L ALT (14-59) U/L Alkaline Phosphatase (46-116) U/L C-Reactive Protein (<1.0) mg/dL Total Protein (6.4-8.2) g/dl Albumin (3.4-5.0) g/dl Globulin gm/dL Albumin/Globulin Ratio (1-2) 0810/13/16 10/13/16 Range/Units 06:12 06:27 06:27 WBC (3.98-10.04) K/mm3 RBC (3.98-5.22) M/mm3 Hgb (11.2-15.7) gm/L Hct (34.1-44.9) % MCV (79.4-94.8) fl MCH (25.6-32.2) pg MCHC (32.2-35.5) g/dl RDW Std Deviation (36.4-46.3) fL Plt Count (182-369) K/mm3 MPV (9.4-12.3) fl Neut % (Auto) (34.0-71.1) % Lymph % (Auto) (19.3-51.7) % [place] % (Auto) (4.7-12.5) % Eos % (Auto) (0.7-5.8) Baso % (Auto) (0.1-1.2) % Neut # (Auto) (1.56-6.13) K/mm3 Lymph # (Auto) (1.18-3.74) K/mm3 [place] # (Auto) (0.24-0.36) K/mm3 Eos # (Auto) (0.04-0.36) K/mm3 Baso # (Auto) (0.01-0.08) K/mm3 Manual Slide Review Sodium 138 (136-145) mEq/L Potassium 3.1 L (3.5-5.1) mEq/L Chloride 103 (98-107) mEq/L Carbon Dioxide 29 (21-32) mEq/L Anion Gap 9.1 (5-15) BUN 4 L (7-18) mg/dL Creatinine 0.5 L (0.55-1.02) mg/dL Est Cr Clr Drug Dosing 71.98 mL/min Estimated GFR (MDRD) > 60 (>60) mL/min BUN/Creatinine Ratio 8.0 L (14-18) Glucose 128 H (83-115) mg/dL POC Glucose 133 H (83-110) mg/dL Lactic Acid 0.4 (0.4-2.0) mmol/L Calcium 8.1 L (8.5-10.1) mg/dL Magnesium 2.3 (1.8-2.4) mg/dl Total Bilirubin 0.3 (0.2-1.0) mg/dL AST 24 (15-37) U/L ALT 28 (14-59) U/L Alkaline Phosphatase 82 (46-116) U/L C-Reactive Protein 4.9 H* (<1.0) mg/dL Total Protein 7.3 (6.4-8.2) g/dl Albumin 2.6 L (3.4-5.0) g/dl Globulin 4.7 gm/dL Albumin/Globulin Ratio 0.6 L (1-2) 10/13/16 Range/Units 10:46 WBC (3.98-10.04) K/mm3 RBC (3.98-5.22) M/mm3 Hgb (11.2-15.7) gm/L Hct (34.1-44.9) % MCV (79.4-94.8) fl MCH (25.6-32.2) pg MCHC (32.2-35.5) g/dl RDW Std Deviation (36.4-46.3) fL Plt Count (182-369) K/mm3 MPV (9.4-12.3) fl Neut % (Auto) (34.0-71.1) % Lymph % (Auto) (19.3-51.7) % [place] % (Auto) (4.7-12.5) % Eos % (Auto) (0.7-5.8) Baso % (Auto) (0.1-1.2) % Neut # (Auto) (1.56-6.13) K/mm3 Lymph # (Auto) (1.18-3.74) K/mm3 [place] # (Auto) (0.24-0.36) K/mm3 Eos # (Auto) (0.04-0.36) K/mm3 Baso # (Auto) (0.01-0.08) K/mm3 Manual Slide Review Sodium (136-145) mEq/L Potassium (3.5-5.1) mEq/L Chloride (98-107) mEq/L Carbon Dioxide (21-32) mEq/L Anion Gap (5-15) BUN (7-18) mg/dL Creatinine (0.55-1.02) mg/dL Est Cr Clr Drug Dosing mL/min Estimated GFR (MDRD) (>60) mL/min BUN/Creatinine Ratio (14-18) Glucose (83-115) mg/dL POC Glucose 125 H (83-110) mg/dL Lactic Acid (0.4-2.0) mmol/L Calcium (8.5-10.1) mg/dL Magnesium (1.8-2.4) mg/dl Total Bilirubin (0.2-1.0) mg/dL AST (15-37) U/L ALT (14-59) U/L Alkaline Phosphatase (46-116) U/L C-Reactive Protein (<1.0) mg/dL Total Protein (6.4-8.2) g/dl Albumin (3.4-5.0) g/dl Globulin gm/dL Albumin/Globulin Ratio (1-2) Med Orders - Current: Current Medications Discontinued Medications Al Hydroxide/Mg Hydroxide (Mag-Al Plus) 30 ml PO ONETIME ONE Stop: 10/10/16 18:32 Last Admin: 10/10/16 18:38 Dose: 30 ml Chlordiazepoxide HCl (Librium) 5 mg PO TID [facility] Last Admin: 10/13/16 15:03 Dose: Not Given Dextrose/Water (Dextrose 50% In Water) 50 ml IVPUSH ASDIRECTED PRN PRN Reason: Hypoglycemia Diatrizoate Meglum/Diatrizoate Sod (Gastrografin 37%) 90 ml PO ONETIME ONE Stop: 10/10/16 19:32 Last Admin: 10/10/16 20:24 Dose: 90 ml Diatrizoate Meglum/Diatrizoate Sod (Gastrografin 37%) 90 ml PO ONETIME ONE Stop: 10/12/16 12:22 Last Admin: 10/12/16 13:24 Dose: 90 ml Diphtheria/Tetanus/Acell Pertussis (Adacel) 0.5 ml IM .ONCE ONE Stop: 10/12/16 09:01 Enoxaparin Sodium (Lovenox) 30 mg SUBCUT DAILY [facility] Last Admin: 10/12/16 09:01 Dose: 30 mg Enoxaparin Sodium (Lovenox) 40 mg SUBCUT DAILY [facility] Last Admin: 10/13/16 08:16 Dose: 40 mg Hydromorphone HCl (Dilaudid) 0.25 mg IVPUSH ONETIME ONE Stop: 10/10/16 16:40 Last Admin: 10/10/16 17:41 Dose: 0.25 mg Hydromorphone HCl (Dilaudid) 0.5 mg IVPUSH Q6H PRN PRN Reason: pain Last Admin: 10/12/16 21:54 Dose: 0.5 mg Sodium Chloride (Sodium Chloride 0.45%) 1,000 mls @ 125 mls/hr IV ASDIRECTED [facility] Last Admin: 10/11/16 07:47 Dose: 125 mls/hr Magnesium Sulfate 2 gm/ Premix 50 mls @ 25 mls/hr IV ONETIME ONE Stop: 10/11/16 19:25 Last Admin: 10/11/16 18:00 Dose: 25 mls/hr Dextrose/Sodium Chloride (Dextrose 5%-1/2 Ns) 1,000 mls [facility] Admin: 10/13/16 05:30 Dose: 70 mls/hr Magnesium Sulfate (Magnesium Sulfate 2 Gm In Water 50 Ml) Confirm Administered Dose 50 mls @ as directed .ROUTE .STK-MED ONE Stop: 10/11/16 17:46 Last Admin: 10/11/16 18:31 Dose: Not Given Magnesium Sulfate 2 gm/ Premix 50 mls @ 25 mls/hr IV ONETIME ONE Stop: 10/12/16 20:17 Last Admin: 10/12/16 18:56 Dose: 25 mls/hr Iopamidol (Isovue-300 (61%)) 100 ml IVPUSH ONETIME ONE Stop: 10/10/16 19:32 Last Admin: 10/10/16 20:23 Dose: 100 ml Iopamidol (Isovue-300 (61%)) 100 ml IVPUSH ONETIME ONE Stop: 10/12/16 12:22 Last Admin: 10/12/16 13:24 Dose: 100 ml Lidocaine HCl (Xylocaine 2% Jelly) Confirm Administered Dose 10 ml .ROUTE .STK- MED ONE Stop: 10/10/16 21:13 Last Admin: 10/10/16 21:25 Dose: Not Given Lidocaine HCl (Xylocaine 2% Jelly) 10 ml MUCMEM ONETIME ONE Stop: 10/10/16 21:25 Last Admin: 10/10/16 21:24 Dose: 10 ml Lorazepam (Ativan) 0.5 mg IVPUSH Q8H PRN PRN Reason: Anxiety Ondansetron HCl (Zofran) 4 mg IVPUSH ONETIME ONE Stop: 10/10/16 20:00 Last Admin: 10/10/16 20:04 Dose: 4 mg Ondansetron HCl (Zofran) 4 mg IVPUSH ONETIME ONE Stop: 10/13/16 01:52 Last Admin: 10/13/16 01:59 Dose: 4 mg Pantoprazole Sodium (Protonix Iv) 40 mg IVPUSH BID@0600,1800 HIRAL Last Admin: 10/13/16 06:02 Dose: 40 mg Entyvio (Vedolizumab (300 Mg)) 0 each IVPUSH ASDIRECTED [facility] Pneumococcal Polyvalent Vaccine (Pneumovax 23) 0.5 ml SUBCUT .ONCE ONE Stop: 10/11/16 00:18 Sodium Chloride (Saline Flush) 10 ml FLUSH ASDIRECTED PRN PRN Reason: Keep Vein Open Last Admin: 10/10/16 17:41 Dose: 10 ml Sodium Chloride (Saline Flush) 10 ml FLUSH ONETIME PRN PRN Reason: IV FLUSH Last Admin: 10/10/16 20:23 Dose: 10 ml Sodium Chloride (Saline Flush) 10 ml FLUSH ONETIME PRN PRN Reason: IV FLUSH Stop: 10/12/16 16:00 Last Admin: 10/12/16 13:24 Dose: 10 ml *Q Meaningful Use (DIS) - VTE *Q VTE Criteria *Q: - Stroke *Q Stroke Criteria *Q: - AMI *Q AMI Criteria *Q:
[2016-10-13 15:18] VITALS: BP 138/51
--- NOTE | 2016-10-14 11:02 | CONS ---
CONSULTING PHYSICIAN: Danny Su MD DATE OF CONSULTATION: 10/13/2016 HISTORY OF PRESENT ILLNESS: This is a 71-year-old, who came in through the emergency room on October 10 with generalized abdominal pain. This started 2 days ago and gradually increased consistent with crampy pain now with abdominal distention, some occasional vomiting, and some stooling. The patient's CT scan demonstrated a bowel obstruction possible due to Crohn disease. This is consistent with a history of having had Crohn disease for a year. She sees Dr. Velasquez who has recently started on biologic called the Entyvramírez. The patient since starting that medication states has not really noted any change in her symptoms and continues to have loose bowel movements a day. She states that the last time she had abdominal pain was when she had an appendectomy at which time her Crohn disease was discovered. The patient currently in the hospital has been on NG suction since Tuesday and has not really progressed, continues to have abdominal distention, but her pain has improved. PAST MEDICAL HISTORY: Crohn disease, difficulty hearing, hypertension, high cholesterol, history of deep vein thrombosis, COPD, renal calculi, osteoporosis, depression, diabetes type 2, anemia, B12 deficiency, and iron deficiency. PAST SURGICAL HISTORY: Appendectomy and cholecystectomy. REVIEW OF SYSTEMS: No chest pain, shortness of breath, cough, hoarseness, wheezing, fainting, weakness, numbness, or convulsions. No nausea at this time and no vomiting. No chills or fever. LABORATORY DATA: Shows a hemoglobin of 11.8, white count 7, platelet count is 540. Sodium 138, potassium 3.1, chloride 103, BUN is 4, and creatinine is 0.5. PHYSICAL EXAMINATION: GENERAL: Reveals an alert cooperative female. VITAL SIGNS: Pulse of 83, blood pressure is 140/51, temperature 97. HEENT: Eyes, sclerae white. Extraocular muscle motion normal. Oral cavity, healthy mucous membrane with mouth and tongue. NECK: Supple. No nodes. No thyromegaly. LUNGS: Clear. No rales, rhonchi, fremitus, or dullness. HEART: Tones shows regular rate. ABDOMEN: Distended bowel sounds, somewhat hyperactive, no point tenderness. EXTREMITIES: Upper and lower extremities, no angulation deformities. SKIN: Warm and dry. NEUROLOGIC: No sensorineural deficit. MUSCULOSKELETAL: Moves all 4 extremities without problem. ASSESSMENT: Small bowel obstruction and active Crohn disease. Probably, the two are related. Given her treatment in [place] design specialist, it would be better that she be evaluated for a higher level of care with Gastroenterology in association with Surgery, see if they can avoid or bring the patient through this by either modifying her disease with medication or a minor possibility would be stricturoplasty. Would recommend transfer. The family is in agreement. MMODAL /[id number]
[2016-11-25] MEDS ORDERED: [UNRECOGNIZED DRUG - OTHER] IVPUSH SCH (09:00)
== END 2016-10-13 15:40 | DRG 389 ==
LOC: JD.ED 15:49 → JD.MS 21:36
PROVIDERS: ADMIT Internal Medicine Cardiovascular Disease; ATTEND Internal Medicine Cardiovascular Disease
PROC: 0D9670Z Drainage of Stomach with Drainage Device, Via Natural or Artificial Opening (ICD-10-PCS; principal; 2016-10-12)
DX: K56.60 Unspecified intestinal obstruction (principal); K56.69 Other intestinal obstruction; E78.00 Pure hypercholesterolemia, unspecified; K50.00 Crohn's disease of small intestine without complications; D64.9 Anemia, unspecified; F41.9 Anxiety disorder, unspecified; F32.9 Major depressive disorder, single episode, unspecified; E78.5 Hyperlipidemia, unspecified; I10 Essential (primary) hypertension; E11.9 Type 2 diabetes mellitus without complications; Z79.84 Long term (current) use of oral hypoglycemic drugs; M19.90 Unspecified osteoarthritis, unspecified site; M81.0 Age-related osteoporosis without current pathological fracture; F17.200 Nicotine dependence, unspecified, uncomplicated; H91.90 Unspecified hearing loss, unspecified ear; Z86.718 Personal history of other venous thrombosis and embolism; H54.7 Unspecified visual loss; J44.9 Chronic obstructive pulmonary disease, unspecified; E53.8 Deficiency of other specified B group vitamins; R53.1 Weakness; Z88.0 Allergy status to penicillin; Z91.018 Allergy to other foods; Z79.82 Long term (current) use of aspirin; Z79.899 Other long term (current) drug therapy
CPT/HCPCS: 36415; 74020; 74177; 80053; 83690; 85025; 86140; 96374; 96375; 99285; A9270; J1170; J2405; J7050 ×2; Q9963; Q9967; 80048; 82962; 83605; 83735; 94760; 97161-GP; 97165-GO; 99284; C9113; J1650; J3475; J7030; J7042

== ENCOUNTER 2018-05-26 08:33 | Emergency (ER) | payer MEDICARE, OTHER ==
[2018-05-26] MEDS ORDERED: Ondansetron 4 MG/2 ML SDV IVPUSH ONE (09:41)
[2018-05-26] MEDS ORDERED: Sodium Chloride 0.9% 1,000 ML IV ONE (09:42)
[2018-05-26] MEDS ORDERED: Sodium Chloride 0.9% 1,000 ML IV SCH (09:45)
--- NOTE | 2018-05-26 10:45 | CR ---
Abdomen: Supine view of the abdomen was obtained. Comparison: Previous abdominal x-ray of 10/10/16. Bowel gas pattern is normal. Slight degenerative change is scattered within the spine. No abnormal calcifications or soft tissue abnormality is seen. Impression: 1. Nothing acute is identified on supine abdominal x-ray. Diagnostic code #2
[2018-05-26] MEDS ORDERED: Diatrizoate Meglumine/Diatrizoate Sodium 37% 120 ML Bottle PO ONE (12:28)
[2018-05-26] MEDS ORDERED: Iopamidol 755 Mg/ML 100 ML Bottle IVPUSH ONE (12:28)
--- NOTE | 2018-05-26 12:28 | EDM.PDOC ---
ED HPI GENERAL MEDICAL PROBLEM - General Chief Complaint: Gastrointestinal Problem Stated Complaint: ABDOMINAL PAIN Time Seen by Provider: 05/26/18 09:41 Source of Information: Reports: Patient, Family History Limitations: Reports: No Limitations - History of Present Illness INITIAL COMMENTS - FREE TEXT/NARRATIVE: 72 yo F h/o Crohn's dz comes in today for generalized abdominal "pressure" and diarrhea since Tuesday. She states she has had this before, usually during her Crohn's flare ups. She decided to come in today to "get it taken care of before it gets worse". She does have a h/o "intestinal blockage" 2 years ago for which she needed to be transferred to [place] for surgery. She usually gets Entyvio infusion every 2 months for her Crohn's and believes her next infusion is next week. She denies any recent changes in food, travel, or antibiotic use. No sick contacts. She c/o chills, nausea, diarrhea, decreased appetite. She denies fever, chest pain, cough, abdominal pain, bloody urine or stool, or any other GI/ complaints. No other concerns at this time. Her PCP is RAQUEL Bruno. Sees RAQUEL Gramajo at [facility] for Crohn's. Middle Abdomen Pain Score (Numeric/FACES): 6 - Related Data Allergies Allergy/AdvReac Type Severity Reaction Status Date / Time Penicillins Allergy Cannot Verified 05/26/18 08:44 Remember pistachio nut Allergy Cannot Verified 05/26/18 08:44 Remember Home Meds: Home Meds Aspirin 81 mg PO BEDTIME 08/15/15 [History] Calcium Carbonate [Calcium] 1,200 mg PO BID 08/15/15 [History] Cetirizine [ZyrTEC] 10 mg PO DAILY 08/15/15 [History] Cyanocobalamin (Vitamin B-12) [B-12] 1,000 mg PO 1200 08/15/15 [History] Fenofibrate Nanocrystallized [Fenofibrate] 48 mg PO 1200 08/15/15 [History] Ferrous Sulfate [Iron] 325 mg PO BID 08/15/15 [History] Fish Oil/[place]-3 Fatty Acids [Fish Oil 1,000 MG] 1,000 mg PO TID 08/15/15 [ History] Folic Acid 1 tab PO 1200 08/15/15 [History] Furosemide 0 mg PO BID 08/15/15 [History] Potassium Chloride [Klor-Con 10] 10 meq PO TID 08/15/15 [History] Vedolizumab [Entyvio] 300 mg IV ASDIRECTED 08/15/15 [History] chlordiazePOXIDE [Librium] 5 mg PO TID 08/15/15 [History] cloNIDine [Catapres] 0.2 mg PO BEDTIME 08/15/15 [History] metFORMIN HCl [Metformin HCl] 1,000 mg PO BID 08/15/15 [History] Menthol [Biofreeze] 1 applic MISC BID PRN 10/11/16 [History] Acetaminophen [Tylenol Extra Strength] 500 mg PO BEDTIME 05/26/18 [History] Apixaban [Eliquis] 2.5 mg PO BID 05/26/18 [History] Ondansetron [Zofran ODT] 4 mg PO Q6H PRN #8 tab.dis 05/26/18 [Rx] Pnv No.121/Iron/Folic Acid [ Multivitamin Tablet] 1 tab PO DAILY [History] predniSONE [Prednisone] 20 mg PO BID 14 Days #21 tablet 05/26/18 [Rx] Past Medical History HEENT History: Reports: Hard of Hearing, Impaired Vision Other HEENT History: wears eyeglasses. Cardiovascular History: Reports: Blood Clots/VTE/DVT, High Cholesterol, Hypertension Respiratory History: Reports: Other (See Below) Other Respiratory History: allergies. Gastrointestinal History: Reports: Other (See Below) Other Gastrointestinal History: chrohns Genitourinary History: Reports: Renal Calculus, UTI, Recurrent EXHAUST TENDER History: Reports: Musculoskeletal History: Reports: Osteoarthritis, Osteoporosis Neurological History: Reports: Headaches, Chronic Other Neuro History: headaches Psychiatric History: Reports: Anxiety, Depression Endocrine/Metabolic History: Reports: Diabetes, Type II Hematologic History: Reports: Anemia, B12 Deficiency, Iron Deficiency - Infectious Disease History Infectious Disease History: Reports: Measles - Past Surgical History GI Surgical History: Reports: Appendectomy, Cholecystectomy, Colonoscopy Social & Family History - Family History Family Medical History: Noncontributory - Tobacco Use Smoking Status *Q: Never Smoker Second Hand Smoke Exposure: No - Caffeine Use Caffeine Use: Reports: Coffee Other Caffeine Use: rare - Recreational Drug Use Recreational Drug Use: No - Living Situation & Occupation Living situation: Reports: Occupation: Retired ED ROS GENERAL - Review of Systems Review Of Systems: See Below Constitutional: Reports: Chills, Decreased Appetite HEENT: Reports: Glasses, Other (hearing aids) Respiratory: Reports: No Symptoms. Denies: Shortness of Breath, Cough Cardiovascular: Reports: No Symptoms. Denies: Chest Pain Endocrine: Reports: No Symptoms GI/Abdominal: Reports: Diarrhea, Decreased Appetite, Nausea. Denies: Abdominal Pain (abdominal "pressure"), Constipation, Vomiting : Reports: No Symptoms Musculoskeletal: Reports: No Symptoms Skin: Reports: No Symptoms Neurological: Reports: No Symptoms Psychiatric: Reports: No Symptoms Hematologic/Lymphatic: Reports: No Symptoms Immunologic: Reports: No Symptoms ED EXAM, GI/ABD - Physical Exam Exam: See Below Exam Limited By: No Limitations General Appearance: Alert, WD/WN, No Apparent Distress Eyes: Bilateral: Normal Appearance, EOMI Ears: Normal External Exam Throat/Mouth: Normal Inspection, Normal Lips, Normal Teeth, Normal Gums, Normal Oropharynx, Normal Voice, No Airway Compromise Neck: Normal Inspection, Supple, Non-Tender, Full Range of Motion Respiratory/Chest: No Respiratory Distress, Lungs Clear, Normal Breath Sounds, No Accessory Muscle Use, Chest Non-Tender Cardiovascular: Normal Peripheral Pulses, Regular Rate, Rhythm, No Edema, No Gallop, No JVD, No Murmur, No Rub GI/Abdominal Exam: Soft, Non-Tender, No Organomegaly, No Distention, No Abnormal Bruit, No Mass, Pelvis Stable, Abnormal Bowel Sounds (hyperactive). No : Guarding, Rigid, Rebound (Female) Exam: Deferred Rectal (Female) Exam: Deferred Back Exam: Normal Inspection Neurological: Alert, Oriented, CN II-XII Intact, Normal Cognition, Normal Gait, Normal Reflexes, No Motor/Sensory Deficits Psychiatric: Normal Affect, Normal Mood Skin Exam: Warm, Dry, Intact, Normal Color, No Rash Course - Vital Signs Last Recorded V/S: Last Vital Signs Temp 97.7 F 05/26/18 08:35 Pulse 76 05/26/18 08:35 Resp 16 05/26/18 08:35 BP 134/56 L 05/26/18 08:35 Pulse Ox 97 05/26/18 08:35 - Orders/Labs/Meds Labs: Laboratory Tests 05/26/18 05/26/18 05/26/18 Range/Units 09:55 09:55 09:55 WBC 7.66 (3.98-10.04) K/mm3 RBC 4.38 (3.98-5.22) M/mm3 Hgb 11.0 L (11.2-15.7) gm/L Hct 35.7 (34.1-44.9) % MCV 81.5 (79.4-94.8) fl MCH 25.1 L (25.6-32.2) pg MCHC 30.8 L (32.2-35.5) g/dl RDW Std Deviation 47.2 H (36.4-46.3) fL Plt Count 406 H (182-369) K/mm3 MPV 8.6 L (9.4-12.3) fl Neut % (Auto) 59.1 (34.0-71.1) % Lymph % (Auto) 27.7 (19.3-51.7) % [place] % (Auto) 11.2 (4.7-12.5) % Eos % (Auto) 1.6 (0.7-5.8) Baso % (Auto) 0.3 (0.1-1.2) % Neut # (Auto) 4.53 (1.56-6.13) K/mm3 Lymph # (Auto) 2.12 (1.18-3.74) K/mm3 [place] # (Auto) 0.86 H (0.24-0.36) K/mm3 Eos # (Auto) 0.12 (0.04-0.36) K/mm3 Baso # (Auto) 0.02 (0.01-0.08) K/mm3 ESR 94 H (0-20) mm/hr Sodium 140 (136-145) mEq/L Potassium 3.9 (3.5-5.1) mEq/L Chloride 102 (98-107) mEq/L Carbon Dioxide 27 (21-32) mEq/L Anion Gap 14.9 (5-15) BUN 11 (7-18) mg/dL Creatinine 0.8 (0.55-1.02) mg/dL Est Cr Clr Drug Dosing 44.31 mL/min Estimated GFR (MDRD) > 60 (>60) mL/min BUN/Creatinine Ratio 13.8 L (14-18) Glucose 156 H (83-115) mg/dL Calcium 9.7 (8.5-10.1) mg/dL Total Bilirubin 0.2 (0.2-1.0) mg/dL AST 26 (15-37) U/L ALT 35 (14-59) U/L Alkaline Phosphatase 110 (46-116) U/L C-Reactive Protein 2.1 H* (<1.0) mg/dL Total Protein 7.9 (6.4-8.2) g/dl Albumin 2.9 L (3.4-5.0) g/dl Globulin 5.0 gm/dL Albumin/Globulin Ratio 0.6 L (1-2) Meds: Medications Discontinued Medications Generic Name Dose Route Start Last Admin Trade Name Freq PRN Reason Stop Dose Admin Diatrizoate Meglum/Diatrizoate Sod 90 ml 05/26/18 12:28 05/26/18 13:20 Gastrografin 37% PO 05/26/18 12:29 90 ml ONETIME ONE Administration Sodium Chloride 1,000 mls @ 100 mls/hr 05/26/18 09:45 Normal Saline IV ASDIRECTED HIRAL Sodium Chloride 1,000 mls @ 999 mls/hr 05/26/18 09:42 05/26/18 10:05 Normal Saline IV 05/26/18 10:42 999 mls/hr ONETIME ONE Administration Iopamidol 100 ml 05/26/18 12:28 05/26/18 13:20 Isovue-370 (76%) IVPUSH 05/26/18 12:29 100 ml ONETIME ONE Administration Ondansetron HCl 4 mg 05/26/18 09:41 05/26/18 10:00 Zofran IVPUSH 05/26/18 09:42 4 mg ONETIME ONE Administration - Re-Assessments/Exams Free Text/Narrative Re-Assessment/Exam: 05/26/18 9:40 I have ordered CBC, CMP, CRP, ESR, KUB Zofran 4mg IV push and 1L bolus NS ordered 05/26/18 10:00 CBC WNL. CMP shows elevated glucose at 156. ESR elevated at 94, CRP elevated 2.1. 05/26/18 10:[address] Diaz as nothing acute seen. Dr. Bryant and I reviewed as well and saw some mild constipation. 05/26/18 12:13 CT abdomen and pelvis w/ contrast ordered. 05/26/18 14:43 CT abdomen read by Dr. Diaz as: 1. Areas of bowel wall thickening within the proximal jejunum and more distal ileum. Ileal loops are mildly dilated most likely due to slight stenosis at the ileocecal valve. This dilatation appears to be fairly chronic and is similar to previous exam. 2. Areas of bowel wall thickening within the sigmoid and descending colon. 3. No significant inflammatory change is seen. 4. Other incidental findings as noted above. This is therefore likely to be a Crohn's exacerbation. At this time, will discharge and send home with prednisone x 2 weeks, f/u with PCP. Departure - Departure Time of Disposition: 14:44 Disposition: Home, Self-Care 01 Condition: Fair Clinical Impression: Exacerbation of Crohn's disease - Discharge Information *PRESCRIPTION DRUG MONITORING PROGRAM REVIEWED*: Not Applicable *COPY OF PRESCRIPTION DRUG MONITORING REPORT IN PATIENT GAVIN: Not Applicable Prescriptions: Ondansetron [Zofran ODT] 4 mg PO Q6H PRN #8 tab.dis PRN Reason: Nausea predniSONE [Prednisone] 20 mg PO BID 14 Days #21 tablet Instructions: Nausea and Vomiting, Adult, [id number], Diarrhea, Adult, Easy- to-Read Referrals: Ivette Suarez NP [Primary Care Provider] - Loren Mello [Ordering Only Provider] - Forms: ED Department Discharge Additional Instructions: You were seen in the ED today for nausea and abdominal pressure since Tuesday. At this time, your workup was negative for any infectious process and only suggests inflammation related to Crohn's. Abdominal Xray showed some mild constipation. CT abdomen showed there does seem to be a flare up of your Crohn's. This is a chronic issue that needs to be followed by your primary care provider. Recommend follow up with Ivette GARCÍA within the next few days and for future similar issues. You will be sent home today with Prednisone x 2 weeks , take 1 tab twice per day for the first week, then 1 tab daily for second week. You will also receive prescription for Zofran for nausea as needed. Please return to ED if new or worsening symptoms.
--- NOTE | 2018-05-26 14:27 | CT ---
CT abdomen and pelvis Technique: Multiple axial sections were obtained from above the dome of the diaphragm inferiorly through the pubic symphysis. Intravenous and oral contrast has been given. Delayed images were obtained through the pelvis. Comparison: Prior CT abdomen and pelvis exam of 10/12/16. Findings: Visualized lung bases shows nothing acute. Liver contains no focal abnormality. Spleen appears within normal limits. Adrenal glands show no nodule. Pancreas is within normal limits for age. Kidneys show symmetric contrast enhancement. Nonobstructing calculus is noted within the lower right kidney measuring approximately 8.9 mm. Delayed images show no significant contrast within the bladder raising the possibility of dehydration. No pelvic mass or adenopathy is seen. Bowel wall thickening is noted within the sigmoid colon and descending colon. Mild bowel wall thickening is seen within several small bowel loops within the proximal jejunum. Additional bowel wall thickening is seen within several ileal loops. Distal ileum is mildly dilated as well as other additional ileal loops which are mildly dilated. This dilatation may relate to a mild area of stenosis at the ileocecal valve. I believe that these findings are most likely chronic. No free fluid or surrounding inflammatory change is seen. Appendix not visualized. Bone window settings were reviewed which shows scattered degenerative change within the spine most prominent within the apophyseal joints of the lower lumbar spine. 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 Impression: 1. Areas of bowel wall thickening within the proximal jejunum and more distal ileum. Ileal loops are mildly dilated most likely due to slight stenosis at the ileocecal valve. This dilatation appears to be fairly chronic and is similar to previous exam. 2. Areas of bowel wall thickening within the sigmoid and descending colon. 3. No significant inflammatory change is seen. 4. Other incidental findings as noted above. Diagnostic code #3
[2018-05-26 15:05] VITALS: BP 118/50
== END 2018-05-26 15:00 | disposition home or self-care (01) ==
LOC: JD.ED 08:33
DX: K50.90 Crohn's disease, unspecified, without complications (principal); I10 Essential (primary) hypertension; E78.00 Pure hypercholesterolemia, unspecified; E11.9 Type 2 diabetes mellitus without complications; F41.9 Anxiety disorder, unspecified; F32.9 Major depressive disorder, single episode, unspecified; Z79.82 Long term (current) use of aspirin; Z79.899 Other long term (current) drug therapy; Z79.84 Long term (current) use of oral hypoglycemic drugs; Z88.0 Allergy status to penicillin; Z91.018 Allergy to other foods; Z86.718 Personal history of other venous thrombosis and embolism
CPT/HCPCS: 36415; 74018; 74177; 80053; 85025; 85652; 86140; 96361; 96374; 99284; J2405; J7040; Q9963; Q9967

== ENCOUNTER 2020-05-21 15:23 | Inpatient (IN) | payer MEDICARE, OTHER ==
[2020-05-21] MEDS ORDERED: Sodium Chloride 0.9% 10 ML Syringe FLUSH PRN (15:45)
[2020-05-21] MEDS ORDERED: Sodium Chloride 0.9% 1,000 ML IV ONE (15:45)
[2020-05-21] MEDS ORDERED: Ondansetron 4 MG/2 ML SDV IVPUSH ONE (15:45)
--- NOTE | 2020-05-21 15:46 | EDM.PDOC ---
ED HPI GENERAL MEDICAL PROBLEM - General Chief Complaint: Gastrointestinal Problem Stated Complaint: BOWEL OBSTRUCTION Time Seen by Provider: 05/21/20 15:44 Source of Information: Reports: Patient, Old Records (x-rays/labs done from today's clinic visit), Provider (Nighat Turner from today's clinic visit), RN Notes Reviewed History Limitations: Reports: No Limitations - History of Present Illness INITIAL COMMENTS - FREE TEXT/NARRATIVE: Patient is a 74-year-old female who presents to the ER for a possible bowel obstruction. Patient was seen in the clinic this morning, by Nighat Turner for ongoing cold-like symptoms. She also complained of some generalized left-sided abdomen pain and the patient does have a history of Crohn's, laboratory evaluation was obtained along with abdominal x-rays, and the abdominal x-ray showed a possible developing small bowel obstruction or partial small bowel obstruction. Patient has been nauseous, and had some vomiting this morning, she is denying any nausea at this time, she is still having some left-sided abdomen pain however. Patient's laboratory evaluation demonstrated a mildly elevated white count at 12.02 was 66.7% neutrophils. Lipase was low, the patient CRP is elevated to 12.6, the total bilirubin is 0.3, liver enzymes are all somewhat elevated, urinalysis is negative for infection. The provider in the clinic sent her to the ER for further work-up regarding possible CT and hospital admission. Patient's not had any fevers or chills, she has had a cough but is have been having ongoing cold-like symptoms. She did have a COVID-19 test taken at clinic as well the results are still pending. Patient has had an appendectomy, cholecystectomy, and a colonoscopy as far as GI surgeries, and again she does have a history of Crohn's disease. Patient states that she is not been able to pass gas since earlier this morning. - Related Data Allergies Allergy/AdvReac Type Severity Reaction Status Date / Time Penicillins Allergy Cannot Verified 05/21/20 15:44 Remember pistachio nut Allergy Cannot Verified 05/21/20 15:44 Remember Home Meds: Home Meds Aspirin 81 mg PO BEDTIME 08/15/15 [History] Calcium Carbonate [Calcium] 1,200 mg PO BID 08/15/15 [History] Cetirizine [ZyrTEC] 10 mg PO DAILY 08/15/15 [History] Cyanocobalamin (Vitamin B-12) [B-12] 1,000 mg PO 1200 08/15/15 [History] Fenofibrate Nanocrystallized [Fenofibrate] 48 mg PO 1200 08/15/15 [History] Ferrous Sulfate [Iron] 325 mg PO BID 08/15/15 [History] Fish Oil/[place]-3 Fatty Acids [Fish Oil 1,000 MG] 1,000 mg PO TID 08/15/15 [History] Folic Acid 1 tab PO 1200 08/15/15 [History] Furosemide 0 mg PO BID 08/15/15 [History] Potassium Chloride [Klor-Con 10] 10 meq PO TID 08/15/15 [History] Vedolizumab [Entyvio] 300 mg IV ASDIRECTED 08/15/15 [History] chlordiazePOXIDE [Librium] 5 mg PO TID 08/15/15 [History] cloNIDine [Catapres] 0.2 mg PO BEDTIME 08/15/15 [History] metFORMIN HCl [Metformin HCl] 1,000 mg PO BID 08/15/15 [History] Menthol [Biofreeze] 1 applic MISC BID PRN 10/11/16 [History] Acetaminophen [Tylenol Extra Strength] 500 mg PO BEDTIME 05/26/18 [History] Apixaban [Eliquis] 2.5 mg PO BID 05/26/18 [History] Ondansetron [Zofran ODT] 4 mg PO Q6H PRN #8 tab.dis 05/26/18 [Rx] Pnv No.121/Iron/Folic Acid [ Multivitamin Tablet] 1 tab PO DAILY [History] predniSONE [Prednisone] 20 mg PO BID 14 Days #21 tablet 05/26/18 [Rx] Past Medical History HEENT History: Reports: Hard of Hearing, Impaired Vision Other HEENT History: wears eyeglasses. Cardiovascular History: Reports: Blood Clots/VTE/DVT, High Cholesterol, Hypertension Respiratory History: Reports: Other (See Below) Other Respiratory History: allergies. 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: Musculoskeletal History: Reports: Osteoarthritis, Osteoporosis Neurological History: Reports: Headaches, Chronic Other Neuro History: headaches Psychiatric History: Reports: Anxiety, Depression Endocrine/Metabolic History: Reports: Diabetes, Type II Hematologic History: Reports: Anemia, B12 Deficiency, Iron Deficiency - Infectious Disease History Infectious Disease History: Reports: Measles - Past Surgical History GI Surgical History: Reports: Appendectomy, Cholecystectomy, Colonoscopy Social & Family History - Family History Family Medical History: No Pertinent Family History - Caffeine Use Caffeine Use: Reports: Coffee Other Caffeine Use: rare - Living Situation & Occupation Living situation: Reports: Occupation: Retired ED ROS GENERAL - Review of Systems Review Of Systems: Comprehensive ROS is negative, except as noted in HPI. ED EXAM, GI/ABD - Physical Exam Exam: See Below Exam Limited By: No Limitations General Appearance: Alert, WD/WN, No Apparent Distress Respiratory/Chest: No Respiratory Distress, Lungs Clear, Normal Breath Sounds, No Accessory Muscle Use, Chest Non-Tender Cardiovascular: Normal Peripheral Pulses, Regular Rate, Rhythm, No Edema GI/Abdominal Exam: Soft, Tender (generalized, but seems worse on the left abdomen.), Abnormal Bowel Sounds (hypoactive bowel tones x 4 quadrants) Extremities: Normal Inspection, Normal Capillary Refill Neurological: Alert, Oriented, Normal Cognition, No Motor/Sensory Deficits Psychiatric: Normal Affect, Normal Mood Skin Exam: Warm, Dry, Intact, Normal Color, No Rash Course - Vital Signs Last Recorded V/S: Last Vital Signs Temp 98.4 F 05/21/20 15:45 Pulse 94 05/21/20 15:45 Resp 12 05/21/20 15:45 BP 137/72 05/21/20 15:45 Pulse Ox 100 05/21/20 15:45 - Orders/Labs/Meds Orders: Active Orders 24 hr Category Date Time Status Admission Status [Patient Status] [ADT] Routine ADT 05/21/20 18:19 Ordered Gastrointestinal Tube Mgmt [RC] ASDIRECTED Care 05/21/20 18:15 Ordered Notify Provider Consults [RC] ASDIRECTED Care 05/21/20 18:11 Ordered Peripheral IV Care [RC] . DIRECTED Care 05/21/20 15:45 Active Consult to Physician [CONS] Stat Cons 05/21/20 18:10 Ordered Abdomen 1V Upright [CR] Stat Exams 05/21/20 18:15 Ordered Chest 1V Frontal [CR] Stat Exams 05/21/20 18:15 Ordered Sodium Chloride 0.9% [Saline Flush] Med 05/21/20 17:45 Active 10 ml FLUSH ASDIRECTED Sodium Chloride 0.9% [Saline Flush] Med 05/21/20 15:45 Active 10 ml FLUSH ASDIRECTED PRN NG [Nasogastric Orogastric Tube Insertion] [OM.PC] Oth 05/21/20 18:15 Ordered Routine Peripheral IV Insertion Adult [OM.PC] Routine Oth 05/21/20 15:44 Ordered Medication Orders Sodium Chloride (Sodium Chloride 0.9% 10 Ml Syringe) 10 ml FLUSH ASDIRECTED PRN PRN Reason: Keep Vein Open Last Admin: 05/21/20 16:04 Dose: 10 ml Documented by: LEANDRA Sodium Chloride (Sodium Chloride 0.9% 10 Ml Syringe) 10 ml FLUSH ASDIRECTED HIRAL Last Admin: 05/21/20 17:38 Dose: 10 ml Documented by: Meds: Medications Generic Name Dose Route Start Last Admin Trade Name Freq PRN Reason Stop Dose Admin Sodium Chloride 10 ml 05/21/20 15:45 05/21/20 16:04 Sodium Chloride 0.9% 10 Ml Syringe FLUSH 10 ml ASDIRECTED PRN Administration Keep Vein Open Sodium Chloride 10 ml 05/21/20 17:45 05/21/20 17:38 Sodium Chloride 0.9% 10 Ml Syringe FLUSH 10 ml ASDIRECTED HIRAL Administration Discontinued Medications Generic Name Dose Route Start Last Admin Trade Name Freq PRN Reason Stop Dose Admin Diatrizoate Meglum/Diatrizoate Sod 120 ml 05/21/20 17:36 05/21/20 17:37 Diatrizoate Meglumine/Diatrizoate Sodium 37% 120 Ml Bottle PO 05/21/20 17:37 120 ml ONETIME ONE Administration Sodium Chloride 1,000 mls @ 999 mls/hr 05/21/20 15:45 05/21/20 16:04 Normal Saline IV 05/21/20 16:45 999 mls/hr ONETIME ONE Administration Iopamidol 100 ml 05/21/20 17:36 05/21/20 17:38 Iopamidol 612 Mg/Ml 100 Ml Bottle IVPUSH 05/21/20 17:37 100 ml ONETIME ONE Administration Ondansetron HCl 4 mg 05/21/20 15:45 05/21/20 16:04 Ondansetron 4 Mg/2 Ml Sdv IVPUSH 05/21/20 15:46 4 mg ONETIME ONE Administration - Re-Assessments/Exams Free Text/Narrative Re-Assessment/Exam: 05/21/20 16:07 Patient presents to the ED for possible small bowel obstruction. Labs and x- rays reviewed from the clinic visit, the findings from the abdomen x-rays did demonstrate a either early or partial small bowel obstruction, I will have the nurse place an IV, we will do a CT with IV and oral contrast to see if we can identify point of transition, and hopefully get the patient admitted into the hospital for further management. 05/21/20 17:10 Patient's Covid screen done in the clinic is negative for today's purposes. 05/21/20 18:22 CT does demonstrate 2 areas of narrowing within the distal small bowel, difficult to exclude neoplasm, patient was not aware of any sort of narrowing in her GI tract from previous colonoscopies. If this is consistent with partial small bowel obstruction, I did call Dr. Morrow the surgeon on-call and she thinks this would be okay for admission but notes that I should call Dr. Gilliam for medical admit and she can consult, I did call Dr. Gilliam and he tentatively accepted the patient at this time. Departure - Departure Time of Disposition: 18:23 Disposition: Admitted As Inpatient 64 Condition: Good Clinical Impression: Partial small bowel obstruction - Discharge Information Referrals: Ivette Suarez, IMAGING ANALYST [Primary Care Provider] - Forms: ED Department Discharge Sepsis Event Note (ED) - Focused Exam Vital Signs: Vital Signs Temp Pulse Resp BP Pulse Ox 05/21/20 15:45 98.4 F 94 12 137/72 100 - My Orders Last 24 Hours: My Active Orders 05/21/20 15:44 Peripheral IV Insertion Adult [OM.PC] Routine 05/21/20 15:45 Peripheral IV Care [RC] . DIRECTED Sodium Chloride 0.9% [Saline Flush] 10 ml FLUSH ASDIRECTED PRN 05/21/20 17:45 Sodium Chloride 0.9% [Saline Flush] 10 ml FLUSH ASDIRECTED 05/21/20 18:10 Consult to Physician [CONS] Stat 05/21/20 18:11 Notify Provider Consults [RC] ASDIRECTED 05/21/20 18:15 Gastrointestinal Tube Mgmt [RC] ASDIRECTED Abdomen 1V Upright [CR] Stat Chest 1V Frontal [CR] Stat NG [Nasogastric Orogastric Tube Insertion] [OM.PC] Routine 05/21/20 18:19 Admission Status [Patient Status] [ADT] Routine - Assessment/Plan Last 24 Hours: My Active Orders 05/21/20 15:44 Peripheral IV Insertion Adult [OM.PC] Routine 05/21/20 15:45 Peripheral IV Care [RC] . DIRECTED Sodium Chloride 0.9% [Saline Flush] 10 ml FLUSH ASDIRECTED PRN 05/21/20 17:45 Sodium Chloride 0.9% [Saline Flush] 10 ml FLUSH ASDIRECTED 05/21/20 18:10 Consult to Physician [CONS] Stat 05/21/20 18:11 Notify Provider Consults [RC] ASDIRECTED 05/21/20 18:15 Gastrointestinal Tube Mgmt [RC] ASDIRECTED Abdomen 1V Upright [CR] Stat Chest 1V Frontal [CR] Stat NG [Nasogastric Orogastric Tube Insertion] [OM.PC] Routine 05/21/20 18:19 Admission Status [Patient Status] [ADT] Routine
[2020-05-21] MEDS ORDERED: Iopamidol 612 MG/ML 100 ML Bottle IVPUSH ONE (17:36)
[2020-05-21] MEDS ORDERED: Diatrizoate Meglumine/Diatrizoate Sodium 37% 120 ML Bottle PO ONE (17:36)
[2020-05-21] MEDS ORDERED: Sodium Chloride 0.9% 10 ML Syringe FLUSH SCH (17:45)
--- NOTE | 2020-05-21 18:01 | CT ---
CT abdomen and pelvis Technique: Multiple axial sections were obtained from above the dome of the diaphragm inferiorly to the pubic symphysis. Intravenous normal contrast was utilized. Delayed images were also obtained through the pelvis. Reconstructed coronal and sagittal images were obtained. Comparison: Prior CT abdomen and pelvis study of 09/18/19. Findings: Dilated loops of small bowel are noted. 2 focal areas of narrowing are seen within the more distal bowel most likely representing the etiology for the obstruction. Etiology for this narrowing is not determined on the CT scan. Difficult to completely exclude carcinoma. Visualized lung bases show nothing acute. Liver contains no focal abnormality. Minimal ductal dilatation is seen. Gallbladder is not visualized. Spleen appears normal. Adrenal gland showed no nodule. Pancreas is within normal limits. Kidneys show symmetric contrast enhancement. Finding suspicious for nonobstructing stone noted within the right kidney measuring about 9.5 mm. Atherosclerotic calcification is seen within the aorta without aneurysmal dilatation but there is some ectasia. Atherosclerotic calcification continues into the iliac vessels. No retroperitoneal adenopathy is appreciated. No mesenteric abnormalities are appreciated. No pelvic mass or adenopathy is seen. Delayed images show no contrast within the ureters or within the bladder. Bone window settings were reviewed which show scattered degenerative change within the spine. No acute osseous abnormality is appreciated. Impression: 1. Dilated small bowel. Two focal areas of narrowing are seen within the distal small bowel which are nonspecific regarding etiology and difficult to completely exclude neoplasm. 2. Nonobstructing calculus within the lower right kidney. 3. Other findings believed to be incidental as described above. Diagnostic code #9
--- NOTE | 2020-05-21 18:11 | PCM.CONS ---
H&P History of Present Illness - General Date of Service: 05/21/20 Admit Problem/Dx: partial small bowel obstruction Source of Information: Patient, Provider History Limitations: Reports: No Limitations - History of Present Illness Initial Comments - Free Text/Narative: The patient is a 74 y/o lady who presents with abdominal pain and some vomiting last evening. She reports her last bowel movement was around noon today. She was seen and evaluated in clinic and ED with CT scan concerning for bowel obstruction. She denies pain currently. She denies any nausea. She has no previous history of bowel obstructions. - Related Data Allergies/Adverse Reactions: Allergies Allergy/AdvReac Type Severity Reaction Status Date / Time Penicillins Allergy Cannot Verified 05/21/20 15:44 Remember pistachio nut Allergy Cannot Verified 05/21/20 15:44 Remember Home Medications: Home Meds Aspirin 81 mg PO BEDTIME 08/15/15 [History] Calcium Carbonate [Calcium] 1,200 mg PO BID 08/15/15 [History] Cetirizine [ZyrTEC] 10 mg PO DAILY 08/15/15 [History] Cyanocobalamin (Vitamin B-12) [B-12] 1,000 mg PO 1200 08/15/15 [History] Ferrous Sulfate [Iron] 325 mg PO BID 08/15/15 [History] Fish Oil/[place]-3 Fatty Acids [Fish Oil 1,000 MG] 1,000 mg PO TID 08/15/15 [History] Folic Acid 1 tab PO 1200 08/15/15 [History] Furosemide 0 mg PO BID 08/15/15 [History] Potassium Chloride [Klor-Con 10] 10 meq PO TID 08/15/15 [History] chlordiazePOXIDE [Librium] 5 mg PO TID 08/15/15 [History] cloNIDine [Catapres] 0.2 mg PO BEDTIME 08/15/15 [History] metFORMIN HCl [Metformin HCl] 1,000 mg PO BID 08/15/15 [History] Acetaminophen [Tylenol Extra Strength] 500 mg PO ASDIRECTED PRN 05/26/18 [History] Pnv No.121/Iron/Folic Acid [ Multivitamin Tablet] 1 tab PO DAILY 05/26/18 [History] Past Medical History HEENT History: Reports: Hard of Hearing, Impaired Vision Other HEENT History: wears eyeglasses. Cardiovascular History: Reports: Blood Clots/VTE/DVT, High Cholesterol, Hypertension Respiratory History: Reports: Other (See Below) Other Respiratory History: allergies. 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: Musculoskeletal History: Reports: Osteoarthritis, Osteoporosis Neurological History: Reports: Headaches, Chronic Other Neuro History: headaches Psychiatric History: Reports: Anxiety, Depression Endocrine/Metabolic History: Reports: Diabetes, Type II Hematologic History: Reports: Anemia, B12 Deficiency, Iron Deficiency - Infectious Disease History Infectious Disease History: Reports: Measles - Past Surgical History HEENT Surgical History: Reports: None Cardiovascular Surgical History: Reports: None GI Surgical History: Reports: Appendectomy, Cholecystectomy, Colonoscopy Female Surgical History: Reports: None Endocrine Surgical History: Reports: None Social & Family History - Family History Cardiac: Reports: Hypertension, [place] Respiratory: Reports: PE GI: Reports: Inflammatory Bowel Disease : Reports: Renal Calculus Neurological: Reports: CVA, Dementia Endocrine/Metabolic: Reports: Diabetes, type II Hematologic: Reports: Other (See Below) (DVT) Oncologic: Reports: Breast, Leukemia, Liver - Tobacco Use Tobacco Use Status *Q: Never Tobacco User Second Hand Smoke Exposure: No - Caffeine Use Caffeine Use: Reports: Coffee Other Caffeine Use: rare - Recreational Drug Use Recreational Drug Use: No - Living Situation & Occupation Living situation: Reports: Occupation: Retired H&P Review of Systems - Review of Systems: Review Of Systems: See Below General: Denies: Fever HEENT: Reports: No Symptoms Pulmonary: Reports: Cough Cardiovascular: Reports: No Symptoms Gastrointestinal: Reports: Abdominal Pain. Denies: Distension Genitourinary: Reports: No Symptoms Musculoskeletal: Reports: No Symptoms Skin: Reports: No Symptoms Psychiatric: Reports: No Symptoms Neurological: Reports: No Symptoms Hematologic/Lymphatic: Reports: No Symptoms Exam - Exam Exam: See Below - Vital Signs Vital Signs: Last Vital Signs Temp 36.9 C 05/21/20 15:45 Pulse 94 05/21/20 15:45 Resp 12 05/21/20 15:45 BP 137/72 05/21/20 15:45 Pulse Ox 100 05/21/20 15:45 Weight: 59.421 kg - Exam Quality Assessment: No: Supplemental Oxygen General: Alert, Oriented HEENT: Conjunctiva Clear, EOMI, Other (decreased hearing) Neck: Supple Lungs: Normal Respiratory Effort GI/Abdominal Exam: Soft, Distended (with tympany in LUQ), Tender (on left abdomen) Extremities: Normal Inspection, No Pedal Edema Peripheral Pulses: 2+: Dorsalis Pedis (L), Dorsalis Pedis (R) Skin: Warm, Dry, Intact Neurological: Cranial Nerves Intact Neuro Extensive - Mental Status: Normal Mood/Affect Sepsis Event Note - Evaluation Sepsis Screening Result: No Definite Risk - Focused Exam Vital Signs: Vital Signs Temp Pulse Resp BP Pulse Ox 05/21/20 15:45 36.9 C 94 12 137/72 100 *Q Meaningful Use (ADM) - VTE Risk Assess *Q Each Risk Factor Represents 3 Points: Age 75 Years or Greater, Family history of thrombosis Total Score 3 Point Risk Factors: 6 Consult PN Assessment/Plan Procedures: Procedures AQUATIC THERAPY/EXERCISES (12/20/18) ASSAY OF CREATININE (11/12/16) ASSAY OF FERRITIN (06/29/19) ASSAY OF FOLIC ACID SERUM (10/03/15) ASSAY OF IRON (06/29/19) ASSAY OF LIPASE (10/10/16) ASSAY OF TRANSFERRIN (06/29/19) ASSAY THYROID STIM HORMONE (03/19/20) BLOOD CULTURE FOR BACTERIA (10/27/16) BREAST TOMOSYNTHESIS BI (05/07/19) C DIFF AMPLIFIED PROBE (10/05/16) C-REACTIVE PROTEIN (06/29/19) CHEST X-RAY 1 VIEW FRONTAL (08/15/15) COMP SCREEN MAMMOGRAM ADD-ON (04/28/15) COMPLETE CBC AUTOMATED (03/19/20) COMPLETE CBC W/AUTO DIFF WBC (05/26/18) COMPREHEN METABOLIC PANEL (03/19/20) CT ABD & PELV W/CONTRAST (09/18/19) EMERGENCY DEPT VISIT (05/26/18) EMERGENCY DEPT VISIT (10/10/16) EMERGENCY DEPT VISIT (08/15/15) EXTREMITY STUDY (11/01/18) GLYCOSYLATED HEMOGLOBIN TEST (03/19/20) HYDRATE IV INFUSION ADD-ON (05/26/18) HYDRATION IV INFUSION INIT (08/15/15) LEUKOCYTE ASSESSMENT FECAL (10/05/16) LIPID PANEL (03/19/20) MANUAL THERAPY 1/> REGIONS (04/17/19) MASSAGE THERAPY (11/22/18) MEASURE BLOOD OXYGEN LEVEL (10/10/16) MECHANICAL TRACTION THERAPY (08/24/18) METABOLIC PANEL TOTAL CA (11/03/16) MICROBE SUSCEPTIBLE MONTSERRAT (03/16/17) MRI LUMBAR SPINE W/O DYE (06/15/18) NEUROMUSCULAR REEDUCATION (12/29/18) OFFICE O/P EST LOW 20-29 MIN (06/14/18) OFFICE O/P EST MOD 30-39 MIN (08/20/16) OT EVAL LOW COMPLEX 30 MIN (10/10/16) PROTHROMBIN TIME (11/07/18) PT EVAL LOW COMPLEX 20 MIN (04/17/19) PT EVAL MOD COMPLEX 30 MIN (11/22/18) RBC SED RATE AUTOMATED (06/19/18) ROUTINE VENIPUNCTURE (03/19/20) SCR MAMMO BI INCL CAD (05/07/19) SHIGA-LIKE TOXIN AG IA (10/05/16) STOOL CULTR AEROBIC BACT EA (10/05/16) THER/PROPH/DIAG INJ IV PUSH (05/26/18) THERAPEUTIC ACTIVITIES (12/20/18) THERAPEUTIC EXERCISES (04/17/19) THROMBOPLASTIN TIME PARTIAL (11/07/18) TX/PRO/DX INJ NEW DRUG ADDON (10/10/16) UR ALBUMIN SEMIQUANTITATIVE (03/19/20) URINALYSIS AUTO W/O SCOPE (11/06/14) URINALYSIS AUTO W/SCOPE (03/03/18) URINE BACTERIA CULTURE (03/16/17) URINE CULTURE/COLONY COUNT (03/16/17) VITAMIN B-12 (10/03/15) X-RAY EXAM ABDOMEN 1 VIEW (05/26/18) X-RAY EXAM L-S SPINE 2/3 VWS (06/14/18) X-RAY EXAM OF ABDOMEN (10/10/16) X-RAY EXAM OF ABDOMEN (12/24/14) X-RAY EXAM OF ANKLE (06/22/17) X-RAY EXAM RIBS UNI 2 VIEWS (08/15/15) (1) Abdominal pain SNOMED Code(s): 69093585 Code(s): R10.9 - UNSPECIFIED ABDOMINAL PAIN Priority: High Current Visit: No Qualifiers: Abdominal location: generalized Qualified Code(s): R10.84 - Generalized abdominal pain (2) Partial small bowel obstruction SNOMED Code(s): 674441264 Code(s): K56.600 - PARTIAL INTESTINAL OBSTRUCTION, UNSPECIFIED TO CAUSE Current Visit: No Problem List Initiated/Reviewed/Updated: Yes Plan: 74 y/o lady with partial small bowel obstruction, unclear if this is 2/2 Crohn's vs. previous stricturing, or new process - plan for NPO with NGT decompression - IVF resuscitation - trend for fever or leukocytosis - please notify if abdominal exam changes - pt may take home medications PO and clamp NGT when needed. - may ambulate with NGT clamped, but put to suction when in bed will follow Waleska Mendez MD General surgery
[2020-05-21] MEDS ORDERED: Acetaminophen 325 MG Tab PO PRN (19:07)
[2020-05-21] MEDS ORDERED: Morphine 2 MG/ML SYRINGE IVPUSH PRN (19:07)
[2020-05-21] MEDS ORDERED: Ondansetron 4 MG/2 ML SDV IV PRN (19:07)
[2020-05-21] MEDS ORDERED: Albuterol/Ipratropium 3.0-0.5 MG/3 ML Neb Soln NEB PRN (19:07)
[2020-05-21] MEDS ORDERED: Sodium Chloride 0.9% 1,000 ML IV SCH (19:15)
[2020-05-21] MEDS ORDERED: hydrALAZINE 20 MG/ML SDV IVPUSH PRN (19:20)
[2020-05-21] MEDS ORDERED: traMADol 50 MG Tab PO PRN (19:20)
[2020-05-21] MEDS ORDERED: Ondansetron 4 MG in Sodium Chloride 0.9% 50 ML IV PRN (19:24)
--- NOTE | 2020-05-21 19:36 | PCM.HP.2 ---
H&P History of Present Illness - General Date of Service: 05/21/20 Admit Problem/Dx: partial small bowel obstruction Source of Information: Patient - History of Present Illness Initial Comments - Free Text/Narative: Pt is a 74 yof with a hx of Crohns disease and s/p of appendectomy and cholecystectomy who was sent to the ER due to possible small bowel obstruction. Pt was seen in the clinic this morning for cold-like symptoms including cough. She also complains of abdominal pain especially to the left side associated with nausea and vomiting. She had BM x 1 last night and has not passed gas since yesterday. She has a hx of Crohns disease and underwent appendectomy and cholecystectomy. She had a colonoscopy which did not show any stenosis. In the ER, CT abd showed partial SBO and neoplasm can not be excluded. SG DR. Morrow was consulted, who suggested to admit the pt. - Related Data Allergies/Adverse Reactions: Allergies Allergy/AdvReac Type Severity Reaction Status Date / Time Penicillins Allergy Cannot Verified 05/21/20 15:44 Remember pistachio nut Allergy Cannot Verified 05/21/20 15:44 Remember Home Medications: Home Meds Aspirin 81 mg PO BEDTIME 08/15/15 [History] Calcium Carbonate [Calcium] 1,200 mg PO BID 08/15/15 [History] Cetirizine [ZyrTEC] 10 mg PO DAILY 08/15/15 [History] Cyanocobalamin (Vitamin B-12) [B-12] 1,000 mg PO 1200 08/15/15 [History] Ferrous Sulfate [Iron] 325 mg PO BID 08/15/15 [History] Fish Oil/[place]-3 Fatty Acids [Fish Oil 1,000 MG] 1,000 mg PO TID 08/15/15 [History] Folic Acid 1 tab PO 1200 08/15/15 [History] Furosemide 0 mg PO BID 08/15/15 [History] Potassium Chloride [Klor-Con 10] 10 meq PO TID 08/15/15 [History] chlordiazePOXIDE [Librium] 5 mg PO TID 08/15/15 [History] cloNIDine [Catapres] 0.2 mg PO BEDTIME 08/15/15 [History] metFORMIN HCl [Metformin HCl] 1,000 mg PO BID 08/15/15 [History] Acetaminophen [Tylenol Extra Strength] 500 mg PO ASDIRECTED PRN 05/26/18 [History] Pnv No.121/Iron/Folic Acid [ Multivitamin Tablet] 1 tab PO DAILY 05/26/18 [History] Past Medical History HEENT History: Reports: Hard of Hearing, Impaired Vision Other HEENT History: wears eyeglasses. Cardiovascular History: Reports: Blood Clots/VTE/DVT, High Cholesterol, Hypertension Respiratory History: Reports: Other (See Below) Other Respiratory History: allergies. Gastrointestinal History: Reports: Other (See Below) Other Gastrointestinal History: chrohns Genitourinary History: Reports: Renal Calculus, UTI, Recurrent PATTERN FINISHER History: Reports: Musculoskeletal History: Reports: Osteoarthritis, Osteoporosis Neurological History: Reports: Headaches, Chronic Other Neuro History: headaches Psychiatric History: Reports: Anxiety, Depression Endocrine/Metabolic History: Reports: Diabetes, Type II Hematologic History: Reports: Anemia, B12 Deficiency, Iron Deficiency - Infectious Disease History Infectious Disease History: Reports: Measles - Past Surgical History HEENT Surgical History: Reports: None Cardiovascular Surgical History: Reports: None GI Surgical History: Reports: Appendectomy, Cholecystectomy, Colonoscopy Female Surgical History: Reports: None Endocrine Surgical History: Reports: None Social & Family History - Family History Family Medical History: No Pertinent Family History (Denies genetic diseases in family) Cardiac: Reports: Hypertension, [place] Respiratory: Reports: PE GI: Reports: Inflammatory Bowel Disease : Reports: Renal Calculus Neurological: Reports: CVA, Dementia Endocrine/Metabolic: Reports: Diabetes, type II Hematologic: Reports: Other (See Below) (DVT) Oncologic: Reports: Breast, Leukemia, Liver - Tobacco Use Tobacco Use Status *Q: Never Tobacco User Second Hand Smoke Exposure: No - Caffeine Use Caffeine Use: Reports: Coffee Other Caffeine Use: rare - Recreational Drug Use Recreational Drug Use: No - Living Situation & Occupation Living situation: Reports: Occupation: Retired H&P Review of Systems - Review of Systems: Review Of Systems: See Below General: Reports: Malaise HEENT: Reports: No Symptoms Pulmonary: Reports: Cough Cardiovascular: Reports: No Symptoms Gastrointestinal: Reports: Abdominal Pain, Nausea, Vomiting Musculoskeletal: Reports: No Symptoms Skin: Reports: No Symptoms Psychiatric: Reports: No Symptoms Neurological: Reports: No Symptoms Hematologic/Lymphatic: Reports: No Symptoms Immunologic: Reports: No Symptoms Exam - Exam Exam: See Below - Vital Signs Vital Signs: Last Vital Signs Temp 36.9 C 03/24/21 15:45 Pulse 94 05/21/20 15:45 Resp 12 05/21/20 15:45 BP 137/72 05/21/20 15:45 Pulse Ox 100 05/21/20 15:45 Weight: 59.421 kg - Exam General: Alert, Oriented, Cooperative, Mild Distress (due to abdominal pain) HEENT: Conjunctiva Clear, EOMI, Pupils Equal, Pupils Reactive, PERRLA Neck: Supple, Trachea Midline, Full Range of Motion Lungs: Clear to Auscultation, Normal Respiratory Effort GI/Abdominal Exam: Soft, No Organomegaly, Tender, Abnormal Bowel Sounds Extremities: Normal Range of Motion, Non-Tender, No Pedal Edema Skin: Warm, Dry, Intact Neurological: Reflexes Equal Bilateral, Strength Equal Bilateral, Normal Speech, Normal Tone, Sensation Intact Neuro Extensive - Mental Status: Alert, Oriented x3, Normal Mood/Affect Neuro Extensive - Motor, Sensory, Reflexes: CN II-XII Intact, Normal Reflexes Psychiatric: Alert, Normal Affect, Normal Mood - Patient Data Result Diagrams: 05/22/20 04:54 05/22/20 04:54 Sepsis Event Note - Evaluation Sepsis Screening Result: No Definite Risk - Focused Exam Vital Signs: Vital Signs Temp Pulse Resp BP Pulse Ox 05/21/20 15:45 36.9 C 94 12 137/72 100 Problem List Initiated/Reviewed/Updated: Yes Orders Last 24hrs: Active Orders 24 hr Category Date Time Status Admission Status [Patient Status] [ADT] Routine ADT 05/21/20 18:19 Active Bedrest Bedside Commode [RC] ASDIRECTED Care 05/21/20 19:07 Active EKG Documentation Completion [RC] ROUTINE Care 05/21/20 19:17 Active Gastrointestinal Tube Mgmt [RC] ASDIRECTED Care 05/21/20 18:15 Active Height and Weight [RC] DAILY Care 05/21/20 19:07 Active Intake and Output [RC] QSHIFT Care 05/21/20 19:08 Active Notify Provider Consults [RC] ASDIRECTED Care 05/21/20 18:11 Active Oxygen Therapy [RC] PRN Care 05/21/20 19:07 Active Peripheral IV Care [RC] . DIRECTED Care 05/21/20 15:45 Active RT Aerosol Therapy [RC] ASDIRECTED Care 05/21/20 19:17 Active VTE/DVT Education [RC] PER UNIT ROUTINE Care 05/21/20 19:07 Active Vital Signs [RC] Q4H Care 05/21/20 19:07 Active Consult to Physician [CONS] Stat Cons 05/21/20 18:10 Active OT Evaluation and Treatment [CONS] Routine Cons 05/21/20 19:17 Active PT Evaluation and Treatment [CONS] Routine Cons 05/21/20 19:17 Active Nothing per Oral Now Diet [DIET] Diet 05/21/20 Dinner Active Abdomen 1V Upright [CR] Stat Exams 05/21/20 18:15 Taken Chest 1V Frontal [CR] Stat Exams 05/21/20 18:15 Taken CBC WITH AUTO DIFF [HEME] DAILY Lab 05/22/20 05:00 Ordered CBC WITH AUTO DIFF [HEME] DAILY Lab 05/23/20 05:00 Ordered CBC WITH AUTO DIFF [HEME] DAILY Lab 05/24/20 05:00 Ordered CBC WITH AUTO DIFF [HEME] DAILY Lab 05/25/20 05:00 Ordered CBC WITH AUTO DIFF [HEME] DAILY Lab 05/26/20 05:00 Ordered CBC WITH AUTO DIFF [HEME] DAILY Lab 05/27/20 05:00 Ordered COMPREHENSIVE METABOLIC PN,CMP [CHEM] DAILY Lab 05/22/20 05:00 Ordered COMPREHENSIVE METABOLIC PN,CMP [CHEM] DAILY Lab 05/23/20 05:00 Ordered COMPREHENSIVE METABOLIC PN,CMP [CHEM] DAILY Lab 05/24/20 05:00 Ordered COMPREHENSIVE METABOLIC PN,CMP [CHEM] DAILY Lab 05/25/20 05:00 Ordered COMPREHENSIVE METABOLIC PN,CMP [CHEM] DAILY Lab 05/26/20 05:00 Ordered COMPREHENSIVE METABOLIC PN,CMP [CHEM] DAILY Lab 05/27/20 05:00 Ordered INR,PT,PROTHROMBIN TIME [COAG] Routine Lab 05/21/20 19:17 Ordered MAGNESIUM [CHEM] Routine Lab 05/21/20 19:17 Ordered PHOSPHORUS [CHEM] Routine Lab 05/21/20 19:17 Ordered TROPONIN I [CHEM] Q6H Lab 05/21/20 19:17 Ordered TROPONIN I [CHEM] Q6H Lab 05/22/20 01:17 Ordered Acetaminophen [TylenoL] Med 05/21/20 19:07 Active 650 mg PO Q6H PRN Albuterol/Ipratropium [DuoNeb 3.0-0.5 MG/3 ML] Med 05/21/20 19:07 Active 3 ml NEB Q4H PRN Aspirin [Halfprin] Med 05/21/20 21:00 Active 81 mg PO BEDTIME Calcium Carbonate Med 05/21/20 21:00 Active 1,200 mg PO BID Cyanocobalamin (Vitamin B12) [Vitamin B12] Med 05/22/20 12:00 Active 1,000 mcg PO DAILY@1200 Heparin Sodium Med 05/21/20 22:00 Active 5,000 units SUBCUT Q8H Insulin Lispro [HumaLOG] Med 05/21/20 22:00 Active See Protocol SUBCUT QIDACANDBED Morphine Med 05/21/20 19:07 Active 2 mg IVPUSH Q4H PRN Ondansetron [Zofran] 4 mg Med 05/21/20 19:24 Active Sodium Chloride 0.9% [Normal Saline] 50 ml IV Q6H Sodium Chloride 0.9% [Normal Saline] 1,000 ml Med 05/21/20 19:15 Active IV ASDIRECTED Sodium Chloride 0.9% [Saline Flush] Med 05/21/20 17:45 Active 10 ml FLUSH ASDIRECTED Sodium Chloride 0.9% [Saline Flush] Med 05/21/20 15:45 Active 10 ml FLUSH ASDIRECTED PRN cloNIDine [Catapres] Med 05/21/20 21:00 Active 0.2 mg PO BEDTIME hydrALAZINE [Apresoline] Med 05/21/20 19:20 Active 10 mg IVPUSH Q4H PRN traMADol [Ultram] Med 05/21/20 19:20 Active 50 mg PO Q4H PRN NG [Nasogastric Orogastric Tube Insertion] [OM.PC] Oth 05/21/20 18:15 Ordered Routine Peripheral IV Insertion Adult [OM.PC] Routine Oth 05/21/20 15:44 Ordered Medication Orders Acetaminophen (Acetaminophen 325 Mg Tab) 650 mg PO Q6H PRN PRN Reason: Pain (Mild 1-3)/fever Albuterol/Ipratropium (Albuterol/Ipratropium 3.0-0.5 Mg/3 Ml Neb Soln) 3 ml NEB Q4H PRN PRN Reason: Shortness Of Breath/wheezing Aspirin (Aspirin 81 Mg Tab.Ec) 81 mg PO BEDTIME HIRAL Calcium Carbonate/Glycine (Calcium Carbonate 600 Mg Tab) 1,200 mg PO BID [facility] Clonidine HCl (Clonidine 0.1 Mg Tab) 0.2 mg PO BEDTIME [facility] Cyanocobalamin (Cyanocobalamin (Vitamin B12) 1,000 Mcg Tab) 1,000 mcg PO DAILY@1200 HIRAL Heparin Sodium (Porcine) (Heparin Sodium 5,000 Units/Ml Vial) 5,000 units SUBCUT Q8H HIRAL Hydralazine HCl (Hydralazine 20 Mg/Ml Sdv) 10 mg IVPUSH Q4H PRN PRN Reason: Hypertension Sodium Chloride (Normal Saline) 1,000 mls @ 65 mls/hr IV ASDIRECTED [facility] Ondansetron HCl 4 mg/ Sodium (Chloride) 52 mls @ 100 mls/hr IV Q6H PRN PRN Reason: Nausea/Vomiting Insulin Human Lispro (Insulin Lispro 100 Unit/Ml) 0 unit SUBCUT QIDACANDBED [facility]; Protocol Morphine Sulfate (Morphine 2 Mg/Ml Syringe) 2 mg IVPUSH Q4H PRN PRN Reason: Pain (severe 7-10) Stop: 05/22/20 19:09 Sodium Chloride (Sodium Chloride 0.9% 10 Ml Syringe) 10 ml FLUSH ASDIRECTED PRN PRN Reason: Keep Vein Open Last Admin: 05/21/20 16:04 Dose: 10 ml Documented by: LEANDRA Sodium Chloride (Sodium Chloride 0.9% 10 Ml Syringe) 10 ml FLUSH ASDIRECTED [facility] Last Admin: 05/21/20 17:38 Dose: 10 ml Documented by: BUSCGRE Tramadol HCl (Tramadol 50 Mg Tab) 50 mg PO Q4H PRN PRN Reason: Pain (moderate 4-6) Assessment/Plan Comment:: Pt is a 74 yof with a hx of Crohns disease and s/p of appendectomy and cholecys tectomy who was sent to the ER due to possible small bowel obstruction. Assessment and plan: 1. Early or partial small bowel obstruction 2. Hx of Crohn's disease of small intestine CT abd - dilated small bowel. Two of focal areas of narrowing are seen within the distal small bowel which are nonspecific regarding etiology and difficult to completely exclude neoplasm. s/p appendectomy and cholecystectomy Had a colonoscopy in the past but she does not know any sort of narrowing in her GI tract from previous colonoscopies Dr. Addom was consulted in the ER. Really appreciate it NGT sucntion NPO IVF pain management 3. DM type 2 Metformin is on hold Insulin ss 4. Anemia Etology unknown. But she is on ferrous sulfate and Vit B 12 repeat CBC in am 5. Nephrolithiasis CT abd - nonobstructing calculus within the lower right kidney. f/u with pcp and urology 6. Cold-like symtoms CXR - Covid 19 test pending influenza A and B pending 7. DVT prophylaxis: heparin - Mortality Measure Prognosis:: Good
[2020-05-21] MEDS: Heparin Sodium 5,000 Units/ML Vial SUBCUT SCH (22:02)
[2020-05-21] MEDS: cloNIDine 0.1 MG Tab PO SCH (22:40)
[2020-05-21] MEDS: Calcium Carbonate 600 MG Tab PO SCH (22:40)
[2020-05-21] MEDS: Aspirin 81 MG Tab.EC PO SCH (22:41)
[2020-05-22] MEDS: Heparin Sodium 5,000 Units/ML Vial SUBCUT SCH ×3 (06:27→21:54)
[2020-05-22] MEDS ORDERED: Ondansetron 4 MG/2 ML SDV IVPUSH PRN (07:03)
--- NOTE | 2020-05-22 08:02 | CR ---
Abdomen: Upright view of the abdomen was obtained. Comparison: Prior abdominal x-ray of 05/21/[address] abdomen and pelvis exam also performed on 05/21/20. Scattered areas of small bowel are noted showing multiple air-fluid levels. Number of small bowel loops has increased from prior exam. There is some contrast within the stomach being seen. No free air is identified. Bony structures are unremarkable. Some opacification of the renal ureters and collecting system are also noted. Impression: 1. Increasing number of small bowel loops showing air-fluid levels compatible with distal small bowel obstruction. 2. Contrast within the stomach and within the urinary system from prior CT exam. Diagnostic code #3
[2020-05-22] MEDS ORDERED: NS + KCl 20mEq/L 1,000 ML IV SCH (08:15)
[2020-05-22] MEDS: Calcium Carbonate 600 MG Tab PO SCH ×2 (08:52→21:53)
--- NOTE | 2020-05-22 09:00 | CR ---
Chest: PA view of the chest was obtained. Comparison: Prior chest x-ray of 05/18/20. Heart size and mediastinum are normal. Lungs are clear with no acute parenchymal change. No acute osseous finding is seen. Impression: 1. Nothing acute is appreciated on PA chest x-ray. Diagnostic code #1
[2020-05-22] MEDS: Cyanocobalamin (Vitamin B12) 1,000 MCG Tab PO SCH (11:39)
--- NOTE | 2020-05-22 12:43 | PCM.PN ---
- General Info Date of Service: 05/22/20 Admission Dx/Problem (Free Text): partial small bowel obstruction Subjective Update: Pt is a 74 yof with a hx of Crohns disease and s/p of appendectomy and cholecystectomy who was sent to the ER due to possible small bowel obstruction. Patient feels fine today. Denies abdominal pain, nausea, or vomiting. Vital signs are stable She was on 2 L last night. She is now on room air with good oxygen saturation Hemoglobin 10.5, potassium 3.4, sodium 142, AST 43, ALT 6 8, alkaline phos 142 Troponin negative x2 Influenza negative - Review of Systems Systems Review Comment:: General: Reports: Malaise HEENT: Reports: No Symptoms Pulmonary: Reports: Cough Cardiovascular: Reports: No Symptoms Gastrointestinal: Reports: Abdominal Pain, Nausea, Vomiting (resolved) Musculoskeletal: Reports: No Symptoms Skin: Reports: No Symptoms Psychiatric: Reports: No Symptoms Neurological: Reports: No Symptoms Hematologic/Lymphatic: Reports: No Symptoms Immunologic: Reports: No Symptoms - Patient Data Vitals - Most Recent: Last Vital Signs Temp 36.6 C 05/22/20 11:33 Pulse 84 05/22/20 11:33 Resp 18 05/22/20 11:33 BP 115/55 L 05/22/20 11:33 Pulse Ox 97 05/22/20 11:33 Weight - Most Recent: 58.332 kg I&O - Last 24 Hours: Intake & Output 05/21/20 05/22/20 05/22/20 22:59 06:59 14:59 Intake Total 415 Output Total 400 Balance 15 Lab Results Last 24 Hours: Laboratory Results - last 24 hr 05/21/20 05/21/20 05/21/20 Range/Units 14:33 19:33 19:33 WBC (3.98-10.04) K/mm3 RBC (3.98-5.22) M/mm3 Hgb (11.2-15.7) gm/dl Hct (34.1-44.9) % MCV (79.4-94.8) fl MCH (25.6-32.2) pg MCHC (32.2-35.5) g/dl RDW Std Deviation (36.4-46.3) fL Plt Count (182-369) K/mm3 MPV (9.4-12.3) fl Neut % (Auto) (34.0-71.1) % Lymph % (Auto) (19.3-51.7) % Crowley % (Auto) (4.7-12.5) % Eos % (Auto) (0.7-5.8) Baso % (Auto) (0.1-1.2) % Neut # (Auto) (1.56-6.13) K/mm3 Lymph # (Auto) (1.18-3.74) K/mm3 Crowley # (Auto) (0.24-0.36) K/mm3 Eos # (Auto) (0.04-0.36) K/mm3 Baso # (Auto) (0.01-0.08) K/mm3 PT 12.3 H (9.7-12.0) SECONDS INR 1.15 Sodium (136-145) mEq/L Potassium (3.5-5.1) mEq/L Chloride (98-107) mEq/L Carbon Dioxide (21-32) mEq/L Anion Gap (5-15) BUN (7-18) mg/dL Creatinine (0.55-1.02) mg/dL Est Cr Clr Drug Dosing mL/min Estimated GFR (MDRD) (>60) mL/min BUN/Creatinine Ratio (14-18) Glucose (83-115) mg/dL POC Glucose (83-110) mg/dL Calcium (8.5-10.1) mg/dL Phosphorus 3.2 (2.6-4.7) mg/dL Magnesium 1.4 L (1.8-2.4) mg/dl Total Bilirubin (0.2-1.0) mg/dL AST (15-37) U/L ALT (14-59) U/L Alkaline Phosphatase (46-116) U/L Troponin I < 0.017 (0.00-0.056) ng/mL Total Protein (6.4-8.2) g/dl Albumin (3.4-5.0) g/dl Globulin gm/dL Albumin/Globulin Ratio (1-2) Influenza Type A RNA Negative (NEGATIVE) Influenza Type B RNA Negative (NEGATIVE) 05/21/20 05/22/20 05/22/20 Range/Units 20:33 00:49 01:18 WBC (3.98-10.04) K/mm3 RBC (3.98-5.22) M/mm3 Hgb (11.2-15.7) gm/dl Hct (34.1-44.9) % MCV (79.4-94.8) fl MCH (25.6-32.2) pg MCHC (32.2-35.5) g/dl RDW Std Deviation (36.4-46.3) fL Plt Count (182-369) K/mm3 MPV (9.4-12.3) fl Neut % (Auto) (34.0-71.1) % Lymph % (Auto) (19.3-51.7) % Crowley % (Auto) (4.7-12.5) % Eos % (Auto) (0.7-5.8) Baso % (Auto) (0.1-1.2) % Neut # (Auto) (1.56-6.13) K/mm3 Lymph # (Auto) (1.18-3.74) K/mm3 Crowley # (Auto) (0.24-0.36) K/mm3 Eos # (Auto) (0.04-0.36) K/mm3 Baso # (Auto) (0.01-0.08) K/mm3 PT (9.7-12.0) SECONDS INR Sodium (136-145) mEq/L Potassium (3.5-5.1) mEq/L Chloride (98-107) mEq/L Carbon Dioxide (21-32) mEq/L Anion Gap (5-15) BUN (7-18) mg/dL Creatinine (0.55-1.02) mg/dL Est Cr Clr Drug Dosing mL/min Estimated GFR (MDRD) (>60) mL/min BUN/Creatinine Ratio (14-18) Glucose (83-115) mg/dL POC Glucose 116 H 115 H (83-110) mg/dL Calcium (8.5-10.1) mg/dL Phosphorus (2.6-4.7) mg/dL Magnesium (1.8-2.4) mg/dl Total Bilirubin (0.2-1.0) mg/dL AST (15-37) U/L ALT (14-59) U/L Alkaline Phosphatase (46-116) U/L Troponin I < 0.017 (0.00-0.056) ng/mL Total Protein (6.4-8.2) g/dl Albumin (3.4-5.0) g/dl Globulin gm/dL Albumin/Globulin Ratio (1-2) Influenza Type A RNA (NEGATIVE) Influenza Type B RNA (NEGATIVE) 05/22/20 05/22/20 05/22/20 Range/Units 04:54 04:54 06:27 WBC 9.31 (3.98-10.04) K/mm3 RBC 4.00 (3.98-5.22) M/mm3 Hgb 10.5 L D (11.2-15.7) gm/dl Hct 34.4 (34.1-44.9) % MCV 86.0 (79.4-94.8) fl MCH 26.3 (25.6-32.2) pg MCHC 30.5 L (32.2-35.5) g/dl RDW Std Deviation 48.2 H (36.4-46.3) fL Plt Count 451 H D (182-369) K/mm3 MPV 8.7 L (9.4-12.3) fl Neut % (Auto) 61.1 (34.0-71.1) % Lymph % (Auto) 22.8 (19.3-51.7) % Crowley % (Auto) 14.2 H (4.7-12.5) % Eos % (Auto) 1.5 (0.7-5.8) Baso % (Auto) 0.2 (0.1-1.2) % Neut # (Auto) 5.69 (1.56-6.13) K/mm3 Lymph # (Auto) 2.12 (1.18-3.74) K/mm3 Crowley # (Auto) 1.32 H (0.24-0.36) K/mm3 Eos # (Auto) 0.14 (0.04-0.36) K/mm3 Baso # (Auto) 0.02 (0.01-0.08) K/mm3 PT (9.7-12.0) SECONDS INR Sodium 142 (136-145) mEq/L Potassium 3.4 L (3.5-5.1) mEq/L Chloride 103 (98-107) mEq/L Carbon Dioxide 28 (21-32) mEq/L Anion Gap 14.4 (5-15) BUN 10 (7-18) mg/dL Creatinine 0.7 (0.55-1.02) mg/dL Est Cr Clr Drug Dosing 49.11 mL/min Estimated GFR (MDRD) > 60 (>60) mL/min BUN/Creatinine Ratio 14.3 (14-18) Glucose 124 H (83-115) mg/dL POC Glucose 107 (83-110) mg/dL Calcium 8.8 D (8.5-10.1) mg/dL Phosphorus (2.6-4.7) mg/dL Magnesium (1.8-2.4) mg/dl Total Bilirubin 0.3 (0.2-1.0) mg/dL AST 43 H (15-37) U/L ALT 68 H (14-59) U/L Alkaline Phosphatase 142 H (46-116) U/L Troponin I (0.00-0.056) ng/mL Total Protein 7.0 (6.4-8.2) g/dl Albumin 2.3 L (3.4-5.0) g/dl Globulin 4.7 gm/dL Albumin/Globulin Ratio 0.5 L (1-2) Influenza Type A RNA (NEGATIVE) Influenza Type B RNA (NEGATIVE) 05/22/20 Range/Units 11:29 WBC (3.98-10.04) K/mm3 RBC (3.98-5.22) M/mm3 Hgb (11.2-15.7) gm/dl Hct (34.1-44.9) % MCV (79.4-94.8) fl MCH (25.6-32.2) pg MCHC (32.2-35.5) g/dl RDW Std Deviation (36.4-46.3) fL Plt Count (182-369) K/mm3 MPV (9.4-12.3) fl Neut % (Auto) (34.0-71.1) % Lymph % (Auto) (19.3-51.7) % Crowley % (Auto) (4.7-12.5) % Eos % (Auto) (0.7-5.8) Baso % (Auto) (0.1-1.2) % Neut # (Auto) (1.56-6.13) K/mm3 Lymph # (Auto) (1.18-3.74) K/mm3 Crowley # (Auto) (0.24-0.36) K/mm3 Eos # (Auto) (0.04-0.36) K/mm3 Baso # (Auto) (0.01-0.08) K/mm3 PT (9.7-12.0) SECONDS INR Sodium (136-145) mEq/L Potassium (3.5-5.1) mEq/L Chloride (98-107) mEq/L Carbon Dioxide (21-32) mEq/L Anion Gap (5-15) BUN (7-18) mg/dL Creatinine (0.55-1.02) mg/dL Est Cr Clr Drug Dosing mL/min Estimated GFR (MDRD) (>60) mL/min BUN/Creatinine Ratio (14-18) Glucose (83-115) mg/dL POC Glucose 127 H (83-110) mg/dL Calcium (8.5-10.1) mg/dL Phosphorus (2.6-4.7) mg/dL Magnesium (1.8-2.4) mg/dl Total Bilirubin (0.2-1.0) mg/dL AST (15-37) U/L ALT (14-59) U/L Alkaline Phosphatase (46-116) U/L Troponin I (0.00-0.056) ng/mL Total Protein (6.4-8.2) g/dl Albumin (3.4-5.0) g/dl Globulin gm/dL Albumin/Globulin Ratio (1-2) Influenza Type A RNA (NEGATIVE) Influenza Type B RNA (NEGATIVE) Med Orders - Current: Current Medications Acetaminophen (Acetaminophen 325 Mg Tab) 650 mg PO Q6H PRN PRN Reason: Pain (Mild 1-3)/fever Last Admin: 05/22/20 11:38 Dose: 650 mg Documented by: Albuterol/Ipratropium (Albuterol/Ipratropium 3.0-0.5 Mg/3 Ml Neb Soln) 3 ml NEB Q4H PRN PRN Reason: Shortness Of Breath/wheezing Aspirin (Aspirin 81 Mg Tab.Ec) 81 mg PO BEDTIME [facility] Last Admin: 05/21/20 22:41 Dose: Not Given Documented by: Calcium Carbonate/Glycine (Calcium Carbonate 600 Mg Tab) 1,200 mg PO BID [facility] Last Admin: 05/22/20 08:52 Dose: 1,200 mg Documented by: Clonidine HCl (Clonidine 0.1 Mg Tab) 0.2 mg PO BEDTIME [facility] Last Admin: 05/21/20 22:40 Dose: Not Given Documented by: Cyanocobalamin (Cyanocobalamin (Vitamin B12) 1,000 Mcg Tab) 1,000 mcg PO DAILY@1200 [facility] Last Admin: 05/22/20 11:39 Dose: 1,000 mcg Documented by: Heparin Sodium (Porcine) (Heparin Sodium 5,000 Units/Ml Vial) 5,000 units SUBCUT Q8H [facility] Last Admin: 05/22/20 06:27 Dose: 5,000 units Documented by: Hydralazine HCl (Hydralazine 20 Mg/Ml Sdv) 10 mg IVPUSH Q4H PRN PRN Reason: Hypertension Potassium Chloride/Sodium Chloride (Normal Saline With 20 Meq Kcl) 1,000 mls @ 65 mls/hr IV ASDIRECTED [facility] Last Admin: 05/22/20 08:52 Dose: 65 mls/hr Documented by: Insulin Human Lispro (Insulin Lispro 100 Unit/Ml) 0 unit SUBCUT QIDACANDBED [facility]; Protocol Last Admin: 05/22/20 11:39 Dose: Not Given Documented by: Morphine Sulfate (Morphine 2 Mg/Ml Syringe) 2 mg IVPUSH Q4H PRN PRN Reason: Pain (severe 7-10) Stop: 05/22/20 19:09 Ondansetron HCl (Ondansetron 4 Mg/2 Ml Sdv) 4 mg IVPUSH Q6H PRN PRN Reason: Nausea/Vomiting Sodium Chloride (Sodium Chloride 0.9% 10 Ml Syringe) 10 ml FLUSH ASDIRECTED PRN PRN Reason: Keep Vein Open Last Admin: 05/21/20 16:04 Dose: 10 ml Documented by: Tramadol HCl (Tramadol 50 Mg Tab) 50 mg PO Q4H PRN PRN Reason: Pain (moderate 4-6) Discontinued Medications Diatrizoate Meglum/Diatrizoate Sod (Diatrizoate Meglumine/Diatrizoate Sodium 37% 120 Ml Bottle) 120 ml PO ONETIME ONE Stop: 05/21/20 17:37 Last Admin: 05/21/20 17:37 Dose: 120 ml Documented by: Sodium Chloride (Normal Saline) 1,000 mls @ 999 mls/hr IV ONETIME ONE Stop: 05/21/20 16:45 Last Admin: 05/21/20 16:04 Dose: 999 mls/hr Documented by: Sodium Chloride (Normal Saline) 1,000 mls @ 65 mls/hr IV ASDIRECTED [facility] Last Admin: 05/21/20 21:29 Dose: 65 mls/hr Documented by: Ondansetron HCl 4 mg/ Sodium (Chloride) 52 mls @ 100 mls/hr IV Q6H PRN PRN Reason: Nausea/Vomiting Iopamidol (Iopamidol 612 Mg/Ml 100 Ml Bottle) 100 ml IVPUSH ONETIME ONE Stop: 05/21/20 17:37 Last Admin: 05/21/20 17:38 Dose: 100 ml Documented by: Ondansetron HCl (Ondansetron 4 Mg/2 Ml Sdv) 4 mg IVPUSH ONETIME ONE Stop: 05/21/20 15:46 Last Admin: 05/21/20 16:04 Dose: 4 mg Documented by: Ondansetron HCl (Ondansetron 4 Mg/2 Ml Sdv) 2 mg IV Q4H PRN PRN Reason: Pain (severe 7-10) Sodium Chloride (Sodium Chloride 0.9% 10 Ml Syringe) [facility] Last Admin: 05/21/20 17:38 Dose: 10 ml Documented by: - Exam Physical Findings Comments:: General: Alert, Oriented, Cooperative, Mild Distress (due to abdominal pain) HEENT: Conjunctiva Clear, EOMI, Pupils Equal, Pupils Reactive, PERRLA Neck: Supple, Trachea Midline, Full Range of Motion Lungs: Clear to Auscultation, Normal Respiratory Effort GI/Abdominal Exam: Soft, No Organomegaly, Tender (disappeared), Abnormal Bowel Sounds Extremities: Normal Range of Motion, Non-Tender, No Pedal Edema Skin: Warm, Dry, Intact Neurological: Reflexes Equal Bilateral, Strength Equal Bilateral, Normal Speech, Normal Tone, Sensation Intact Neuro Extensive - Mental Status: Alert, Oriented x3, Normal Mood/Affect Neuro Extensive - Motor, Sensory, Reflexes: CN II-XII Intact, Normal Reflexes Psychiatric: Alert, Normal Affect, Normal Mood - Patient Data Lab Results Last 24 hrs: Laboratory Results - last 24 hr 05/21/20 05/21/20 05/21/20 Range/Units 14:33 19:33 19:33 WBC (3.98-10.04) K/mm3 RBC (3.98-5.22) M/mm3 Hgb (11.2-15.7) gm/dl Hct (34.1-44.9) % MCV (79.4-94.8) fl MCH (25.6-32.2) pg MCHC (32.2-35.5) g/dl RDW Std Deviation (36.4-46.3) fL Plt Count (182-369) K/mm3 MPV (9.4-12.3) fl Neut % (Auto) (34.0-71.1) % Lymph % (Auto) (19.3-51.7) % Crowley % (Auto) (4.7-12.5) % Eos % (Auto) (0.7-5.8) Baso % (Auto) (0.1-1.2) % Neut # (Auto) (1.56-6.13) K/mm3 Lymph # (Auto) (1.18-3.74) K/mm3 Crowley # (Auto) (0.24-0.36) K/mm3 Eos # (Auto) (0.04-0.36) K/mm3 Baso # (Auto) (0.01-0.08) K/mm3 PT 12.3 H (9.7-12.0) SECONDS INR 1.15 Sodium (136-145) mEq/L Potassium (3.5-5.1) mEq/L Chloride (98-107) mEq/L Carbon Dioxide (21-32) mEq/L Anion Gap (5-15) BUN (7-18) mg/dL Creatinine (0.55-1.02) mg/dL Est Cr Clr Drug Dosing mL/min Estimated GFR (MDRD) (>60) mL/min BUN/Creatinine Ratio (14-18) Glucose (83-115) mg/dL POC Glucose (83-110) mg/dL Calcium (8.5-10.1) mg/dL Phosphorus 3.2 (2.6-4.7) mg/dL Magnesium 1.4 L (1.8-2.4) mg/dl Total Bilirubin (0.2-1.0) mg/dL AST (15-37) U/L ALT (14-59) U/L Alkaline Phosphatase (46-116) U/L Troponin I < 0.017 (0.00-0.056) ng/mL Total Protein (6.4-8.2) g/dl Albumin (3.4-5.0) g/dl Globulin gm/dL Albumin/Globulin Ratio (1-2) Influenza Type A RNA Negative (NEGATIVE) Influenza Type B RNA Negative (NEGATIVE) 05/21/20 05/22/20 05/22/20 Range/Units 20:33 00:49 01:18 WBC (3.98-10.04) K/mm3 RBC (3.98-5.22) M/mm3 Hgb (11.2-15.7) gm/dl Hct (34.1-44.9) % MCV (79.4-94.8) fl MCH (25.6-32.2) pg MCHC (32.2-35.5) g/dl RDW Std Deviation (36.4-46.3) fL Plt Count (182-369) K/mm3 MPV (9.4-12.3) fl Neut % (Auto) (34.0-71.1) % Lymph % (Auto) (19.3-51.7) % Crowley % (Auto) (4.7-12.5) % Eos % (Auto) (0.7-5.8) Baso % (Auto) (0.1-1.2) % Neut # (Auto) (1.56-6.13) K/mm3 Lymph # (Auto) (1.18-3.74) K/mm3 Crowley # (Auto) (0.24-0.36) K/mm3 Eos # (Auto) (0.04-0.36) K/mm3 Baso # (Auto) (0.01-0.08) K/mm3 PT (9.7-12.0) SECONDS INR Sodium (136-145) mEq/L Potassium (3.5-5.1) mEq/L Chloride (98-107) mEq/L Carbon Dioxide (21-32) mEq/L Anion Gap (5-15) BUN (7-18) mg/dL Creatinine (0.55-1.02) mg/dL Est Cr Clr Drug Dosing mL/min Estimated GFR (MDRD) (>60) mL/min BUN/Creatinine Ratio (14-18) Glucose (83-115) mg/dL POC Glucose 116 H 115 H (83-110) mg/dL Calcium (8.5-10.1) mg/dL Phosphorus (2.6-4.7) mg/dL Magnesium (1.8-2.4) mg/dl Total Bilirubin (0.2-1.0) mg/dL AST (15-37) U/L ALT (14-59) U/L Alkaline Phosphatase (46-116) U/L Troponin I < 0.017 (0.00-0.056) ng/mL Total Protein (6.4-8.2) g/dl Albumin (3.4-5.0) g/dl Globulin gm/dL Albumin/Globulin Ratio (1-2) Influenza Type A RNA (NEGATIVE) Influenza Type B RNA (NEGATIVE) 05/22/20 05/22/20 05/22/20 Range/Units 04:54 04:54 06:27 WBC 9.31 (3.98-10.04) K/mm3 RBC 4.00 (3.98-5.22) M/mm3 Hgb 10.5 L D (11.2-15.7) gm/dl Hct 34.4 (34.1-44.9) % MCV 86.0 (79.4-94.8) fl MCH 26.3 (25.6-32.2) pg MCHC 30.5 L (32.2-35.5) g/dl RDW Std Deviation 48.2 H (36.4-46.3) fL Plt Count 451 H D (182-369) K/mm3 MPV 8.7 L (9.4-12.3) fl Neut % (Auto) 61.1 (34.0-71.1) % Lymph % (Auto) 22.8 (19.3-51.7) % Crowley % (Auto) 14.2 H (4.7-12.5) % Eos % (Auto) 1.5 (0.7-5.8) Baso % (Auto) 0.2 (0.1-1.2) % Neut # (Auto) 5.69 (1.56-6.13) K/mm3 Lymph # (Auto) 2.12 (1.18-3.74) K/mm3 Crowley # (Auto) 1.32 H (0.24-0.36) K/mm3 Eos # (Auto) 0.14 (0.04-0.36) K/mm3 Baso # (Auto) 0.02 (0.01-0.08) K/mm3 PT (9.7-12.0) SECONDS INR Sodium 142 (136-145) mEq/L Potassium 3.4 L (3.5-5.1) mEq/L Chloride 103 (98-107) mEq/L Carbon Dioxide 28 (21-32) mEq/L Anion Gap 14.4 (5-15) BUN 10 (7-18) mg/dL Creatinine 0.7 (0.55-1.02) mg/dL Est Cr Clr Drug Dosing 49.11 mL/min Estimated GFR (MDRD) > 60 (>60) mL/min BUN/Creatinine Ratio 14.3 (14-18) Glucose 124 H (83-115) mg/dL POC Glucose 107 (83-110) mg/dL Calcium 8.8 D (8.5-10.1) mg/dL Phosphorus (2.6-4.7) mg/dL Magnesium (1.8-2.4) mg/dl Total Bilirubin 0.3 (0.2-1.0) mg/dL AST 43 H (15-37) U/L ALT 68 H (14-59) U/L Alkaline Phosphatase 142 H (46-116) U/L Troponin I (0.00-0.056) ng/mL Total Protein 7.0 (6.4-8.2) g/dl Albumin 2.3 L (3.4-5.0) g/dl Globulin 4.7 gm/dL Albumin/Globulin Ratio 0.5 L (1-2) Influenza Type A RNA (NEGATIVE) Influenza Type B RNA (NEGATIVE) 05/22/20 Range/Units 11:29 WBC (3.98-10.04) K/mm3 RBC (3.98-5.22) M/mm3 Hgb (11.2-15.7) gm/dl Hct (34.1-44.9) % MCV (79.4-94.8) fl MCH (25.6-32.2) pg MCHC (32.2-35.5) g/dl RDW Std Deviation (36.4-46.3) fL Plt Count (182-369) K/mm3 MPV (9.4-12.3) fl Neut % (Auto) (34.0-71.1) % Lymph % (Auto) (19.3-51.7) % Crowley % (Auto) (4.7-12.5) % Eos % (Auto) (0.7-5.8) Baso % (Auto) (0.1-1.2) % Neut # (Auto) (1.56-6.13) K/mm3 Lymph # (Auto) (1.18-3.74) K/mm3 Crowley # (Auto) (0.24-0.36) K/mm3 Eos # (Auto) (0.04-0.36) K/mm3 Baso # (Auto) (0.01-0.08) K/mm3 PT (9.7-12.0) SECONDS INR Sodium (136-145) mEq/L Potassium (3.5-5.1) mEq/L Chloride (98-107) mEq/L Carbon Dioxide (21-32) mEq/L Anion Gap (5-15) BUN (7-18) mg/dL Creatinine (0.55-1.02) mg/dL Est Cr Clr Drug Dosing mL/min Estimated GFR (MDRD) (>60) mL/min BUN/Creatinine Ratio (14-18) Glucose (83-115) mg/dL POC Glucose 127 H (83-110) mg/dL Calcium (8.5-10.1) mg/dL Phosphorus (2.6-4.7) mg/dL Magnesium (1.8-2.4) mg/dl Total Bilirubin (0.2-1.0) mg/dL AST (15-37) U/L ALT (14-59) U/L Alkaline Phosphatase (46-116) U/L Troponin I (0.00-0.056) ng/mL Total Protein (6.4-8.2) g/dl Albumin (3.4-5.0) g/dl Globulin gm/dL Albumin/Globulin Ratio (1-2) Influenza Type A RNA (NEGATIVE) Influenza Type B RNA (NEGATIVE) Result Diagrams: 05/22/20 04:54 05/22/20 04:54 Sepsis Event Note - Evaluation Sepsis Screening Result: No Definite Risk - Focused Exam Vital Signs: Vital Signs Temp Pulse Resp BP Pulse Ox 05/22/20 11:33 36.6 C 84 18 115/55 L 97 05/22/20 10:58 87 96 05/22/20 08:06 36.7 C 96 20 137/56 L 94 L 05/22/20 07:27 36.8 C 97 16 133/45 L 92 L 05/22/20 04:02 36.9 C 102 H 16 137/46 L 94 L 05/22/20 00:59 36.7 C 107 H 16 133/55 L 93 L - Problem List Review Problem List Initiated/Reviewed/Updated: Yes - My Orders Last 24 Hours: My Active Orders 05/21/20 19:07 Bedrest Bedside Commode [RC] ASDIRECTED Height and Weight [RC] 06 Oxygen Therapy [RC] PRN VTE/DVT Education [RC] PER UNIT ROUTINE Vital Signs [RC] Q4H Acetaminophen [TylenoL] 650 mg PO Q6H PRN Albuterol/Ipratropium [DuoNeb 3.0-0.5 MG/3 ML] 3 ml NEB Q4H PRN Morphine 2 mg IVPUSH Q4H PRN 05/21/20 19:08 Intake and Output [RC] 04,16 05/21/20 19:17 EKG Documentation Completion [RC] ROUTINE RT Aerosol Therapy [RC] ASDIRECTED OT Evaluation and Treatment [CONS] Routine PT Evaluation and Treatment [CONS] Routine 05/21/20 19:20 hydrALAZINE [Apresoline] 10 mg IVPUSH Q4H PRN traMADol [Ultram] 50 mg PO Q4H PRN 05/21/20 19:54 Isolation [COMM] Routine 05/21/20 21:00 Aspirin [Halfprin] 81 mg PO BEDTIME Calcium Carbonate 1,200 mg PO BID cloNIDine [Catapres] 0.2 mg PO BEDTIME 05/21/20 21:21 Code Status [Resuscitation Status] Routine 05/21/20 22:00 Heparin Sodium 5,000 units SUBCUT Q8H Insulin Lispro [HumaLOG] See Protocol SUBCUT QIDACANDBED 05/21/20 22:10 Blood Glucose Check, Bedside [RC] 00,06,12,18 05/22/20 Breakfast Clear Liquid Diet [DIET] 05/22/20 07:03 Ondansetron [Zofran] 4 mg IVPUSH Q6H PRN 05/22/20 07:46 Nasogastric Orogastric Tube Removal [OM.PC] Stat 05/22/20 08:15 NS + KCl 20mEq/L [Normal Saline with 20 mEq KCl] 1,000 ml IV ASDIRECTED 05/22/20 12:00 Cyanocobalamin (Vitamin B12) [Vitamin B12] 1,000 mcg PO DAILY@1200 05/23/20 05:00 CBC WITH AUTO DIFF [HEME] DAILY COMPREHENSIVE METABOLIC PN,CMP [CHEM] DAILY 05/24/20 05:00 CBC WITH AUTO DIFF [HEME] DAILY COMPREHENSIVE METABOLIC PN,CMP [CHEM] DAILY 05/25/20 05:00 CBC WITH AUTO DIFF [HEME] DAILY COMPREHENSIVE METABOLIC PN,CMP [CHEM] DAILY 05/26/20 05:00 CBC WITH AUTO DIFF [HEME] DAILY COMPREHENSIVE METABOLIC PN,CMP [CHEM] DAILY 05/27/20 05:00 CBC WITH AUTO DIFF [HEME] DAILY COMPREHENSIVE METABOLIC PN,CMP [CHEM] DAILY - Plan Plan:: Pt is a 74 yof with a hx of Crohns disease and s/p of appendectomy and cholecystectomy who was sent to the ER due to possible small bowel obstruction. Assessment and plan: 1. Early or partial small bowel obstruction 2. Hx of Crohn's disease of small intestine CT abd - dilated small bowel. Two of focal areas of narrowing are seen within the distal small bowel which are nonspecific regarding etiology and difficult to completely exclude neoplasm. s/p appendectomy and cholecystectomy Had a colonoscopy in the past but she does not know any sort of narrowing in her GI tract from previous colonoscopies Dr. Morrow is on board. Really appreciate it As per Dr. Morrow, discontinued NGT sucntion Clear liquid, advanced as tolerated IVF pain management 3. DM type 2 Metformin is on hold Insulin ss 4. Anemia Etology unknown. But she is on ferrous sulfate and Vit B 12 repeat CBC in am 5. Nephrolithiasis CT abd - nonobstructing calculus within the lower right kidney. f/u with pcp and urology 6. Cold-like symtoms CXR -no acute changes Covid 19 test pending influenza A and B negative 7. Elevation of liver enzymes AST 43, ALT 6 8, alkaline phos 142 Repeat liver enzymes in the morning 8. Electrolytes imbalance Replaced and repeat it 9. DVT prophylaxis: heparin 10. CODE STATUS: Full
--- NOTE | 2020-05-22 14:48 | PCM.CONSN ---
- General Info Date of Service: 05/22/20 Admission Dx/Problem (Free Text): partial small bowel obstruction Subjective Update: Pt reports having a bowel movement yesterday evening. Denies any current nausea or abdominal pain. Per nursing staff, pt has had only gastric contents from the NGT - Patient Data Vitals - Most Recent: Last Vital Signs Temp 36.6 C 05/22/20 11:33 Pulse 84 05/22/20 11:33 Resp 18 05/22/20 11:33 BP 115/55 L 05/22/20 11:33 Pulse Ox 97 05/22/20 11:33 Weight - Most Recent: 58.332 kg I&O - Last 24 Hours: Intake & Output 05/21/20 05/22/20 05/22/20 22:59 06:59 14:59 Intake Total 415 Output Total 400 Balance 15 Lab Results Last 24 Hours: Laboratory Results - last 24 hr 05/21/20 05/21/20 05/21/20 Range/Units 14:33 19:33 19:33 WBC (3.98-10.04) K/mm3 RBC (3.98-5.22) M/mm3 Hgb (11.2-15.7) gm/dl Hct (34.1-44.9) % MCV (79.4-94.8) fl MCH (25.6-32.2) pg MCHC (32.2-35.5) g/dl RDW Std Deviation (36.4-46.3) fL Plt Count (182-369) K/mm3 MPV (9.4-12.3) fl Neut % (Auto) (34.0-71.1) % Lymph % (Auto) (19.3-51.7) % [place] % (Auto) (4.7-12.5) % Eos % (Auto) (0.7-5.8) Baso % (Auto) (0.1-1.2) % Neut # (Auto) (1.56-6.13) K/mm3 Lymph # (Auto) (1.18-3.74) K/mm3 [place] # (Auto) (0.24-0.36) K/mm3 Eos # (Auto) (0.04-0.36) K/mm3 Baso # (Auto) (0.01-0.08) K/mm3 PT 12.3 H (9.7-12.0) SECONDS INR 1.15 Sodium (136-145) mEq/L Potassium (3.5-5.1) mEq/L Chloride (98-107) mEq/L Carbon Dioxide (21-32) mEq/L Anion Gap (5-15) BUN (7-18) mg/dL Creatinine (0.55-1.02) mg/dL Est Cr Clr Drug Dosing mL/min Estimated GFR (MDRD) (>60) mL/min BUN/Creatinine Ratio (14-18) Glucose (83-115) mg/dL POC Glucose (83-110) mg/dL Calcium (8.5-10.1) mg/dL Phosphorus 3.2 (2.6-4.7) mg/dL Magnesium 1.4 L (1.8-2.4) mg/dl Total Bilirubin (0.2-1.0) mg/dL AST (15-37) U/L ALT (14-59) U/L Alkaline Phosphatase (46-116) U/L Troponin I < 0.017 (0.00-0.056) ng/mL Total Protein (6.4-8.2) g/dl Albumin (3.4-5.0) g/dl Globulin gm/dL Albumin/Globulin Ratio (1-2) Influenza Type A RNA Negative (NEGATIVE) Influenza Type B RNA Negative (NEGATIVE) 05/21/20 05/22/20 05/22/20 Range/Units 20:33 00:49 01:18 WBC (3.98-10.04) K/mm3 RBC (3.98-5.22) M/mm3 Hgb (11.2-15.7) gm/dl Hct (34.1-44.9) % MCV (79.4-94.8) fl MCH (25.6-32.2) pg MCHC (32.2-35.5) g/dl RDW Std Deviation (36.4-46.3) fL Plt Count (182-369) K/mm3 MPV (9.4-12.3) fl Neut % (Auto) (34.0-71.1) % Lymph % (Auto) (19.3-51.7) % [place] % (Auto) (4.7-12.5) % Eos % (Auto) (0.7-5.8) Baso % (Auto) (0.1-1.2) % Neut # (Auto) (1.56-6.13) K/mm3 Lymph # (Auto) (1.18-3.74) K/mm3 [place] # (Auto) (0.24-0.36) K/mm3 Eos # (Auto) (0.04-0.36) K/mm3 Baso # (Auto) (0.01-0.08) K/mm3 PT (9.7-12.0) SECONDS INR Sodium (136-145) mEq/L Potassium (3.5-5.1) mEq/L Chloride (98-107) mEq/L Carbon Dioxide (21-32) mEq/L Anion Gap (5-15) BUN (7-18) mg/dL Creatinine (0.55-1.02) mg/dL Est Cr Clr Drug Dosing mL/min Estimated GFR (MDRD) (>60) mL/min BUN/Creatinine Ratio (14-18) Glucose (83-115) mg/dL POC Glucose 116 H 115 H (83-110) mg/dL Calcium (8.5-10.1) mg/dL Phosphorus (2.6-4.7) mg/dL Magnesium (1.8-2.4) mg/dl Total Bilirubin (0.2-1.0) mg/dL AST (15-37) U/L ALT (14-59) U/L Alkaline Phosphatase (46-116) U/L Troponin I < 0.017 (0.00-0.056) ng/mL Total Protein (6.4-8.2) g/dl Albumin (3.4-5.0) g/dl Globulin gm/dL Albumin/Globulin Ratio (1-2) Influenza Type A RNA (NEGATIVE) Influenza Type B RNA (NEGATIVE) 05/22/20 05/22/20 05/22/20 Range/Units 04:54 04:54 06:27 WBC 9.31 (3.98-10.04) K/mm3 RBC 4.00 (3.98-5.22) M/mm3 Hgb 10.5 L D (11.2-15.7) gm/dl Hct 34.4 (34.1-44.9) % MCV 86.0 (79.4-94.8) fl MCH 26.3 (25.6-32.2) pg MCHC 30.5 L (32.2-35.5) g/dl RDW Std Deviation 48.2 H (36.4-46.3) fL Plt Count 451 H D (182-369) K/mm3 MPV 8.7 L (9.4-12.3) fl Neut % (Auto) 61.1 (34.0-71.1) % Lymph % (Auto) 22.8 (19.3-51.7) % [place] % (Auto) 14.2 H (4.7-12.5) % Eos % (Auto) 1.5 (0.7-5.8) Baso % (Auto) 0.2 (0.1-1.2) % Neut # (Auto) 5.69 (1.56-6.13) K/mm3 Lymph # (Auto) 2.12 (1.18-3.74) K/mm3 [place] # (Auto) 1.32 H (0.24-0.36) K/mm3 Eos # (Auto) 0.14 (0.04-0.36) K/mm3 Baso # (Auto) 0.02 (0.01-0.08) K/mm3 PT (9.7-12.0) SECONDS INR Sodium 142 (136-145) mEq/L Potassium 3.4 L (3.5-5.1) mEq/L Chloride 103 (98-107) mEq/L Carbon Dioxide 28 (21-32) mEq/L Anion Gap 14.4 (5-15) BUN 10 (7-18) mg/dL Creatinine 0.7 (0.55-1.02) mg/dL Est Cr Clr Drug Dosing 49.11 mL/min Estimated GFR (MDRD) > 60 (>60) mL/min BUN/Creatinine Ratio 14.3 (14-18) Glucose 124 H (83-115) mg/dL POC Glucose 107 (83-110) mg/dL Calcium 8.8 D (8.5-10.1) mg/dL Phosphorus (2.6-4.7) mg/dL Magnesium (1.8-2.4) mg/dl Total Bilirubin 0.3 (0.2-1.0) mg/dL AST 43 H (15-37) U/L ALT 68 H (14-59) U/L Alkaline Phosphatase 142 H (46-116) U/L Troponin I (0.00-0.056) ng/mL Total Protein 7.0 (6.4-8.2) g/dl Albumin 2.3 L (3.4-5.0) g/dl Globulin 4.7 gm/dL Albumin/Globulin Ratio 0.5 L (1-2) Influenza Type A RNA (NEGATIVE) Influenza Type B RNA (NEGATIVE) 05/22/20 Range/Units 11:29 WBC (3.98-10.04) K/mm3 RBC (3.98-5.22) M/mm3 Hgb (11.2-15.7) gm/dl Hct (34.1-44.9) % MCV (79.4-94.8) fl MCH (25.6-32.2) pg MCHC (32.2-35.5) g/dl RDW Std Deviation (36.4-46.3) fL Plt Count (182-369) K/mm3 MPV (9.4-12.3) fl Neut % (Auto) (34.0-71.1) % Lymph % (Auto) (19.3-51.7) % [place] % (Auto) (4.7-12.5) % Eos % (Auto) (0.7-5.8) Baso % (Auto) (0.1-1.2) % Neut # (Auto) (1.56-6.13) K/mm3 Lymph # (Auto) (1.18-3.74) K/mm3 [place] # (Auto) (0.24-0.36) K/mm3 Eos # (Auto) (0.04-0.36) K/mm3 Baso # (Auto) (0.01-0.08) K/mm3 PT (9.7-12.0) SECONDS INR Sodium (136-145) mEq/L Potassium (3.5-5.1) mEq/L Chloride (98-107) mEq/L Carbon Dioxide (21-32) mEq/L Anion Gap (5-15) BUN (7-18) mg/dL Creatinine (0.55-1.02) mg/dL Est Cr Clr Drug Dosing mL/min Estimated GFR (MDRD) (>60) mL/min BUN/Creatinine Ratio (14-18) Glucose (83-115) mg/dL POC Glucose 127 H (83-110) mg/dL Calcium (8.5-10.1) mg/dL Phosphorus (2.6-4.7) mg/dL Magnesium (1.8-2.4) mg/dl Total Bilirubin (0.2-1.0) mg/dL AST (15-37) U/L ALT (14-59) U/L Alkaline Phosphatase (46-116) U/L Troponin I (0.00-0.056) ng/mL Total Protein (6.4-8.2) g/dl Albumin (3.4-5.0) g/dl Globulin gm/dL Albumin/Globulin Ratio (1-2) Influenza Type A RNA (NEGATIVE) Influenza Type B RNA (NEGATIVE) Med Orders - Current: Current Medications Acetaminophen (Acetaminophen 325 Mg Tab) 650 mg PO Q6H PRN PRN Reason: Pain (Mild 1-3)/fever Last Admin: 05/22/20 11:38 Dose: 650 mg Documented by: Albuterol/Ipratropium (Albuterol/Ipratropium 3.0-0.5 Mg/3 Ml Neb Soln) 3 ml NEB Q4H PRN PRN Reason: Shortness Of Breath/wheezing Aspirin (Aspirin 81 Mg Tab.Ec) 81 mg PO BEDTIME [facility] Last Admin: 05/21/20 22:41 Dose: Not Given Documented by: Calcium Carbonate/Glycine (Calcium Carbonate 600 Mg Tab) 1,200 mg PO BID [facility] Last Admin: 05/22/20 08:52 Dose: 1,200 mg Documented by: Clonidine HCl (Clonidine 0.1 Mg Tab) 0.2 mg PO BEDTIME [facility] Last Admin: 05/21/20 22:40 Dose: Not Given Documented by: Cyanocobalamin (Cyanocobalamin (Vitamin B12) 1,000 Mcg Tab) 1,000 mcg PO DAILY@1200 [facility] Last Admin: 05/22/20 11:39 Dose: 1,000 mcg Documented by: Heparin Sodium (Porcine) (Heparin Sodium 5,000 Units/Ml Vial) 5,000 units SUBCUT Q8H [facility] Last Admin: 05/22/20 14:17 Dose: 5,000 units Documented by: Hydralazine HCl (Hydralazine 20 Mg/Ml Sdv) 10 mg IVPUSH Q4H PRN PRN Reason: Hypertension Insulin Human Lispro (Insulin Lispro 100 Unit/Ml) 0 unit SUBCUT QIDACANDBED [facility]; Protocol Last Admin: 05/22/20 11:39 Dose: Not Given Documented by: Morphine Sulfate (Morphine 2 Mg/Ml Syringe) 2 mg IVPUSH Q4H PRN PRN Reason: Pain (severe 7-10) Stop: 05/22/20 19:09 Ondansetron HCl (Ondansetron 4 Mg/2 Ml Sdv) 4 mg IVPUSH Q6H PRN PRN Reason: Nausea/Vomiting Sodium Chloride (Sodium Chloride 0.9% 10 Ml Syringe) 10 ml FLUSH ASDIRECTED PRN PRN Reason: Keep Vein Open Last Admin: 05/21/20 16:04 Dose: 10 ml Documented by: Tramadol HCl (Tramadol 50 Mg Tab) 50 mg PO Q4H PRN PRN Reason: Pain (moderate 4-6) Discontinued Medications Diatrizoate Meglum/Diatrizoate Sod (Diatrizoate Meglumine/Diatrizoate Sodium 37% 120 Ml Bottle) 120 ml PO ONETIME ONE Stop: 05/21/20 17:37 Last Admin: 05/21/20 17:37 Dose: 120 ml Documented by: Sodium Chloride (Normal Saline) 1,000 mls @ 999 mls/hr IV ONETIME ONE Stop: 05/21/20 16:45 Last Admin: 05/21/20 16:04 Dose: 999 mls/hr Documented by: Sodium Chloride (Normal Saline) 1,000 mls @ 65 mls/hr IV ASDIRECTED [facility] Last Admin: 05/21/20 21:29 Dose: 65 mls/hr Documented by: Ondansetron HCl 4 mg/ Sodium (Chloride) 52 mls @ 100 mls/hr IV Q6H PRN PRN Reason: Nausea/Vomiting Potassium Chloride/Sodium Chloride (Normal Saline With 20 Meq Kcl) 1,000 mls @ 65 mls/hr IV ASDIRECTED [facility] Last Admin: 05/22/20 08:52 Dose: 65 mls/hr Documented by: Iopamidol (Iopamidol 612 Mg/Ml 100 Ml Bottle) 100 ml IVPUSH ONETIME ONE Stop: 05/21/20 17:37 Last Admin: 05/21/20 17:38 Dose: 100 ml Documented by: Ondansetron HCl (Ondansetron 4 Mg/2 Ml Sdv) 4 mg IVPUSH ONETIME ONE Stop: 05/21/20 15:46 Last Admin: 05/21/20 16:04 Dose: 4 mg Documented by: Ondansetron HCl (Ondansetron 4 Mg/2 Ml Sdv) 2 mg IV Q4H PRN PRN Reason: Pain (severe 7-10) Sodium Chloride (Sodium Chloride 0.9% 10 Ml Syringe) 10 ml FLUSH ASDIRECTED HIRAL Last Admin: 05/21/20 17:38 Dose: 10 ml Documented by: - Exam Quality Assessment: No: Supplemental Oxygen General: Alert HEENT: Other (NGT in place with clear gastric aspirate) Neck: Supple GI/Abdominal Exam: Soft, Non-Tender, Distended (mild with continued tympany in the LUQ) Sepsis Event Note - Evaluation Sepsis Screening Result: No Definite Risk - Focused Exam Vital Signs: Vital Signs Temp Pulse Resp BP Pulse Ox 05/22/20 11:33 36.6 C 84 18 115/55 L 97 05/22/20 10:58 87 96 05/22/20 08:06 36.7 C 96 20 137/56 L 94 L 05/22/20 07:27 36.8 C 97 16 133/45 L 92 L 05/22/20 04:02 36.9 C 102 H 16 137/46 L 94 L Consult PN Assessment/Plan Procedures: Procedures AQUATIC THERAPY/EXERCISES (12/20/18) ASSAY OF CREATININE (11/12/16) ASSAY OF FERRITIN (06/29/19) ASSAY OF FOLIC ACID SERUM (10/03/15) ASSAY OF IRON (06/29/19) ASSAY OF LIPASE (10/10/16) ASSAY OF TRANSFERRIN (06/29/19) ASSAY THYROID STIM HORMONE (03/19/20) BLOOD CULTURE FOR BACTERIA (10/27/16) BREAST TOMOSYNTHESIS BI (05/07/19) C DIFF AMPLIFIED PROBE (10/05/16) C-REACTIVE PROTEIN (06/29/19) CHEST X-RAY 1 VIEW FRONTAL (08/15/15) COMP SCREEN MAMMOGRAM ADD-ON (04/28/15) COMPLETE CBC AUTOMATED (03/19/20) COMPLETE CBC W/AUTO DIFF WBC (05/26/18) COMPREHEN METABOLIC PANEL (03/19/20) CT ABD & PELV W/CONTRAST (09/18/19) EMERGENCY DEPT VISIT (05/26/18) EMERGENCY DEPT VISIT (10/10/16) EMERGENCY DEPT VISIT (08/15/15) EXTREMITY STUDY (11/01/18) GLYCOSYLATED HEMOGLOBIN TEST (03/19/20) HYDRATE IV INFUSION ADD-ON (05/26/18) HYDRATION IV INFUSION INIT (08/15/15) LEUKOCYTE ASSESSMENT FECAL (10/05/16) LIPID PANEL (03/19/20) MANUAL THERAPY 1/> REGIONS (04/17/19) MASSAGE THERAPY (11/22/18) MEASURE BLOOD OXYGEN LEVEL (10/10/16) MECHANICAL TRACTION THERAPY (08/24/18) METABOLIC PANEL TOTAL CA (11/03/16) MICROBE SUSCEPTIBLE MONTSERRAT (03/16/17) MRI LUMBAR SPINE W/O DYE (06/15/18) NEUROMUSCULAR REEDUCATION (12/29/18) OFFICE O/P EST LOW 20-29 MIN (06/14/18) OFFICE O/P EST MOD 30-39 MIN (08/20/16) OT EVAL LOW COMPLEX 30 MIN (10/10/16) PROTHROMBIN TIME (11/07/18) PT EVAL LOW COMPLEX 20 MIN (04/17/19) PT EVAL MOD COMPLEX 30 MIN (11/22/18) RBC SED RATE AUTOMATED (06/19/18) ROUTINE VENIPUNCTURE (03/19/20) SCR MAMMO BI INCL CAD (05/07/19) SHIGA-LIKE TOXIN AG IA (10/05/16) STOOL CULTR AEROBIC BACT EA (10/05/16) THER/PROPH/DIAG INJ IV PUSH (05/26/18) THERAPEUTIC ACTIVITIES (12/20/18) THERAPEUTIC EXERCISES (04/17/19) THROMBOPLASTIN TIME PARTIAL (11/07/18) TX/PRO/DX INJ NEW DRUG ADDON (10/10/16) UR ALBUMIN SEMIQUANTITATIVE (03/19/20) URINALYSIS AUTO W/O SCOPE (11/06/14) URINALYSIS AUTO W/SCOPE (03/03/18) URINE BACTERIA CULTURE (03/16/17) URINE CULTURE/COLONY COUNT (03/16/17) VITAMIN B-12 (10/03/15) X-RAY EXAM ABDOMEN 1 VIEW (05/26/18) X-RAY EXAM L-S SPINE 2/3 VWS (06/14/18) X-RAY EXAM OF ABDOMEN (10/10/16) X-RAY EXAM OF ABDOMEN (12/24/14) X-RAY EXAM OF ANKLE (06/22/17) X-RAY EXAM RIBS UNI 2 VIEWS (08/15/15) (1) Abdominal pain SNOMED Code(s): 10744204 Code(s): R10.9 - UNSPECIFIED ABDOMINAL PAIN Priority: High Current Visit: No Qualifiers: Abdominal location: generalized Qualified Code(s): R10.84 - Generalized abdominal pain (2) Partial small bowel obstruction SNOMED Code(s): 741007242 Code(s): K56.600 - PARTIAL INTESTINAL OBSTRUCTION, UNSPECIFIED TO CAUSE Current Visit: No Problem List Initiated/Reviewed/Updated: Yes Plan: 74 y/o lady with partial small bowel obstruction, unclear if this is 2/2 Crohn's vs. previous stricturing, or new process. Obstruction appears resolved with now ROBF - recommend d/c NGT decompression - advance to clear liquid diet. Pt may advance as tolerated - f/u with established GI provider for history of Crohn's disease and possible role of IBD in this current hospitalization. No additional surgical follow up at this time. May d/c home if tolerating full liquids or regular diet. Waleska Mendez MD General surgery
[2020-05-22] MEDS: cloNIDine 0.1 MG Tab PO SCH (21:53)
[2020-05-22] MEDS: Aspirin 81 MG Tab.EC PO SCH (21:54)
[2020-05-23] MEDS: Heparin Sodium 5,000 Units/ML Vial SUBCUT SCH ×2 (06:14→13:06)
[2020-05-23] MEDS: Calcium Carbonate 600 MG Tab PO SCH (08:09)
[2020-05-23] MEDS: Potassium Chloride 20 MEQ Tab.ER PO SCH ×2 (08:47→15:14)
[2020-05-23] MEDS: Potassium Chloride 10 MEQ in Premix Bag 1 BAG IV SCH ×4 (08:47→12:56)
[2020-05-23] MEDS: Cyanocobalamin (Vitamin B12) 1,000 MCG Tab PO SCH (11:53)
[2020-05-23 13:47] VITALS: BP 123/62; PULSE 85
--- NOTE | 2020-05-23 15:23 | PCM.DCSUM1 ---
Discharge Summary - Hospital Course Free Text/Narrative:: Pt is a 74 yof with a hx of Crohns disease and s/p of appendectomy and cholecystectomy who was sent to the ER due to possible small bowel obstruction. Assessment and plan: 1. Early or partial small bowel obstruction - resolved 2. Hx of Crohn's disease of small intestine CT abd - dilated small bowel. Two of focal areas of narrowing are seen within the distal small bowel which are nonspecific regarding etiology and difficult to completely exclude neoplasm. s/p appendectomy and cholecystectomy Had a colonoscopy in the past but she does not know any sort of narrowing in her GI tract from previous colonoscopies Dr. Morrow is on board. Really appreciate it Patient had bowel movement x1 last night and x 1this morning. Patient can tolerate food. Discussed with Dr. Morrow who cleared her to discharge her to home today. 3. DM type 2 Metformin will be resumed on discharge Insulin ss 4. Anemia Etology unknown. But she is on ferrous sulfate and Vit B 12 repeat CBC in am 5. Nephrolithiasis CT abd - nonobstructing calculus within the lower right kidney. f/u with pcp and urology 6. Cold-like symtoms CXR -no acute changes Covid 19 test pending influenza A and B negative 7. Elevation of liver enzymes AST 43, ALT 6 8, alkaline phos 142 Repeat liver enzymes Follow with GI 8. Electrolytes imbalance Replaced and repeat it Today patient does not have any complaints. Denies headache, dizziness, chest pain, shortness of breath, nausea, vomiting, abdominal pain, or diarrhea. Patient had bowel movement x1 last night and x1 this morning. Patient can tolerate food. Dr. Morrow cleared to discharge the patient to home today. Patient can walk without any problems. can take good care of her. Patient will be discharged home to follow with PCP in 3 days, GI and Dr. Morrow in 1 week and urology in one week. Repeat a CBC, CMP and electrolytes in 3 days. Check blood sugar before each meal and at bedtime. Adjust insulin based on sugar levels. Do not drive until approval from MD. Call PCP for medical issues. Diagnosis: Stroke: No - Discharge Data Discharge Date: 05/23/20 Discharge Disposition: Home, Self-Care 01 Condition: Good - Referral to Home Health Primary Care Physician: Ivette Suarez NP - Patient Summary/Data Consults: Consultations 05/21/20 18:10 Consult to Physician [CONS] Stat 05/21/20 19:17 OT Evaluation and Treatment [CONS] Routine PT Evaluation and Treatment [CONS] Routine Dr. Morrow Recommended Follow-up Testing/Procedures: follow with PCP in 3 days, GI and Dr. Morrow in 1 week and urology in one week. Repeat a CBC, CMP and electrolytes in 3 days. Check blood sugar before each meal and at bedtime. Adjust insulin based on sugar levels. Do not drive until approval from MD. Call PCP for medical issues. - Patient Instructions Diet: Diabetic Diet - Discharge Plan *PRESCRIPTION DRUG MONITORING PROGRAM REVIEWED*: Not Applicable *COPY OF PRESCRIPTION DRUG MONITORING REPORT IN PATIENT GAVIN: Not Applicable Prescriptions/Med Rec: Insulin Lispro [Humalog] See Protocol SUBCUT QIDACANDBED #10 ml Home Medications: Home Meds Aspirin 81 mg PO BEDTIME 08/15/15 [History] Calcium Carbonate [Calcium] 1,200 mg PO BID 08/15/15 [History] Cyanocobalamin (Vitamin B-12) [B-12] 1,000 mg PO 1200 08/15/15 [History] Ferrous Sulfate [Iron] 325 mg PO BID 08/15/15 [History] Folic Acid 1,000 mcg PO DAILY 08/15/15 [History] Furosemide 1 tab PO DAILY 08/15/15 [History] Potassium Chloride [Klor-Con 10] 10 meq PO TID 08/15/15 [History] cloNIDine [Catapres] 0.2 mg PO BEDTIME 08/15/15 [History] metFORMIN HCl [Metformin HCl] 1,000 mg PO BID 08/15/15 [History] Pnv No.121/Iron/Folic Acid [ Multivitamin Tablet] 1 tab PO DAILY 05/26/18 [History] Ondansetron [Zofran ODT] 4 mg .XX PRN 05/22/20 [History] atorvaSTATin [Lipitor] 1 tab PO DAILY 05/22/20 [History] Insulin Lispro [Humalog] See Protocol SUBCUT QIDACANDBED #10 ml 05/23/20 [Rx] Patient Handouts: Bowel Obstruction, [id number] Forms: ED Department Discharge Referrals: Ivette Suarez NP [Primary Care Provider] - 06/02/20 10:30 am (Hospital follow- up appointment. ) GI, in one week or sooner. [Other] Dr. Morrow, in one week. [Other] - Discharge Summary/Plan Comment DC Time >30 min.: Yes - General Info Date of Service: 05/23/20 Admission Dx/Problem (Free Text: partial small bowel obstruction Subjective Update: Pt is a 74 yof with a hx of Crohns disease and s/p of appendectomy and cholecystectomy who was sent to the ER due to possible small bowel obstruction. Patient feels fine today. Denies abdominal pain, nausea, or vomiting. Had a bowel movement x 1 last night and x1 this morning. Vital signs are stable and acceptable. - Review of Systems Systems Review Comment: General: Reports: Malaise HEENT: Reports: No Symptoms Pulmonary: Reports: Cough Cardiovascular: Reports: No Symptoms Gastrointestinal: Reports: Abdominal Pain, Nausea, Vomiting (resolved) Musculoskeletal: Reports: No Symptoms Skin: Reports: No Symptoms Psychiatric: Reports: No Symptoms Neurological: Reports: No Symptoms Hematologic/Lymphatic: Reports: No Symptoms Immunologic: Reports: No Symptoms - Patient Data Vitals - Most Recent: Last Vital Signs Temp 36.4 C 05/23/20 11:50 Pulse 85 05/23/20 11:50 Resp 16 05/23/20 11:50 BP 123/62 05/23/20 11:50 Pulse Ox 96 05/23/20 11:50 Weight - Most Recent: 58.241 kg I&O - Last 24 hours: Intake & Output 05/23/20 05/23/20 05/23/20 06:59 14:59 22:59 Intake Total 400 300 Balance 400 300 Lab Results - Last 24 hrs: Laboratory Results - last 24 hr 05/22/20 05/22/20 05/23/20 Range/Units 17:37 21:49 06:10 WBC 8.88 (3.98-10.04) K/mm3 RBC 3.95 L (3.98-5.22) M/mm3 Hgb 10.4 L (11.2-15.7) gm/dl Hct 33.9 L (34.1-44.9) % MCV 85.8 (79.4-94.8) fl MCH 26.3 (25.6-32.2) pg MCHC 30.7 L (32.2-35.5) g/dl RDW Std Deviation 48.4 H (36.4-46.3) fL Plt Count 506 H (182-369) K/mm3 MPV 8.7 L (9.4-12.3) fl Neut % (Auto) 62.5 (34.0-71.1) % Lymph % (Auto) 20.4 (19.3-51.7) % Jones % (Auto) 14.9 H (4.7-12.5) % Eos % (Auto) 1.8 (0.7-5.8) Baso % (Auto) 0.2 (0.1-1.2) % Neut # (Auto) 5.55 (1.56-6.13) K/mm3 Lymph # (Auto) 1.81 (1.18-3.74) K/mm3 Jones # (Auto) 1.32 H (0.24-0.36) K/mm3 Eos # (Auto) 0.16 (0.04-0.36) K/mm3 Baso # (Auto) 0.02 (0.01-0.08) K/mm3 Sodium (136-145) mEq/L Potassium (3.5-5.1) mEq/L Chloride (98-107) mEq/L Carbon Dioxide (21-32) mEq/L Anion Gap (5-15) BUN (7-18) mg/dL Creatinine (0.55-1.02) mg/dL Est Cr Clr Drug Dosing mL/min Estimated GFR (MDRD) (>60) mL/min BUN/Creatinine Ratio (14-18) Glucose (83-115) mg/dL POC Glucose 181 H 143 H (83-110) mg/dL Calcium (8.5-10.1) mg/dL Total Bilirubin (0.2-1.0) mg/dL AST (15-37) U/L ALT (14-59) U/L Alkaline Phosphatase (46-116) U/L Total Protein (6.4-8.2) g/dl Albumin (3.4-5.0) g/dl Globulin gm/dL Albumin/Globulin Ratio (1-2) 05/23/20 05/23/20 05/23/20 Range/Units 06:10 06:10 11:56 WBC (3.98-10.04) K/mm3 RBC (3.98-5.22) M/mm3 Hgb (11.2-15.7) gm/dl Hct (34.1-44.9) % MCV (79.4-94.8) fl MCH (25.6-32.2) pg MCHC (32.2-35.5) g/dl RDW Std Deviation (36.4-46.3) fL Plt Count (182-369) K/mm3 MPV (9.4-12.3) fl Neut % (Auto) (34.0-71.1) % Lymph % (Auto) (19.3-51.7) % Jones % (Auto) (4.7-12.5) % Eos % (Auto) (0.7-5.8) Baso % (Auto) (0.1-1.2) % Neut # (Auto) (1.56-6.13) K/mm3 Lymph # (Auto) (1.18-3.74) K/mm3 Jones # (Auto) (0.24-0.36) K/mm3 Eos # (Auto) (0.04-0.36) K/mm3 Baso # (Auto) (0.01-0.08) K/mm3 Sodium 141 (136-145) mEq/L Potassium 2.7 L (3.5-5.1) mEq/L Chloride 104 (98-107) mEq/L Carbon Dioxide 29 (21-32) mEq/L Anion Gap 10.7 (5-15) BUN 6 L (7-18) mg/dL Creatinine 0.7 (0.55-1.02) mg/dL Est Cr Clr Drug Dosing 49.11 mL/min Estimated GFR (MDRD) > 60 (>60) mL/min BUN/Creatinine Ratio 8.6 L (14-18) Glucose 131 H (83-115) mg/dL POC Glucose 125 H 206 H (83-110) mg/dL Calcium 9.4 (8.5-10.1) mg/dL Total Bilirubin 0.2 (0.2-1.0) mg/dL AST 40 H (15-37) U/L ALT 59 (14-59) U/L Alkaline Phosphatase 140 H (46-116) U/L Total Protein 6.9 (6.4-8.2) g/dl Albumin 2.2 L (3.4-5.0) g/dl Globulin 4.7 gm/dL Albumin/Globulin Ratio 0.5 L (1-2) 05/23/20 Range/Units 14:00 WBC (3.98-10.04) K/mm3 RBC (3.98-5.22) M/mm3 Hgb (11.2-15.7) gm/dl Hct (34.1-44.9) % MCV (79.4-94.8) fl MCH (25.6-32.2) pg MCHC (32.2-35.5) g/dl RDW Std Deviation (36.4-46.3) fL Plt Count (182-369) K/mm3 MPV (9.4-12.3) fl Neut % (Auto) (34.0-71.1) % Lymph % (Auto) (19.3-51.7) % Jones % (Auto) (4.7-12.5) % Eos % (Auto) (0.7-5.8) Baso % (Auto) (0.1-1.2) % Neut # (Auto) (1.56-6.13) K/mm3 Lymph # (Auto) (1.18-3.74) K/mm3 Jones # (Auto) (0.24-0.36) K/mm3 Eos # (Auto) (0.04-0.36) K/mm3 Baso # (Auto) (0.01-0.08) K/mm3 Sodium 140 (136-145) mEq/L Potassium 3.7 (3.5-5.1) mEq/L Chloride 102 (98-107) mEq/L Carbon Dioxide 29 (21-32) mEq/L Anion Gap 12.7 (5-15) BUN 6 L (7-18) mg/dL Creatinine 0.8 (0.55-1.02) mg/dL Est Cr Clr Drug Dosing 42.97 mL/min Estimated GFR (MDRD) > 60 (>60) mL/min BUN/Creatinine Ratio 7.5 L (14-18) Glucose 92 (83-115) mg/dL POC Glucose (83-110) mg/dL Calcium 9.7 (8.5-10.1) mg/dL Total Bilirubin (0.2-1.0) mg/dL AST (15-37) U/L ALT (14-59) U/L Alkaline Phosphatase (46-116) U/L Total Protein (6.4-8.2) g/dl Albumin (3.4-5.0) g/dl Globulin gm/dL Albumin/Globulin Ratio (1-2) Med Orders - Current: Current Medications Acetaminophen (Acetaminophen 325 Mg Tab) 650 mg PO Q6H PRN PRN Reason: Pain (Mild 1-3)/fever Last Admin: 05/22/20 11:38 Dose: 650 mg Documented by: Albuterol/Ipratropium (Albuterol/Ipratropium 3.0-0.5 Mg/3 Ml Neb Soln) 3 ml NEB Q4H PRN PRN Reason: Shortness Of Breath/wheezing Aspirin (Aspirin 81 Mg Tab.Ec) 81 mg PO BEDTIME [facility] Last Admin: 05/22/20 21:54 Dose: 81 mg Documented by: Calcium Carbonate/Glycine (Calcium Carbonate 600 Mg Tab) 1,200 mg PO BID [facility] Last Admin: 05/23/20 08:09 Dose: 1,200 mg Documented by: Clonidine HCl (Clonidine 0.1 Mg Tab) 0.2 mg PO BEDTIME [facility] Last Admin: 05/22/20 21:53 Dose: 0.2 mg Documented by: Cyanocobalamin (Cyanocobalamin (Vitamin B12) 1,000 Mcg Tab) 1,000 mcg PO DAILY@1200 [facility] Last Admin: 05/23/20 11:53 Dose: 1,000 mcg Documented by: Heparin Sodium (Porcine) (Heparin Sodium 5,000 Units/Ml Vial) 5,000 units SUBCUT Q8H [facility] Last Admin: 05/23/20 13:06 Dose: 5,000 units Documented by: Hydralazine HCl (Hydralazine 20 Mg/Ml Sdv) 10 mg IVPUSH Q4H PRN PRN Reason: Hypertension Insulin Human Lispro (Insulin Lispro 100 Unit/Ml) 0 unit SUBCUT QIDACANDBED [facility]; Protocol Last Admin: 05/23/20 13:06 Dose: 4 unit Documented by: Ondansetron HCl (Ondansetron 4 Mg/2 Ml Sdv) 4 mg IVPUSH Q6H PRN PRN Reason: Nausea/Vomiting Potassium Chloride (Potassium Chloride 20 Meq Tab.Er) 20 meq PO TID [facility] Stop: 05/23/20 21:01 Last Admin: 05/23/20 08:47 Dose: 20 meq Documented by: Sodium Chloride (Sodium Chloride 0.9% 10 Ml Syringe) 10 ml FLUSH ASDIRECTED PRN PRN Reason: Keep Vein Open Last Admin: 05/21/20 16:04 Dose: 10 ml Documented by: Tramadol HCl (Tramadol 50 Mg Tab) 50 mg PO Q4H PRN PRN Reason: Pain (moderate 4-6) Discontinued Medications Diatrizoate Meglum/Diatrizoate Sod (Diatrizoate Meglumine/Diatrizoate Sodium 37% 120 Ml Bottle) 120 ml PO ONETIME ONE Stop: 05/21/20 17:37 Last Admin: 05/21/20 17:37 Dose: 120 ml Documented by: Sodium Chloride (Normal Saline) 1,000 mls @ 999 mls/hr IV ONETIME ONE Stop: 05/21/20 16:45 Last Admin: 05/21/20 16:04 Dose: 999 mls/hr Documented by: Sodium Chloride (Normal Saline) 1,000 mls @ 65 mls/hr IV ASDIRECTED [facility] Last Admin: 05/21/20 21:29 Dose: 65 mls/hr Documented by: Ondansetron HCl 4 mg/ Sodium (Chloride) 52 mls @ 100 mls/hr IV Q6H PRN PRN Reason: Nausea/Vomiting Potassium Chloride/Sodium Chloride (Normal Saline With 20 Meq Kcl) 1,000 mls @ 65 mls/hr IV ASDIRECTED [facility] Last Admin: 05/22/20 08:52 Dose: 65 mls/hr Documented by: Potassium Chloride 10 meq/ (Premix) 100 mls @ 100 mls/hr IV Q1H [facility] Stop: 05/23/20 12:29 Last Admin: 05/23/20 12:56 Dose: 100 mls/hr Documented by: Iopamidol (Iopamidol 612 Mg/Ml 100 Ml Bottle) 100 ml IVPUSH ONETIME ONE Stop: 05/21/20 17:37 Last Admin: 05/21/20 17:38 Dose: 100 ml Documented by: Morphine Sulfate (Morphine 2 Mg/Ml Syringe) 2 mg IVPUSH Q4H PRN PRN Reason: Pain (severe 7-10) Stop: 05/22/20 19:09 Ondansetron HCl (Ondansetron 4 Mg/2 Ml Sdv) 4 mg IVPUSH ONETIME ONE Stop: 05/21/20 15:46 Last Admin: 05/21/20 16:04 Dose: 4 mg Documented by: Ondansetron HCl (Ondansetron 4 Mg/2 Ml Sdv) 2 mg IV Q4H PRN PRN Reason: Pain (severe 7-10) Sodium Chloride (Sodium Chloride 0.9% 10 Ml Syringe) 10 ml FLUSH ASDIRECTED [facility] Last Admin: 05/21/20 17:38 Dose: 10 ml Documented by: - Exam Physical Findings Comments:: General: Alert, Oriented, Cooperative, Mild Distress (due to abdominal pain) HEENT: Conjunctiva Clear, EOMI, Pupils Equal, Pupils Reactive, PERRLA Neck: Supple, Trachea Midline, Full Range of Motion Lungs: Clear to Auscultation, Normal Respiratory Effort GI/Abdominal Exam: Soft, No Organomegaly, Tender (disappeared), Extremities: Normal Range of Motion, Non-Tender, No Pedal Edema Skin: Warm, Dry, Intact Neurological: Reflexes Equal Bilateral, Strength Equal Bilateral, Normal Speech, Normal Tone, Sensation Intact Neuro Extensive - Mental Status: Alert, Oriented x3, Normal Mood/Affect Neuro Extensive - Motor, Sensory, Reflexes: CN II-XII Intact, Normal Reflexes Psychiatric: Alert, Normal Affect, Normal Mood
--- NOTE | 2020-05-26 15:41 | PCM.SN.2 ---
#1 Interpretation EKG Date: 05/21/20 Time: 19:37 Rhythm: NSR Rate (Beats/Min): 96 [place]: Normal P-Wave: Present QRS: Normal ST-T: Normal QT: Normal
== END 2020-05-23 15:57 | disposition home or self-care (01) | DRG 390 ==
LOC: JD.ED 15:23 → JD.MS 18:28
PROVIDERS: ADMIT Internal Medicine; ATTEND Internal Medicine
DX: K56.600 Partial intestinal obstruction, unspecified as to cause (principal); E11.9 Type 2 diabetes mellitus without complications; D64.9 Anemia, unspecified; N20.0 Calculus of kidney; J00 Acute nasopharyngitis [common cold]; K50.90 Crohn's disease, unspecified, without complications; Z79.899 Other long term (current) drug therapy; H54.7 Unspecified visual loss; G89.29 Other chronic pain; R51.9 Headache, unspecified; H91.90 Unspecified hearing loss, unspecified ear; E78.00 Pure hypercholesterolemia, unspecified; I10 Essential (primary) hypertension; E53.8 Deficiency of other specified B group vitamins; E61.1 Iron deficiency; M19.90 Unspecified osteoarthritis, unspecified site; M81.0 Age-related osteoporosis without current pathological fracture; F41.9 Anxiety disorder, unspecified; F32.9 Major depressive disorder, single episode, unspecified; R74.8 Abnormal levels of other serum enzymes; E87.8 Other disorders of electrolyte and fluid balance, not elsewhere classified; Z88.0 Allergy status to penicillin; Z91.018 Allergy to other foods; Z79.82 Long term (current) use of aspirin; Z79.84 Long term (current) use of oral hypoglycemic drugs; Z86.718 Personal history of other venous thrombosis and embolism; Z87.440 Personal history of urinary (tract) infections; Z90.49 Acquired absence of other specified parts of digestive tract; Z87.19 Personal history of other diseases of the digestive system; Z79.01 Long term (current) use of anticoagulants; Z20.822 Contact with and (suspected) exposure to COVID-19; R05 Cough; R10.9 Unspecified abdominal pain
CPT/HCPCS: 36415 ×4; 43752; 71046; 74019; 74177; 80053; 81001; 83690; 85025; 86140; 87502; 96374; 99285; J2405; J7030; Q9963; Q9967; U0002; 71045; 71045-26; 74018; 74018-26; 80048; 82962; 83735; 84100; 84484; 85610; 93005; 94760; 97110-GP; 97116-GP; 97161-GP; 97165-GO; 97530-GP; 97535-GO; 99213; 99222; 99232; 99239; A9270-GY; J1644; J1815-GY; J3480

== ENCOUNTER 2021-01-30 14:47 | Inpatient (IN) | payer MEDICARE, OTHER ==
--- NOTE | 2021-01-30 15:18 | EDM.PDOC ---
ED HPI GENERAL MEDICAL PROBLEM - General Chief Complaint: Lower Extremity Injury/Pain Stated Complaint: SENT FROM CLINIC/RAPID RESPONSE Time Seen by Provider: 01/30/21 14:54 Source of Information: Reports: Patient, RN Notes Reviewed History Limitations: Reports: No Limitations - History of Present Illness INITIAL COMMENTS - FREE TEXT/NARRATIVE: She is a 75-year-old female who presents to the ER for evaluation of her left hip pain. Patient was involved in a rapid response called at the clinic entrance. Patient states she was coming to get her routine labs drawn, and was in the revolving door, and got her foot caught and ended up tripping/falling and landing on the ground. States she is having some left hip pain, and was having some difficulties bearing weight on her left leg. She comes to the ER for evaluation to make sure that there are no broken bones or otherwise. Not complaining of any pain otherwise down the leg, or into the foot. Patient denies any other sick-like symptoms, fever/chills, cough/shortness of breath, nausea/vomiting/diarrhea. Patient did not have any sort of lightheaded or dizziness feelings and that precipitated the fall. - Related Data Allergies Allergy/AdvReac Type Severity Reaction Status Date / Time Penicillins Allergy Cannot Verified 01/30/21 14:54 Remember pistachio nut Allergy Cannot Verified 01/30/21 14:54 Remember Home Meds: Home Meds Aspirin 81 mg PO BEDTIME 08/15/15 [History] Calcium Carbonate [Calcium] 1,200 mg PO BID 08/15/15 [History] Cyanocobalamin (Vitamin B-12) [B-12] 1,000 mg PO 1200 08/15/15 [History] Ferrous Sulfate [Iron] 325 mg PO BID 08/15/15 [History] Folic Acid 1,000 mcg PO DAILY 08/15/15 [History] Furosemide 1 tab PO DAILY 08/15/15 [History] Potassium Chloride [Klor-Con 10] 10 meq PO TID 08/15/15 [History] cloNIDine [Catapres] 0.2 mg PO BEDTIME 08/15/15 [History] metFORMIN HCl [Metformin HCl] 1,000 mg PO BID 08/15/15 [History] Pnv No.121/Iron/Folic Acid [ Multivitamin Tablet] 1 tab PO DAILY 05/26/18 [History] Ondansetron [Zofran ODT] 4 mg .XX PRN 05/22/20 [History] atorvaSTATin [Lipitor] 1 tab PO DAILY 05/22/20 [History] Insulin Lispro [Humalog] See Protocol SUBCUT QIDACANDBED #10 ml 05/23/20 [Rx] Past Medical History HEENT History: Reports: Hard of Hearing, Impaired Vision Other HEENT History: wears eyeglasses. Cardiovascular History: Reports: Blood Clots/VTE/DVT, High Cholesterol, Hypertension Respiratory History: Reports: Other (See Below) Other Respiratory History: allergies. Gastrointestinal History: Reports: Bowel Obstruction, GERD, Other (See Below) Other Gastrointestinal History: Crohns Genitourinary History: Reports: Renal Calculus, UTI, Recurrent [employer] History: Reports: Musculoskeletal History: Reports: Osteoarthritis, Osteoporosis Neurological History: Reports: Headaches, Chronic Other Neuro History: headaches Psychiatric History: Reports: Anxiety, Depression Endocrine/Metabolic History: Reports: Diabetes, Type II Hematologic History: Reports: Anemia, B12 Deficiency, Iron Deficiency - Infectious Disease History Infectious Disease History: Reports: Measles - Past Surgical History HEENT Surgical History: Reports: None Cardiovascular Surgical History: Reports: None GI Surgical History: Reports: Appendectomy, Cholecystectomy, Colonoscopy Female Surgical History: Reports: None Endocrine Surgical History: Reports: None Social & Family History - Family History Family Medical History: No Pertinent Family History Cardiac: Reports: Hypertension, [place] Respiratory: Reports: PE GI: Reports: Inflammatory Bowel Disease : Reports: Renal Calculus Neurological: Reports: CVA, Dementia Endocrine/Metabolic: Reports: Diabetes, type II Hematologic: Reports: Other (See Below) Oncologic: Reports: Breast, Leukemia, Liver - Tobacco Use Tobacco Use Status *Q: Never Tobacco User - Caffeine Use Caffeine Use: Reports: Coffee, Soda Other Caffeine Use: rare - Recreational Drug Use Recreational Drug Use: No - Living Situation & Occupation Living situation: Reports: Occupation: Retired Review of Systems - Review of Systems Review Of Systems: Comprehensive ROS is negative, except as noted in HPI. ED EXAM, GENERAL - Physical Exam Exam: See Below Exam Limited By: No Limitations General Appearance: Alert, WD/WN, No Apparent Distress Respiratory/Chest: No Respiratory Distress, Lungs Clear, Normal Breath Sounds, No Accessory Muscle Use, Chest Non-Tender Cardiovascular: Normal Peripheral Pulses, Regular Rate, Rhythm, No Edema GI/Abdominal: Normal Bowel Sounds, Soft, Non-Tender, No Distention, No Mass Extremities: Normal Inspection, Normal Capillary Refill Neurological: Alert, Oriented, Normal Cognition, No Motor/Sensory Deficits Psychiatric: Normal Affect, Normal Mood Skin Exam: Warm, Dry, Intact, Normal Color, No Rash Course - Vital Signs Last Recorded V/S: Last Vital Signs Temp 96.5 F L 01/30/21 14:52 Pulse 69 01/30/21 14:52 Resp 16 01/30/21 14:52 BP 145/84 H 01/30/21 14:52 Pulse Ox 96 01/30/21 14:52 - Orders/Labs/Meds Orders: Active Orders 24 hr Category Date Time Status Hip Min 2V or 3V w Pelvis Lt [CR] Stat Exams 01/30/21 14:59 Ordered Hip wo Cont Lt [CT] Stat Exams 01/30/21 16:14 Ordered COVID-19/FLU A+B [[facility]LEC] Stat Lab 01/30/21 18:42 Ordered DME for Discharge [COMM] Routine Oth 01/30/21 18:07 Ordered Meds: Medications Discontinued Medications Generic Name Dose Route Start Last Admin Trade Name Lamineq PRN Reason Stop Dose Admin Hydromorphone HCl 0.5 mg 01/30/21 15:36 01/30/21 17:01 Hydromorphone 0.5 Mg/0.5 Ml Syringe IM 01/30/21 15:37 0.5 mg ONETIME ONE Administration - Re-Assessments/Exams Free Text/Narrative Re-Assessment/Exam: 01/30/21 15:18 Patient presents to the ER for evaluation of her left hip pain, go ahead and get x-rays for evaluation. 01/30/21 16:18 X-rays were performed, reviewed by myself I do not see any obvious fractures or otherwise however the patient still unable to bear much weight on the leg at all. I did reevaluate her to make sure it was not pain further down the leg and she states that it is all in her hip. I will go ahead and get a CT of the area to make sure not missing any occult fractures in nature. Patient verbalized understanding of this plan. I did order 0.5 mg IM Dilaudid for pain management if the patient would like this. 01/30/21 18:13 Patient does have a slightly comminuted fracture of the left greater tuberosity of her left femur. It is almost within near anatomic position. I did consult Dr. Alaniz, and he does state that the patient can do weightbearing as tolerated with a walker; if she cannot tolerate the pain that she should be set up for hospitalization for pain management for possible rehab placement. We will go ahead and get the patient up to see if she can walk with a walker. 01/30/21 18:48 Patient was ambulated at the bedside, notes she could only take 2 steps and was not able to go any further. Patient will necessitate hospitalization for pain management and rehab placement at this time. I did go over these findings with Dr. Fritz and he did ultimately accept for admission. Covid screen is still pending. Departure - Departure Time of Disposition: 18:48 Disposition: Admitted As Inpatient 64 Condition: Good Clinical Impression: Closed left hip fracture Qualifiers: Encounter type: initial encounter Qualified Code(s): S72.002A - Fracture of unspecified part of neck of left femur, initial encounter for closed fracture - Discharge Information *PRESCRIPTION DRUG MONITORING PROGRAM REVIEWED*: No *COPY OF PRESCRIPTION DRUG MONITORING REPORT IN PATIENT GAVIN: No Forms: ED Department Discharge Sepsis Event Note (ED) - Evaluation Sepsis Screening Result: No Definite Risk - Focused Exam Vital Signs: Vital Signs Temp Pulse Resp BP Pulse Ox 01/30/21 14:52 96.5 F L 69 16 145/84 H 96 - My Orders Last 24 Hours: My Active Orders 01/30/21 14:59 Hip Min 2V or 3V w Pelvis Lt [CR] Stat 01/30/21 16:14 Hip wo Cont Lt [CT] Stat 01/30/21 18:07 DME for Discharge [COMM] Routine 01/30/21 18:42 COVID-19/FLU A+B [[facility]LEC] Stat - Assessment/Plan Last 24 Hours: My Active Orders 01/30/21 14:59 Hip Min 2V or 3V w Pelvis Lt [CR] Stat 01/30/21 16:14 Hip wo Cont Lt [CT] Stat 01/30/21 18:07 DME for Discharge [COMM] Routine 01/30/21 18:42 COVID-19/FLU A+B [MOLEC] Stat
[2021-01-30] MEDS ORDERED: HYDROmorphone 0.5 MG/0.5 ML Syringe IM ONE (15:36)
[2021-01-30 19:29] LABS: CORONAVIRUS COVID-19 NAA NEGATIVE (NEGATIVE)
[2021-01-30] MEDS ORDERED: HYDROmorphone 0.5 MG/0.5 ML Syringe IVPUSH PRN (20:20)
[2021-01-30] MEDS ORDERED: Ondansetron 4 MG/2 ML SDV IV PRN (20:20)
--- NOTE | 2021-01-30 21:04 | PCM.HP.2 ---
H&P History of Present Illness - General Date of Service: 01/30/21 Admit Problem/Dx: Admission Diagnosis/Problem Admission Diagnosis/Problem Hip fracture due to osteoporosis - History of Present Illness Initial Comments - Free Text/Narative: 75-year-old female with history of diabetes, Crohn's disease, hyperlipidemia, hypertension, factor V Leiden mutation with history of DVT, Subclinical hypothyroidism, anemia, degenerative joint disease of the lumbar spine was walking into the clinic today when her left foot got caught on the revolving doors as they closed. Unfortunately, she fell and sustained a slightly comminuted fracture of the left greater tuberosity of her left femur. In the emergency department Dr. Alaniz was consulted who recommended patient can do weightbearing as tolerated with a walker. Unfortunately she could not manage the pain in the emergency department so she was admitted to the hospital for pain management and physical therapy. Patient states that at rest her pain is 5 out of 10 and it is severe and sharp with walking at 10 out of 10. Walking or any weightbearing is much worse than at rest which makes it better. - Related Data Allergies/Adverse Reactions: Allergies Allergy/AdvReac Type Severity Reaction Status Date / Time Penicillins Allergy Cannot Verified 01/30/21 20:44 Remember pistachio nut Allergy Cannot Verified 01/30/21 20:44 Remember Home Medications: Home Meds Aspirin 81 mg PO BEDTIME 08/15/15 [History] Calcium Carbonate [Calcium] 1,200 mg PO BID 08/15/15 [History] Cyanocobalamin (Vitamin B-12) [B-12] 1,000 mg PO DAILY 08/15/15 [History] Ferrous Sulfate [Iron] 325 mg PO TID 08/15/15 [History] Folic Acid 1,000 mcg PO DAILY 08/15/15 [History] Furosemide 1 tab PO DAILY 08/15/15 [History] Potassium Chloride [Klor-Con 10] 10 meq PO TID 08/15/15 [History] cloNIDine [Catapres] 0.2 mg PO BEDTIME 08/15/15 [History] metFORMIN HCl [Metformin HCl] 1,000 mg PO BID 08/15/15 [History] Pnv No.121/Iron/Folic Acid [ Multivitamin Tablet] 1 tab PO DAILY 05/26/18 [History] Ondansetron [Zofran ODT] 4 mg PO Q4HR PRN 05/22/20 [History] atorvaSTATin [Lipitor] 1 tab PO DAILY 05/22/20 [History] Past Medical History HEENT History: Reports: Hard of Hearing, Impaired Vision Other HEENT History: wears eyeglasses. Cardiovascular History: Reports: Blood Clots/VTE/DVT, High Cholesterol, Hypertension Respiratory History: Reports: Other (See Below) Other Respiratory History: allergies. Gastrointestinal History: Reports: Bowel Obstruction, GERD, Other (See Below) Other Gastrointestinal History: Crohns Genitourinary History: Reports: Renal Calculus, UTI, Recurrent FOREIGN AGENT History: Reports: Musculoskeletal History: Reports: Osteoarthritis, Osteoporosis Neurological History: Reports: Headaches, Chronic Other Neuro History: headaches Psychiatric History: Reports: Anxiety, Depression Endocrine/Metabolic History: Reports: Diabetes, Type II Hematologic History: Reports: Anemia, B12 Deficiency, Iron Deficiency - Infectious Disease History Infectious Disease History: Reports: Measles - Past Surgical History HEENT Surgical History: Reports: None Cardiovascular Surgical History: Reports: None GI Surgical History: Reports: Appendectomy, Cholecystectomy, Colonoscopy Female Surgical History: Reports: None Endocrine Surgical History: Reports: None Social & Family History - Family History Family Medical History: No Pertinent Family History Cardiac: Reports: Hypertension, [place] Respiratory: Reports: PE GI: Reports: Inflammatory Bowel Disease : Reports: Renal Calculus Neurological: Reports: CVA, Dementia Endocrine/Metabolic: Reports: Diabetes, type II Hematologic: Reports: Other (See Below) Oncologic: Reports: Breast, Leukemia, Liver - Tobacco Use Tobacco Use Status *Q: Never Tobacco User - Caffeine Use Caffeine Use: Reports: Coffee, Soda Other Caffeine Use: rare - Recreational Drug Use Recreational Drug Use: No - Living Situation & Occupation Living situation: Reports: Occupation: Retired H&P Review of Systems - Review of Systems: Review Of Systems: Comprehensive ROS is negative, except as noted in HPI. Exam - Exam Exam: See Below - Vital Signs Vital Signs: Last Vital Signs Temp 99.3 F 01/30/21 20:13 Pulse 84 01/30/21 20:13 Resp 20 01/30/21 20:13 BP 144/71 H 01/30/21 20:14 Pulse Ox 98 01/30/21 20:13 Weight: 130 lb - Exam Quality Assessment: No: Supplemental Oxygen General: Alert, Oriented, 4 HEENT: Conjunctiva Clear, Hearing Intact, Mucosa Moist & [place], Normal Nasal Septum Neck: Supple, Trachea Midline, 2 Lungs: Clear to Auscultation, Normal Respiratory Effort Cardiovascular: Regular Rate, Regular Rhythm GI/Abdominal Exam: Normal Bowel Sounds, Soft, Non-Tender, No Organomegaly, No Distention, No Abnormal Bruit, No Mass Extremities: Normal Range of Motion, Non-Tender, No Pedal Edema, Normal Capillary Refill, Leg Pain (Left) Skin: Warm, Dry, Intact Neuro Extensive - Mental Status: Alert, Oriented x3, Normal Mood/Affect, Normal Cognition, Memory Intact Psychiatric: Alert, Normal Affect, Normal Mood - Patient Data Lab Results Last 24 hrs: Laboratory Results - last 24 hr 01/30/21 01/30/21 Range/Units 18:46 20:33 POC Glucose 109 H (70-99) mg/dL Influenza Type A RNA Negative (NEGATIVE) Influenza Type B RNA Negative (NEGATIVE) SARS-CoV-2 RNA ([place]) Negative (NEGATIVE) Result Diagrams: 01/31/21 04:33 01/31/21 04:33 Sepsis Event Note - Evaluation Sepsis Screening Result: No Definite Risk - Focused Exam Vital Signs: Vital Signs Temp Temp Pulse Pulse Resp BP BP 01/30/21 20:14 144/71 H 01/30/21 20:13 99.3 F 84 20 151/57 H 01/30/21 14:52 96.5 F L 69 16 145/84 H Pulse Ox 01/30/21 20:14 01/30/21 20:13 98 01/30/21 14:52 96 - Problem List (1) Closed left hip fracture SNOMED Code(s): 957883166 ICD Code: S72.002A - FRACTURE OF UNSP PART OF NECK OF LEFT FEMUR, INIT Status: Acute Current Visit: Yes Qualifiers: Encounter type: initial encounter Qualified Code(s): S72.002A - Fracture of unspecified part of neck of left femur, initial encounter for closed fracture (2) Pain management SNOMED Code(s): 520291076 ICD Code: R52 - PAIN, UNSPECIFIED Status: Acute Current Visit: Yes (3) Type 2 diabetes mellitus SNOMED Code(s): 87538566 ICD Code: E11.9 - TYPE 2 DIABETES MELLITUS WITHOUT COMPLICATIONS Status: Acute Current Visit: Yes (4) Crohns disease of small intestine SNOMED Code(s): 11818417 ICD Code: K50.00 - CROHN'S DISEASE OF SMALL INTESTINE WITHOUT COMPLICATIONS Status: Acute Priority: High Current Visit: No Problem List Initiated/Reviewed/Updated: Yes Orders Last 24hrs: Active Orders 24 hr Category Date Time Status Admission Status [Patient Status] [ADT] Routine ADT 01/30/21 18:59 Active Blood Glucose Check, Bedside [RC] WITHMEALSANDBED Care 01/30/21 20:27 Active Oxygen Therapy [RC] PRN Care 01/30/21 20:20 Active Up With Assistance [RC] ASDIRECTED Care 01/30/21 20:20 Active VTE/DVT Education [RC] PER UNIT ROUTINE Care 01/30/21 20:20 Active Vital Signs [RC] Q4H Care 01/30/21 20:20 Active PT Evaluation and Treatment [CONS] Routine Cons 01/30/21 20:20 Active Consistent Carbohydrate Diet [DIET] Diet 01/30/21 Dinner Active Hip Min 2V or 3V w Pelvis Lt [CR] Stat Exams 01/30/21 14:59 Taken Hip wo Cont Lt [CT] Stat Exams 01/30/21 16:14 Taken CBC WITH AUTO DIFF [HEME] AM Lab 01/31/21 05:11 Ordered COMPREHENSIVE METABOLIC PN,CMP [CHEM] AM Lab 01/31/21 05:11 Ordered GLYCOSYLATED HEMOGLOBIN,HGBA1C [CHEM] AM Lab 01/31/21 05:11 Ordered MAGNESIUM [CHEM] AM Lab 01/31/21 05:11 Ordered TSH [CHEM] AM Lab 01/31/21 05:11 Ordered Acetaminophen [TylenoL] Med 01/30/21 20:20 Active 650 mg PO Q4H PRN Enoxaparin [Lovenox] Med 01/31/21 09:00 Pending 40 mg SUBCUT DAILY HYDROmorphone [Dilaudid] Med 01/30/21 20:20 Active 0.5 mg IVPUSH Q2H PRN Insulin Lispro [HumaLOG] Med 01/30/21 22:00 Active See Protocol SUBCUT QIDACANDBED Ondansetron [Zofran] Med 01/30/21 20:20 Active 4 mg IV Q6H PRN oxyCODONE Med 01/30/21 20:20 Active 5 mg PO Q4H PRN DME for Discharge [COMM] Routine Oth 01/30/21 18:07 Ordered Resuscitation Status Routine Resus Stat 01/30/21 20:20 Ordered Medication Orders Acetaminophen (Acetaminophen 325 Mg Tab) 650 mg PO Q4H PRN PRN Reason: Pain (Mild 1-3)/fever Enoxaparin Sodium (Enoxaparin 40 Mg/0.4 Ml Syringe) 40 mg SUBCUT DAILY HIRAL Hydromorphone HCl (Hydromorphone 0.5 Mg/0.5 Ml Syringe) 0.5 mg IVPUSH Q2H PRN PRN Reason: Pain (severe 7-10) Insulin Human Lispro (Insulin Lispro 100 Unit/Ml 3 Ml Kwikpen) 0 unit SUBCUT QIDACANDBED HIRAL; Protocol Ondansetron HCl (Ondansetron 4 Mg/2 Ml Sdv) 4 mg IV Q6H PRN PRN Reason: Nausea/Vomiting Oxycodone HCl (Oxycodone 5 Mg Tab) 5 mg PO Q4H PRN PRN Reason: Pain (moderate 4-6) Assessment/Plan Comment:: Slightly comminuted fracture left greater tuberosity of the left femur Unable to discharge from hospital emergency department secondary to pain * Fracture occurred at the clinic entrance when walking through the revolving doors. * CT scan showed the fracture * Given Dilaudid 0.5 mg IV in the emergency department for pain control * Admitted for pain management and physical therapy. Type 2 diabetes * Unknown hemoglobin A1c * On Metformin Crohn's disease * History of small bowel obstruction * No current complaints * No current medications History of anemia likely secondary to Crohn's disease * Currently on iron supplementation 3 times daily Plan * Admit to medical floor for pain management and possible jail facility placement * Start Tylenol, oxycodone, and Dilaudid as needed * Restart home meds * Decrease iron supplementation to once a day since three times a day has no be nefit over once a day dosing. * Physical therapy consult * technical services analyst consult on Tuesday * VTE prophylaxis with enoxaparin * CODE STATUS: DNR/DNI - Mortality Measure Prognosis:: Good
[2021-01-30] MEDS: oxyCODONE 5 MG Tab PO PRN (21:47)
[2021-01-30] MEDS: Acetaminophen 325 MG Tab PO PRN (21:47)
[2021-01-30] MEDS: Insulin Lispro 100 Unit/ML 3 ML KwikPen SUBCUT SCH (22:00)
[2021-01-31] MEDS: Acetaminophen 325 MG Tab PO PRN (02:25)
[2021-01-31] MEDS: oxyCODONE 5 MG Tab PO PRN ×4 (02:26→21:43)
[2021-01-31 06:46] LABS: HEMOGLOBIN A1C 6.7 %
[2021-01-31] MEDS: Insulin Lispro 100 Unit/ML 3 ML KwikPen SUBCUT SCH ×4 (07:51→21:03)
[2021-01-31] MEDS: Folic Acid 1 MG Tab PO SCH (09:51)
[2021-01-31] MEDS: metFORMIN 500 MG Tab PO SCH ×2 (09:52→21:01)
[2021-01-31] MEDS: Magnesium Oxide 400 MG Tab PO SCH ×2 (09:53→21:02)
[2021-01-31] MEDS: Furosemide 40 MG Tab PO SCH (09:54)
[2021-01-31] MEDS: Ferrous Sulfate 324 MG Tab.EC PO SCH ×3 (09:54→19:15)
[2021-01-31] MEDS: atorvaSTATin 20 MG Tab PO SCH (09:55)
[2021-01-31] MEDS: Potassium Chloride 10 MEQ Tab.ER PO SCH ×3 (09:55→21:02)
[2021-01-31] MEDS: Enoxaparin 40 MG/0.4 ML Syringe SUBCUT SCH (09:56)
[2021-01-31] MEDS ORDERED: Cyanocobalamin (Vitamin B12) 1,000 MCG Tab PO SCH ×3 (12:00→12:05)
[2021-01-31] MEDS ORDERED: Ferrous Sulfate 324 MG Tab.EC PO ONE (12:15)
[2021-01-31] MEDS: Acetaminophen 325 MG Tab PO SCH ×2 (12:16→19:00)
[2021-01-31] MEDS: Cyanocobalamin (Vitamin B12) 1,000 MCG Tab PO SCH (12:16)
--- NOTE | 2021-01-31 12:55 | PCM.PN ---
- General Info Date of Service: 01/31/21 Admission Dx/Problem (Free Text): Admission Diagnosis/Problem Admission Diagnosis/Problem Hip fracture due to osteoporosis Subjective Update: Patient complains of more pain this morning. She was given oxycodone 5 mg little over 1 hour ago and still is having moderate pain. Functional Status: Denies: Pain Controlled - Review of Systems General: Reports: No Symptoms Pulmonary: Reports: No Symptoms Cardiovascular: Reports: No Symptoms Gastrointestinal: Reports: No Symptoms Musculoskeletal: Reports: Leg Pain, Joint Pain - Patient Data Vitals - Most Recent: Last Vital Signs Temp 97.5 F 01/31/21 04:21 Pulse 66 01/31/21 04:21 Resp 16 01/31/21 04:21 BP 135/99 H 01/31/21 04:21 Pulse Ox 96 01/31/21 04:21 Weight - Most Recent: 119 lb 5 oz I&O - Last 24 Hours: Intake & Output 01/30/21 01/31/21 01/31/21 22:59 06:59 14:59 Intake Total 0 350 Output Total 0 300 Balance 0 50 Lab Results Last 24 Hours: Laboratory Results - last 24 hr 01/30/21 01/30/21 01/31/21 Range/Units 18:46 20:33 04:33 WBC 7.72 (3.98-10.04) K/mm3 RBC 4.00 (3.98-5.22) M/mm3 Hgb 10.3 L (11.2-15.7) gm/dl Hct 33.3 L (34.1-44.9) % MCV 83.3 (79.4-94.8) fl MCH 25.8 (25.6-32.2) pg MCHC 30.9 L (32.2-35.5) g/dl RDW Std Deviation 47.6 H (36.4-46.3) fL Plt Count 477 H (182-369) K/mm3 MPV 8.5 L (9.4-12.3) fl Neut % (Auto) 51.2 (34.0-71.1) % Lymph % (Auto) 31.9 (19.3-51.7) % Dyer % (Auto) 12.4 (4.7-12.5) % Eos % (Auto) 3.8 (0.7-5.8) Baso % (Auto) 0.4 (0.1-1.2) % Neut # (Auto) 3.96 (1.56-6.13) K/mm3 Lymph # (Auto) 2.46 (1.18-3.74) K/mm3 [place] # (Auto) 0.96 H (0.24-0.36) K/mm3 Eos # (Auto) 0.29 (0.04-0.36) K/mm3 Baso # (Auto) 0.03 (0.01-0.08) K/mm3 Sodium (136-145) mEq/L Potassium (3.5-5.1) mEq/L Chloride (98-107) mEq/L Carbon Dioxide (21-32) mEq/L Anion Gap (5-15) BUN (7-18) mg/dL Creatinine (0.55-1.02) mg/dL Est Cr Clr Drug Dosing mL/min Estimated GFR (MDRD) (>60) mL/min BUN/Creatinine Ratio (14-18) Glucose (70-99) mg/dL POC Glucose 109 H (70-99) mg/dL Hemoglobin A1c ( - 5.6) % Calcium (8.5-10.1) mg/dL Magnesium (1.8-2.4) mg/dL Total Bilirubin (0.2-1.0) mg/dL AST (15-37) U/L ALT (14-59) U/L Alkaline Phosphatase (46-116) U/L Total Protein (6.4-8.2) g/dl Albumin (3.4-5.0) g/dl Globulin gm/dL Albumin/Globulin Ratio (1-2) TSH 3rd Generation (0.358-3.74) uIU/mL Influenza Type A RNA Negative (NEGATIVE) Influenza Type B RNA Negative (NEGATIVE) SARS-CoV-2 RNA ([place]) Negative (NEGATIVE) 01/31/21 01/31/21 01/31/21 Range/Units 04:33 04:33 07:06 WBC (3.98-10.04) K/mm3 RBC (3.98-5.22) M/mm3 Hgb (11.2-15.7) gm/dl Hct (34.1-44.9) % MCV (79.4-94.8) fl MCH (25.6-32.2) pg MCHC (32.2-35.5) g/dl RDW Std Deviation (36.4-46.3) fL Plt Count (182-369) K/mm3 MPV (9.4-12.3) fl Neut % (Auto) (34.0-71.1) % Lymph % (Auto) (19.3-51.7) % Dyer % (Auto) (4.7-12.5) % Eos % (Auto) (0.7-5.8) Baso % (Auto) (0.1-1.2) % Neut # (Auto) (1.56-6.13) K/mm3 Lymph # (Auto) (1.18-3.74) K/mm3 [place]yer # (Auto) (0.24-0.36) K/mm3 Eos # (Auto) (0.04-0.36) K/mm3 Baso # (Auto) (0.01-0.08) K/mm3 Sodium 141 (136-145) mEq/L Potassium 4.2 (3.5-5.1) mEq/L Chloride 105 (98-107) mEq/L Carbon Dioxide 27 (21-32) mEq/L Anion Gap 13.2 (5-15) BUN 7 (7-18) mg/dL Creatinine 0.7 (0.55-1.02) mg/dL Est Cr Clr Drug Dosing 48.34 mL/min Estimated GFR (MDRD) > 60 (>60) mL/min BUN/Creatinine Ratio 10.0 L (14-18) Glucose 107 H (70-99) mg/dL POC Glucose 101 H (70-99) mg/dL Hemoglobin A1c 6.7 H ( - 5.6) % Calcium 8.8 (8.5-10.1) mg/dL Magnesium 1.7 L (1.8-2.4) mg/dL Total Bilirubin 0.2 (0.2-1.0) mg/dL AST 31 (15-37) U/L ALT 48 (14-59) U/L Alkaline Phosphatase 139 H (46-116) U/L Total Protein 6.4 (6.4-8.2) g/dl Albumin 2.5 L (3.4-5.0) g/dl Globulin 3.9 gm/dL Albumin/Globulin Ratio 0.6 L (1-2) TSH 3rd Generation 3.182 (0.358-3.74) uIU/mL Influenza Type A RNA (NEGATIVE) Influenza Type B RNA (NEGATIVE) SARS-CoV-2 RNA ([place]) (NEGATIVE) 01/31/21 Range/Units 11:11 WBC (3.98-10.04) K/mm3 RBC (3.98-5.22) M/mm3 Hgb (11.2-15.7) gm/dl Hct (34.1-44.9) % MCV (79.4-94.8) fl MCH (25.6-32.2) pg MCHC (32.2-35.5) g/dl RDW Std Deviation (36.4-46.3) fL Plt Count (182-369) K/mm3 MPV (9.4-12.3) fl Neut % (Auto) (34.0-71.1) % Lymph % (Auto) (19.3-51.7) % [place]yer % (Auto) (4.7-12.5) % Eos % (Auto) (0.7-5.8) Baso % (Auto) (0.1-1.2) % Neut # (Auto) (1.56-6.13) K/mm3 Lymph # (Auto) (1.18-3.74) K/mm3 [place] # (Auto) (0.24-0.36) K/mm3 Eos # (Auto) (0.04-0.36) K/mm3 Baso # (Auto) (0.01-0.08) K/mm3 Sodium (136-145) mEq/L Potassium (3.5-5.1) mEq/L Chloride (98-107) mEq/L Carbon Dioxide (21-32) mEq/L Anion Gap (5-15) BUN (7-18) mg/dL Creatinine (0.55-1.02) mg/dL Est Cr Clr Drug Dosing mL/min Estimated GFR (MDRD) (>60) mL/min BUN/Creatinine Ratio (14-18) Glucose (70-99) mg/dL POC Glucose 122 H (70-99) mg/dL Hemoglobin A1c ( - 5.6) % Calcium (8.5-10.1) mg/dL Magnesium (1.8-2.4) mg/dL Total Bilirubin (0.2-1.0) mg/dL AST (15-37) U/L ALT (14-59) U/L Alkaline Phosphatase (46-116) U/L Total Protein (6.4-8.2) g/dl Albumin (3.4-5.0) g/dl Globulin gm/dL Albumin/Globulin Ratio (1-2) TSH 3rd Generation (0.358-3.74) uIU/mL Influenza Type A RNA (NEGATIVE) Influenza Type B RNA (NEGATIVE) SARS-CoV-2 RNA ([place]) (NEGATIVE) Med Orders - Current: Current Medications Acetaminophen (Acetaminophen 325 Mg Tab) 650 mg PO Q6H [facility] Last Admin: 01/31/21 12:16 Dose: 650 mg Documented by: Aspirin (Aspirin 81 Mg Tab.Chew) 81 mg PO BEDTIME HIRAL Atorvastatin Calcium (Atorvastatin 20 Mg Tab) 10 mg PO DAILY [facility] Last Admin: 01/31/21 09:55 Dose: 10 mg Documented by: Clonidine HCl (Clonidine 0.1 Mg Tab) 0.2 mg PO BEDTIME HIRAL Cyanocobalamin (Cyanocobalamin (Vitamin B12) 1,000 Mcg Tab) 1,000 mcg PO DAILY@1200 [facility] Last Admin: 01/31/21 12:16 Dose: 1,000 mcg Documented by: Enoxaparin Sodium (Enoxaparin 40 Mg/0.4 Ml Syringe) 40 mg SUBCUT DAILY [facility] Last Admin: 01/31/21 09:56 Dose: 40 mg Documented by: Ferrous Sulfate (Ferrous Sulfate 324 Mg Tab.Ec) 324 mg PO TIDAC [facility] Last Admin: 01/31/21 12:15 Dose: Not Given Documented by: Folic Acid (Folic Acid 1 Mg Tab) 1 mg PO DAILY [facility] Last Admin: 01/31/21 09:51 Dose: 1 mg Documented by: Furosemide (Furosemide 40 Mg Tab) 40 mg PO DAILY [facility] Last Admin: 01/31/21 09:54 Dose: 40 mg Documented by: Hydromorphone HCl (Hydromorphone 0.5 Mg/0.5 Ml Syringe) 0.5 mg IVPUSH Q2H PRN PRN Reason: Pain (severe 7-10) Insulin Human Lispro (Insulin Lispro 100 Unit/Ml 3 Ml Kwikpen) 0 unit SUBCUT QIDACANDBED [facility]; Protocol Last Admin: 01/31/21 12:19 Dose: Not Given Documented by: Magnesium Oxide (Magnesium Oxide 400 Mg Tab) 400 mg PO BID [facility] Last Admin: 01/31/21 09:53 Dose: 400 mg Documented by: Metformin HCl (Metformin 500 Mg Tab) 1,000 mg PO BID [facility] Last Admin: 01/31/21 09:52 Dose: 1,000 mg Documented by: Ondansetron HCl (Ondansetron 4 Mg/2 Ml Sdv) 4 mg IV Q6H PRN PRN Reason: Nausea/Vomiting Oxycodone HCl (Oxycodone 5 Mg Tab) 5 mg PO Q4H PRN PRN Reason: Pain (moderate 4-6) Last Admin: 01/31/21 10:07 Dose: 5 mg Documented by: Potassium Chloride (Potassium Chloride 10 Meq Tab.Er) 10 meq PO TID [facility] Last Admin: 01/31/21 09:55 Dose: 10 meq Documented by: Discontinued Medications Acetaminophen (Acetaminophen 325 Mg Tab) 650 mg PO Q4H PRN PRN Reason: Pain (Mild 1-3)/fever Last Admin: 01/31/21 02:25 Dose: 650 mg Documented by: Acetaminophen (Acetaminophen 325 Mg Tab) 650 mg PO Q6H [facility] Cyanocobalamin (Cyanocobalamin (Vitamin B12) 1,000 Mcg Tab) 1,000,000 mcg PO DAILY@1200 [facility] Last Admin: 01/31/21 12:21 Dose: Not Given Documented by: Cyanocobalamin (Cyanocobalamin (Vitamin B12) 1,000 Mcg Tab) 100,000 mcg PO DAILY@1200 [facility] Cyanocobalamin (Cyanocobalamin (Vitamin B12) 1,000 Mcg Tab) 1,000 mcg PO DAILY@1200 [facility] Ferrous Sulfate (Ferrous Sulfate 324 Mg Tab.Ec) 324 mg PO ONETIME ONE Stop: 01/31/21 12:16 Last Admin: 01/31/21 12:15 Dose: 324 mg Documented by: Hydromorphone HCl (Hydromorphone 0.5 Mg/0.5 Ml Syringe) 0.5 mg IM ONETIME ONE Stop: 01/30/21 15:37 Last Admin: 01/30/21 17:01 Dose: 0.5 mg Documented by: - Exam Quality Assessment: No: Supplemental Oxygen General: Alert, Oriented HEENT: Pupils Equal, Mucous Membr. Moist/[place] Neck: Supple Lungs: Clear to Auscultation, Normal Respiratory Effort Cardiovascular: Regular Rate, Regular Rhythm GI/Abdominal Exam: Normal Bowel Sounds, Soft, Non-Tender, No Organomegaly, No Distention, No Abnormal Bruit, No Mass Extremities: Normal Inspection, Normal Range of Motion, No Pedal Edema, Normal Capillary Refill Skin: Warm, Dry, Intact - Patient Data Lab Results Last 24 hrs: Laboratory Results - last 24 hr 01/30/21 01/30/21 01/31/21 Range/Units 18:46 20:33 04:33 WBC 7.72 (3.98-10.04) K/mm3 RBC 4.00 (3.98-5.22) M/mm3 Hgb 10.3 L (11.2-15.7) gm/dl Hct 33.3 L (34.1-44.9) % MCV 83.3 (79.4-94.8) fl MCH 25.8 (25.6-32.2) pg MCHC 30.9 L (32.2-35.5) g/dl RDW Std Deviation 47.6 H (36.4-46.3) fL Plt Count 477 H (182-369) K/mm3 MPV 8.5 L (9.4-12.3) fl Neut % (Auto) 51.2 (34.0-71.1) % Lymph % (Auto) 31.9 (19.3-51.7) % [place]yer % (Auto) 12.4 (4.7-12.5) % Eos % (Auto) 3.8 (0.7-5.8) Baso % (Auto) 0.4 (0.1-1.2) % Neut # (Auto) 3.96 (1.56-6.13) K/mm3 Lymph # (Auto) 2.46 (1.18-3.74) K/mm3 [place]yer # (Auto) 0.96 H (0.24-0.36) K/mm3 Eos # (Auto) 0.29 (0.04-0.36) K/mm3 Baso # (Auto) 0.03 (0.01-0.08) K/mm3 Sodium (136-145) mEq/L Potassium (3.5-5.1) mEq/L Chloride (98-107) mEq/L Carbon Dioxide (21-32) mEq/L Anion Gap (5-15) BUN (7-18) mg/dL Creatinine (0.55-1.02) mg/dL Est Cr Clr Drug Dosing mL/min Estimated GFR (MDRD) (>60) mL/min BUN/Creatinine Ratio (14-18) Glucose (70-99) mg/dL POC Glucose 109 H (70-99) mg/dL Hemoglobin A1c ( - 5.6) % Calcium (8.5-10.1) mg/dL Magnesium (1.8-2.4) mg/dL Total Bilirubin (0.2-1.0) mg/dL AST (15-37) U/L ALT (14-59) U/L Alkaline Phosphatase (46-116) U/L Total Protein (6.4-8.2) g/dl Albumin (3.4-5.0) g/dl Globulin gm/dL Albumin/Globulin Ratio (1-2) TSH 3rd Generation (0.358-3.74) uIU/mL Influenza Type A RNA Negative (NEGATIVE) Influenza Type B RNA Negative (NEGATIVE) SARS-CoV-2 RNA ([place]) Negative (NEGATIVE) 01/31/21 01/31/21 01/31/21 Range/Units 04:33 04:33 07:06 WBC (3.98-10.04) K/mm3 RBC (3.98-5.22) M/mm3 Hgb (11.2-15.7) gm/dl Hct (34.1-44.9) % MCV (79.4-94.8) fl MCH (25.6-32.2) pg MCHC (32.2-35.5) g/dl RDW Std Deviation (36.4-46.3) fL Plt Count (182-369) K/mm3 MPV (9.4-12.3) fl Neut % (Auto) (34.0-71.1) % Lymph % (Auto) (19.3-51.7) % [place] % (Auto) (4.7-12.5) % Eos % (Auto) (0.7-5.8) Baso % (Auto) (0.1-1.2) % Neut # (Auto) (1.56-6.13) K/mm3 Lymph # (Auto) (1.18-3.74) K/mm3 [place]yer # (Auto) (0.24-0.36) K/mm3 Eos # (Auto) (0.04-0.36) K/mm3 Baso # (Auto) (0.01-0.08) K/mm3 Sodium 141 (136-145) mEq/L Potassium 4.2 (3.5-5.1) mEq/L Chloride 105 (98-107) mEq/L Carbon Dioxide 27 (21-32) mEq/L Anion Gap 13.2 (5-15) BUN 7 (7-18) mg/dL Creatinine 0.7 (0.55-1.02) mg/dL Est Cr Clr Drug Dosing 48.34 mL/min Estimated GFR (MDRD) > 60 (>60) mL/min BUN/Creatinine Ratio 10.0 L (14-18) Glucose 107 H (70-99) mg/dL POC Glucose 101 H (70-99) mg/dL Hemoglobin A1c 6.7 H ( - 5.6) % Calcium 8.8 (8.5-10.1) mg/dL Magnesium 1.7 L (1.8-2.4) mg/dL Total Bilirubin 0.2 (0.2-1.0) mg/dL AST 31 (15-37) U/L ALT 48 (14-59) U/L Alkaline Phosphatase 139 H (46-116) U/L Total Protein 6.4 (6.4-8.2) g/dl Albumin 2.5 L (3.4-5.0) g/dl Globulin 3.9 gm/dL Albumin/Globulin Ratio 0.6 L (1-2) TSH 3rd Generation 3.182 (0.358-3.74) uIU/mL Influenza Type A RNA (NEGATIVE) Influenza Type B RNA (NEGATIVE) SARS-CoV-2 RNA ([place]) (NEGATIVE) 01/31/21 Range/Units 11:11 WBC (3.98-10.04) K/mm3 RBC (3.98-5.22) M/mm3 Hgb (11.2-15.7) gm/dl Hct (34.1-44.9) % MCV (79.4-94.8) fl MCH (25.6-32.2) pg MCHC (32.2-35.5) g/dl RDW Std Deviation (36.4-46.3) fL Plt Count (182-369) K/mm3 MPV (9.4-12.3) fl Neut % (Auto) (34.0-71.1) % Lymph % (Auto) (19.3-51.7) % [place] % (Auto) (4.7-12.5) % Eos % (Auto) (0.7-5.8) Baso % (Auto) (0.1-1.2) % Neut # (Auto) (1.56-6.13) K/mm3 Lymph # (Auto) (1.18-3.74) K/mm3 [place] # (Auto) (0.24-0.36) K/mm3 Eos # (Auto) (0.04-0.36) K/mm3 Baso # (Auto) (0.01-0.08) K/mm3 Sodium (136-145) mEq/L Potassium (3.5-5.1) mEq/L Chloride (98-107) mEq/L Carbon Dioxide (21-32) mEq/L Anion Gap (5-15) BUN (7-18) mg/dL Creatinine (0.55-1.02) mg/dL Est Cr Clr Drug Dosing mL/min Estimated GFR (MDRD) (>60) mL/min BUN/Creatinine Ratio (14-18) Glucose (70-99) mg/dL POC Glucose 122 H (70-99) mg/dL Hemoglobin A1c ( - 5.6) % Calcium (8.5-10.1) mg/dL Magnesium (1.8-2.4) mg/dL Total Bilirubin (0.2-1.0) mg/dL AST (15-37) U/L ALT (14-59) U/L Alkaline Phosphatase (46-116) U/L Total Protein (6.4-8.2) g/dl Albumin (3.4-5.0) g/dl Globulin gm/dL Albumin/Globulin Ratio (1-2) TSH 3rd Generation (0.358-3.74) uIU/mL Influenza Type A RNA (NEGATIVE) Influenza Type B RNA (NEGATIVE) SARS-CoV-2 RNA ([place]) (NEGATIVE) Result Diagrams: 01/31/21 04:33 01/31/21 04:33 Sepsis Event Note - Evaluation Sepsis Screening Result: No Definite Risk - Focused Exam Vital Signs: Vital Signs Temp Pulse Resp BP Pulse Ox 01/31/21 04:21 97.5 F 66 16 135/99 H 96 - Problem List & Annotations (1) Closed left hip fracture SNOMED Code(s): 708197234 Code(s): S72.002A - FRACTURE OF UNSP PART OF NECK OF LEFT FEMUR, INIT Status: Acute Current Visit: Yes Qualifiers: Encounter type: initial encounter Qualified Code(s): S72.002A - Fracture of unspecified part of neck of left femur, initial encounter for closed fracture (2) Pain management SNOMED Code(s): 825751648 Code(s): R52 - PAIN, UNSPECIFIED Status: Acute Current Visit: Yes (3) Type 2 diabetes mellitus SNOMED Code(s): 62778950 Code(s): E11.9 - TYPE 2 DIABETES MELLITUS WITHOUT COMPLICATIONS Status: Acute Current Visit: Yes (4) Crohns disease of small intestine SNOMED Code(s): 91951801 Code(s): K50.00 - CROHN'S DISEASE OF SMALL INTESTINE WITHOUT COMPLICATIONS Status: Acute Priority: High Current Visit: No - Problem List Review Problem List Initiated/Reviewed/Updated: Yes - My Orders Last 24 Hours: My Active Orders 01/30/21 Dinner Consistent Carbohydrate Diet [DIET] 01/30/21 20:20 Oxygen Therapy [RC] DAILY Up With Assistance [RC] BID VTE/DVT Education [RC] DAILY Vital Signs [RC] Q4HR PT Evaluation and Treatment [CONS] Routine HYDROmorphone [Dilaudid] 0.5 mg IVPUSH Q2H PRN Ondansetron [Zofran] 4 mg IV Q6H PRN oxyCODONE 5 mg PO Q4H PRN 01/30/21 20:27 Blood Glucose Check, Bedside [RC] WITHMEALSANDBED 01/30/21 22:00 Insulin Lispro [HumaLOG] See Protocol SUBCUT QIDACANDBED 01/31/21 02:33 Resuscitation Status Routine 01/31/21 07:00 Ferrous Sulfate 324 mg PO TIDAC 01/31/21 09:00 Enoxaparin [Lovenox] 40 mg SUBCUT DAILY Folic Acid 1 mg PO DAILY Furosemide [Lasix] 40 mg PO DAILY Potassium Chloride [Klor-Con 10] 10 meq PO TID atorvaSTATin [Lipitor] 10 mg PO DAILY metFORMIN [Glucophage] 1,000 mg PO BID 01/31/21 09:30 Magnesium Oxide 400 mg PO BID 01/31/21 12:15 Cyanocobalamin (Vitamin B12) [Vitamin B12] 1,000 mcg PO DAILY@1200 01/31/21 12:30 Acetaminophen [TylenoL] 650 mg PO Q6H 01/31/21 21:00 Aspirin 81 mg PO BEDTIME cloNIDine [Catapres] 0.2 mg PO BEDTIME - Plan Plan:: Slightly comminuted fracture left greater tuberosity of the left femur Unable to discharge from hospital emergency department secondary to pain * Fracture occurred at the clinic entrance when walking through the revolving doors. * CT scan showed the fracture * Given Dilaudid 0.5 mg IV in the emergency department for pain control * Admitted for pain management and physical therapy. Type 2 diabetes * Unknown hemoglobin A1c * On Metformin Crohn's disease * History of small bowel obstruction * No current complaints * No current medications History of anemia likely secondary to Crohn's disease * Currently on iron supplementation 3 times daily 01/31/2021 Patient did well overnight, but this morning she is having more pain. We will increase Tylenol to 975 mg every 6 hours scheduled for pain. Continue on oxycodone and Dilaudid as needed. Magnesium was low at 1.7. Hemoglobin A1c was well controlled at 6.7. Other labs were nonsignificant. Plan * Managed on medical floor t * Change Tylenol to 975 mg every 6 hours * Continue oxycodone 5 mg every 4 hours as needed and Dilaudid 0.5 mg every 2 hours as needed * Continue home meds * Decrease iron supplementation to once a day since three times a day has no benefit over once a day dosing. * Physical therapy consult * building services engineer consult on Tuesday * VTE prophylaxis with enoxaparin * CODE STATUS: DNR/DNI
[2021-01-31] MEDS ORDERED: Sodium Chloride 0.9% 10 ML Syringe FLUSH PRN (15:00)
[2021-01-31] MEDS ORDERED: Acetaminophen 325 MG Tab PO SCH (16:00)
[2021-01-31] MEDS: Aspirin 81 MG Tab.Chew PO SCH (21:02)
[2021-01-31] MEDS: cloNIDine 0.1 MG Tab PO SCH (21:02)
[2021-02-01] MEDS: Acetaminophen 325 MG Tab PO SCH ×4 (00:11→18:23)
[2021-02-01] MEDS: Ferrous Sulfate 324 MG Tab.EC PO SCH (06:57)
[2021-02-01] MEDS: Insulin Lispro 100 Unit/ML 3 ML KwikPen SUBCUT SCH ×4 (07:42→22:13)
[2021-02-01] MEDS: atorvaSTATin 20 MG Tab PO SCH (08:11)
[2021-02-01] MEDS: metFORMIN 500 MG Tab PO SCH ×2 (08:11→21:19)
[2021-02-01] MEDS: Furosemide 40 MG Tab PO SCH (08:12)
[2021-02-01] MEDS: Potassium Chloride 10 MEQ Tab.ER PO SCH ×3 (08:12→21:17)
[2021-02-01] MEDS: Folic Acid 1 MG Tab PO SCH (08:12)
[2021-02-01] MEDS: Enoxaparin 40 MG/0.4 ML Syringe SUBCUT SCH (08:12)
[2021-02-01] MEDS: Magnesium Oxide 400 MG Tab PO SCH ×2 (08:12→21:16)
[2021-02-01] MEDS: Cyanocobalamin (Vitamin B12) 1,000 MCG Tab PO SCH (11:14)
[2021-02-01] MEDS: oxyCODONE 5 MG Tab PO PRN (11:14)
--- NOTE | 2021-02-01 12:18 | PCM.PN ---
- General Info Date of Service: 02/01/21 Admission Dx/Problem (Free Text): Admission Diagnosis/Problem Admission Diagnosis/Problem Hip fracture due to osteoporosis Subjective Update: Patient states that pain is improving. She is on scheduled Tylenol and as needed oxycodone. Functional Status: Reports: Pain Controlled - Review of Systems General: Reports: No Symptoms HEENT: Reports: No Symptoms Pulmonary: Reports: No Symptoms Cardiovascular: Reports: No Symptoms Musculoskeletal: Reports: No Symptoms - Patient Data Vitals - Most Recent: Last Vital Signs Temp 98.1 F 02/01/21 07:44 Pulse 80 02/01/21 07:44 Resp 23 H 02/01/21 07:44 BP 124/47 L 02/01/21 07:44 Pulse Ox 96 02/01/21 07:44 Weight - Most Recent: 120 lb 4.8 oz I&O - Last 24 Hours: Intake & Output 01/31/21 02/01/21 02/01/21 22:59 06:59 14:59 Intake Total 1015 600 Balance 1015 600 Lab Results Last 24 Hours: Laboratory Results - last 24 hr 01/31/21 01/31/21 02/01/21 Range/Units 17:10 21:01 07:02 POC Glucose 106 H 143 H 98 (70-99) mg/dL 02/01/21 Range/Units 10:58 POC Glucose 105 H (70-99) mg/dL Med Orders - Current: Current Medications Acetaminophen (Acetaminophen 325 Mg Tab) 650 mg PO Q6H [facility] Last Admin: 02/01/21 06:57 Dose: 650 mg Documented by: Aspirin (Aspirin 81 Mg Tab.Chew) 81 mg PO BEDTIME [facility] Last Admin: 01/31/21 21:02 Dose: 81 mg Documented by: Atorvastatin Calcium (Atorvastatin 20 Mg Tab) 10 mg PO DAILY [facility] Last Admin: 02/01/21 08:11 Dose: 10 mg Documented by: Clonidine HCl (Clonidine 0.1 Mg Tab) 0.2 mg PO BEDTIME [facility] Last Admin: 01/31/21 21:02 Dose: 0.2 mg Documented by: Cyanocobalamin (Cyanocobalamin (Vitamin B12) 1,000 Mcg Tab) 1,000 mcg PO DAILY@1200 [facility] Last Admin: 02/01/21 11:14 Dose: 1,000 mcg Documented by: Enoxaparin Sodium (Enoxaparin 40 Mg/0.4 Ml Syringe) 40 mg SUBCUT DAILY [facility] Last Admin: 02/01/21 08:12 Dose: 40 mg Documented by: Ferrous Sulfate (Ferrous Sulfate 324 Mg Tab.Ec) 324 mg PO WITHBREAKFAST [facility] Last Admin: 02/01/21 06:57 Dose: 324 mg Documented by: Folic Acid (Folic Acid 1 Mg Tab) 1 mg PO DAILY [facility] Last Admin: 02/01/21 08:12 Dose: 1 mg Documented by: Furosemide (Furosemide 40 Mg Tab) 40 mg PO DAILY [facility] Last Admin: 02/01/21 08:12 Dose: 40 mg Documented by: Hydromorphone HCl (Hydromorphone 0.5 Mg/0.5 Ml Syringe) 0.5 mg IVPUSH Q2H PRN PRN Reason: Pain (severe 7-10) Insulin Human Lispro (Insulin Lispro 100 Unit/Ml 3 Ml Kwikpen) 0 unit SUBCUT QIDACANDBED [facility]; Protocol Last Admin: 02/01/21 07:42 Dose: Not Given Documented by: Magnesium Oxide (Magnesium Oxide 400 Mg Tab) 400 mg PO BID [facility] Last Admin: 02/01/21 08:12 Dose: 400 mg Documented by: Metformin HCl (Metformin 500 Mg Tab) 1,000 mg PO BID [facility] Last Admin: 02/01/21 08:11 Dose: 1,000 mg Documented by: Ondansetron HCl (Ondansetron 4 Mg/2 Ml Sdv) 4 mg IV Q6H PRN PRN Reason: Nausea/Vomiting Oxycodone HCl (Oxycodone 5 Mg Tab) 5 mg PO Q4H PRN PRN Reason: Pain (moderate 4-6) Last Admin: 02/01/21 11:14 Dose: 5 mg Documented by: Potassium Chloride (Potassium Chloride 10 Meq Tab.Er) 10 meq PO TID [facility] Last Admin: 02/01/21 08:12 Dose: 10 meq Documented by: Sodium Chloride (Sodium Chloride 0.9% 10 Ml Syringe) 10 ml FLUSH ASDIRECTED PRN PRN Reason: Keep Vein Open Discontinued Medications Acetaminophen (Acetaminophen 325 Mg Tab) 650 mg PO Q4H PRN PRN Reason: Pain (Mild 1-3)/fever Last Admin: 01/31/21 02:25 Dose: 650 mg Documented by: Acetaminophen (Acetaminophen 325 Mg Tab) 650 mg PO Q6H [facility] Cyanocobalamin (Cyanocobalamin (Vitamin B12) 1,000 Mcg Tab) 1,000,000 mcg PO DAILY@1200 [facility] Last Admin: 01/31/21 12:21 Dose: Not Given Documented by: Cyanocobalamin (Cyanocobalamin (Vitamin B12) 1,000 Mcg Tab) 100,000 mcg PO DAILY@1200 [facility] Cyanocobalamin (Cyanocobalamin (Vitamin B12) 1,000 Mcg Tab) 1,000 mcg PO DAILY @1200 [facility] Ferrous Sulfate (Ferrous Sulfate 324 Mg Tab.Ec) 324 mg PO TIDAC [facility] Last Admin: 01/31/21 19:15 Dose: Not Given Documented by: Ferrous Sulfate (Ferrous Sulfate 324 Mg Tab.Ec) 324 mg PO ONETIME ONE Stop: 01/31/21 12:16 Last Admin: 01/31/21 12:15 Dose: 324 mg Documented by: Hydromorphone HCl (Hydromorphone 0.5 Mg/0.5 Ml Syringe) 0.5 mg IM ONETIME ONE Stop: 01/30/21 15:37 Last Admin: 01/30/21 17:01 Dose: 0.5 mg Documented by: - Exam Quality Assessment: No: Supplemental Oxygen General: Alert, Oriented HEENT: Pupils Equal, Mucous Membr. Moist/[place] Neck: Supple Lungs: Clear to Auscultation, Normal Respiratory Effort Cardiovascular: Regular Rate, Regular Rhythm GI/Abdominal Exam: Normal Bowel Sounds, Soft, Non-Tender, No Distention Extremities: Normal Inspection, Normal Range of Motion, Non-Tender, No Pedal Edema, Normal Capillary Refill Skin: Warm, Dry, Intact Neurological: No New Focal Deficit Psy/Mental Status: Alert, Normal Affect, Normal Mood - Patient Data Lab Results Last 24 hrs: Laboratory Results - last 24 hr 01/31/21 01/31/21 02/01/21 Range/Units 17:10 21:01 07:02 POC Glucose 106 H 143 H 98 (70-99) mg/dL 02/01/21 Range/Units 10:58 POC Glucose 105 H (70-99) mg/dL Result Diagrams: 01/31/21 04:33 01/31/21 04:33 Sepsis Event Note - Evaluation Sepsis Screening Result: No Definite Risk - Focused Exam Vital Signs: Vital Signs Temp Pulse Resp BP Pulse Ox 02/01/21 07:44 98.1 F 80 23 H 124/47 L 96 02/01/21 05:04 98.8 F 74 16 112/75 95 - Problem List & Annotations (1) Closed left hip fracture SNOMED Code(s): 218206237 Code(s): S72.002A - FRACTURE OF UNSP PART OF NECK OF LEFT FEMUR, INIT Status: Acute Current Visit: Yes Qualifiers: Encounter type: initial encounter Qualified Code(s): S72.002A - Fracture of unspecified part of neck of left femur, initial encounter for closed fracture (2) Pain management SNOMED Code(s): 113510747 Code(s): R52 - PAIN, UNSPECIFIED Status: Acute Current Visit: Yes (3) Type 2 diabetes mellitus SNOMED Code(s): 60024560 Code(s): E11.9 - TYPE 2 DIABETES MELLITUS WITHOUT COMPLICATIONS Status: Acute Current Visit: Yes (4) Crohns disease of small intestine SNOMED Code(s): 33275122 Code(s): K50.00 - CROHN'S DISEASE OF SMALL INTESTINE WITHOUT COMPLICATIONS Status: Acute Priority: High Current Visit: No - Problem List Review Problem List Initiated/Reviewed/Updated: Yes - My Orders Last 24 Hours: My Active Orders 01/31/21 12:15 Cyanocobalamin (Vitamin B12) [Vitamin B12] 1,000 mcg PO DAILY@1200 01/31/21 12:30 Acetaminophen [TylenoL] 650 mg PO Q6H 01/31/21 14:32 Consult to Speech Language Pathology [PAYROLL ANALYST Evaluation and Treatment] [CONS] Routine 01/31/21 15:00 Sodium Chloride 0.9% [Saline Flush] 10 ml FLUSH ASDIRECTED PRN Peripheral IV Insertion Adult [OM.PC] Routine 01/31/21 15:01 Peripheral IV Care [RC] 04,08,12,16,20,00 01/31/21 21:00 Aspirin 81 mg PO BEDTIME cloNIDine [Catapres] 0.2 mg PO BEDTIME 02/01/21 07:00 Ferrous Sulfate 324 mg PO WITHBREAKFAST 02/02/21 05:11 CBC WITH AUTO DIFF [HEME] AM CMP [COMPREHENSIVE METABOLIC PN,CMP] [CHEM] AM MAGNESIUM [CHEM] AM - Plan Plan:: Slightly comminuted fracture left greater tuberosity of the left femur Unable to discharge from hospital emergency department secondary to pain * Fracture occurred at the clinic entrance when walking through the revolving doors. * CT scan showed the fracture * Given Dilaudid 0.5 mg IV in the emergency department for pain control * Admitted for pain management and physical therapy. Type 2 diabetes * Unknown hemoglobin A1c * On Metformin Crohn's disease * History of small bowel obstruction * No current complaints * No current medications History of anemia likely secondary to Crohn's disease * Currently on iron supplementation 3 times daily 01/31/2021 Patient did well overnight, but this morning she is having more pain. We will increase Tylenol to 975 mg every 6 hours scheduled for pain. Continue on oxycodone and Dilaudid as needed. Magnesium was low at 1.7. Hemoglobin A1c was well controlled at 6.7. Other labs were nonsignificant. 02/01/2021 Patient has improving pain control, but still requires oxycodone as needed. Continue with physical therapy and consult oncology social worker for possible placement. Plan * Managed on medical floor t * Tylenol to 975 mg every 6 hours * Continue oxycodone 5 mg every 4 hours as needed and Dilaudid 0.5 mg every 2 hours as needed * Continue home meds * Decrease iron supplementation to once a day since three times a day has no benefit over once a day dosing. * Physical therapy consult * disabilities services officer consult on Tuesday * VTE prophylaxis with enoxaparin * CODE STATUS: DNR/DNI
[2021-02-01] MEDS: Aspirin 81 MG Tab.Chew PO SCH (21:16)
[2021-02-01] MEDS: cloNIDine 0.1 MG Tab PO SCH (21:18)
[2021-02-02] MEDS: Acetaminophen 325 MG Tab PO SCH ×4 (01:11→17:55)
[2021-02-02] MEDS: Ferrous Sulfate 324 MG Tab.EC PO SCH ×2 (05:55→08:52)
--- NOTE | 2021-02-02 08:08 | CR ---
Pelvis and right hip: AP view of the pelvis was obtained as well as AP and crosstable lateral views of the left hip. Comparison: No prior left hip study is available, left hip CT performed later on the same day (4:37 PM) is available. Fracture is seen within the greater tuberosity of the left hip. This was confirmed on subsequent CT study. Bony structures are osteopenic. Degenerative change is seen within the sacroiliac joints and degenerative change is also partially seen within the lumbar spine. Impression: 1. Nondisplaced fracture involving the greater tuberosity of the left hip. 2. Other findings which are chronic as described above. Diagnostic code #3
--- NOTE | 2021-02-02 08:51 | PCM.PN ---
- General Info Date of Service: 02/02/21 Admission Dx/Problem (Free Text): Admission Diagnosis/Problem Admission Diagnosis/Problem Hip fracture due to osteoporosis Functional Status: Reports: Pain Controlled, Tolerating Diet, Ambulating, Urinating. Denies: New Symptoms - Review of Systems General: Reports: Weakness. Denies: Fever, Fatigue, Malaise, Chills HEENT: Reports: No Symptoms. Denies: Headaches, Sore Throat Pulmonary: Reports: No Symptoms. Denies: Shortness of Breath, Cough, Sputum, Wheezing Cardiovascular: Reports: No Symptoms. Denies: Chest Pain, Palpitations, Dyspnea on Exertion, Edema Gastrointestinal: Reports: No Symptoms. Denies: Abdominal Pain, Constipation, Diarrhea, Nausea, Vomiting Genitourinary: Reports: No Symptoms. Denies: Pain Musculoskeletal: Reports: No Symptoms Skin: Reports: No Symptoms. Denies: Cyanosis Neurological: Reports: No Symptoms, Difficulty Walking, Weakness, Gait Disturbance. Denies: Confusion, Dizziness, Headache, Numbness, Pre-Existing Deficit, Seizure, Syncope, Tingling, Tremors, Trouble Speaking, Change in Speech Psychiatric: Reports: No Symptoms - Patient Data Vitals - Most Recent: Last Vital Signs Temp 98.2 F 02/02/21 04:09 Pulse 71 02/02/21 04:09 Resp 18 02/02/21 04:09 BP 118/69 02/02/21 04:09 Pulse Ox 98 02/02/21 04:09 Weight - Most Recent: 118 lb 6.4 oz I&O - Last 24 Hours: Intake & Output 02/01/21 02/02/21 02/02/21 22:59 06:59 14:59 Intake Total 500 Output Total 700 450 Balance -200 -450 Lab Results Last 24 Hours: Laboratory Results - last 24 hr 02/01/21 02/01/21 02/01/21 Range/Units 10:58 16:46 20:48 WBC (3.98-10.04) K/mm3 RBC (3.98-5.22) M/mm3 Hgb (11.2-15.7) gm/dl Hct (34.1-44.9) % MCV (79.4-94.8) fl MCH (25.6-32.2) pg MCHC (32.2-35.5) g/dl RDW Std Deviation (36.4-46.3) fL Plt Count (182-369) K/mm3 MPV (9.4-12.3) fl Neut % (Auto) (34.0-71.1) % Lymph % (Auto) (19.3-51.7) % [place] % (Auto) (4.7-12.5) % Eos % (Auto) (0.7-5.8) Baso % (Auto) (0.1-1.2) % Neut # (Auto) (1.56-6.13) K/mm3 Lymph # (Auto) (1.18-3.74) K/mm3 [place] # (Auto) (0.24-0.36) K/mm3 Eos # (Auto) (0.04-0.36) K/mm3 Baso # (Auto) (0.01-0.08) K/mm3 Sodium (136-145) mEq/L Potassium (3.5-5.1) mEq/L Chloride (98-107) mEq/L Carbon Dioxide (21-32) mEq/L Anion Gap (5-15) BUN (7-18) mg/dL Creatinine (0.55-1.02) mg/dL Est Cr Clr Drug Dosing mL/min Estimated GFR (MDRD) (>60) mL/min BUN/Creatinine Ratio (14-18) Glucose (70-99) mg/dL POC Glucose 105 H 121 H 185 H (70-99) mg/dL Calcium (8.5-10.1) mg/dL Magnesium (1.8-2.4) mg/dL Total Bilirubin (0.2-1.0) mg/dL AST (15-37) U/L ALT (14-59) U/L Alkaline Phosphatase (46-116) U/L Total Protein (6.4-8.2) g/dl Albumin (3.4-5.0) g/dl Globulin gm/dL Albumin/Globulin Ratio (1-2) 02/02/21 02/02/21 02/02/21 Range/Units 05:05 05:05 06:20 WBC 7.57 (3.98-10.04) K/mm3 RBC 4.21 (3.98-5.22) M/mm3 Hgb 10.9 L (11.2-15.7) gm/dl Hct 35.1 (34.1-44.9) % MCV 83.4 (79.4-94.8) fl MCH 25.9 (25.6-32.2) pg MCHC 31.1 L (32.2-35.5) g/dl RDW Std Deviation 47.2 H (36.4-46.3) fL Plt Count 514 H (182-369) K/mm3 MPV 8.3 L (9.4-12.3) fl Neut % (Auto) 53.7 (34.0-71.1) % Lymph % (Auto) 28.1 (19.3-51.7) % [place] % (Auto) 13.5 H (4.7-12.5) % Eos % (Auto) 4.0 (0.7-5.8) Baso % (Auto) 0.4 (0.1-1.2) % Neut # (Auto) 4.07 (1.56-6.13) K/mm3 Lymph # (Auto) 2.13 (1.18-3.74) K/mm3 [place] # (Auto) 1.02 H (0.24-0.36) K/mm3 Eos # (Auto) 0.30 (0.04-0.36) K/mm3 Baso # (Auto) 0.03 (0.01-0.08) K/mm3 Sodium 139 (136-145) mEq/L Potassium 4.5 (3.5-5.1) mEq/L Chloride 103 (98-107) mEq/L Carbon Dioxide 26 (21-32) mEq/L Anion Gap 14.5 (5-15) BUN 15 (7-18) mg/dL Creatinine 0.7 (0.55-1.02) mg/dL Est Cr Clr Drug Dosing 48.34 mL/min Estimated GFR (MDRD) > 60 (>60) mL/min BUN/Creatinine Ratio 21.4 H (14-18) Glucose 118 H (70-99) mg/dL POC Glucose 115 H (70-99) mg/dL Calcium 8.5 (8.5-10.1) mg/dL Magnesium 1.9 (1.8-2.4) mg/dL Total Bilirubin 0.3 (0.2-1.0) mg/dL AST 35 (15-37) U/L ALT 51 (14-59) U/L Alkaline Phosphatase 131 H (46-116) U/L Total Protein 6.5 (6.4-8.2) g/dl Albumin 2.5 L (3.4-5.0) g/dl Globulin 4.0 gm/dL Albumin/Globulin Ratio 0.6 L (1-2) Med Orders - Current: Current Medications Acetaminophen (Acetaminophen 325 Mg Tab) 650 mg PO Q6H [facility] Last Admin: 02/02/21 05:54 Dose: 650 mg Documented by: Aspirin (Aspirin 81 Mg Tab.Chew) 81 mg PO BEDTIME [facility] Last Admin: 02/01/21 21:16 Dose: 81 mg Documented by: Atorvastatin Calcium (Atorvastatin 20 Mg Tab) 10 mg PO DAILY [facility] Last Admin: 02/01/21 08:11 Dose: 10 mg Documented by: Clonidine HCl (Clonidine 0.1 Mg Tab) 0.2 mg PO BEDTIME [facility] Last Admin: 02/01/21 21:18 Dose: 0.2 mg Documented by: Cyanocobalamin (Cyanocobalamin (Vitamin B12) 1,000 Mcg Tab) 1,000 mcg PO AKIRA Y@1200 [facility] Last Admin: 02/01/21 11:14 Dose: 1,000 mcg Documented by: Enoxaparin Sodium (Enoxaparin 40 Mg/0.4 Ml Syringe) 40 mg SUBCUT DAILY [facility] Last Admin: 02/01/21 08:12 Dose: 40 mg Documented by: Ferrous Sulfate (Ferrous Sulfate 324 Mg Tab.Ec) 324 mg PO WITHBREAKFAST [facility] Last Admin: 02/02/21 05:55 Dose: 324 mg Documented by: Folic Acid (Folic Acid 1 Mg Tab) 1 mg PO DAILY [facility] Last Admin: 02/01/21 08:12 Dose: 1 mg Documented by: Furosemide (Furosemide 40 Mg Tab) 40 mg PO DAILY [facility] Last Admin: 02/01/21 08:12 Dose: 40 mg Documented by: Hydromorphone HCl (Hydromorphone 0.5 Mg/0.5 Ml Syringe) 0.5 mg IVPUSH Q2H PRN PRN Reason: Pain (severe 7-10) Insulin Human Lispro (Insulin Lispro 100 Unit/Ml 3 Ml Kwikpen) 0 unit SUBCUT QIDACANDBED [facility]; Protocol Last Admin: 02/01/21 22:13 Dose: 1 unit Documented by: Magnesium Oxide (Magnesium Oxide 400 Mg Tab) 400 mg PO BID [facility] Last Admin: 02/01/21 21:16 Dose: 400 mg Documented by: Metformin HCl (Metformin 500 Mg Tab) 1,000 mg PO BID [facility] Last Admin: 02/01/21 21:19 Dose: 1,000 mg Documented by: Ondansetron HCl (Ondansetron 4 Mg/2 Ml Sdv) 4 mg IV Q6H PRN PRN Reason: Nausea/Vomiting Oxycodone HCl (Oxycodone 5 Mg Tab) 5 mg PO Q4H PRN PRN Reason: Pain (moderate 4-6) Last Admin: 02/01/21 11:14 Dose: 5 mg Documented by: Potassium Chloride (Potassium Chloride 10 Meq Tab.Er) 10 meq PO TID [facility] Last Admin: 02/01/21 21:17 Dose: 10 meq Documented by: Sodium Chloride (Sodium Chloride 0.9% 10 Ml Syringe) 10 ml FLUSH ASDIRECTED PRN PRN Reason: Keep Vein Open Discontinued Medications Acetaminophen (Acetaminophen 325 Mg Tab) 650 mg PO Q4H PRN PRN Reason: Pain (Mild 1-3)/fever Last Admin: 01/31/21 02:25 Dose: 650 mg Documented by: Acetaminophen (Acetaminophen 325 Mg Tab) 650 mg PO Q6H [facility] Cyanocobalamin (Cyanocobalamin (Vitamin B12) 1,000 Mcg Tab) 1,000,000 mcg PO DAILY@1200 [facility] Last Admin: 01/31/21 12:21 Dose: Not Given Documented by: Cyanocobalamin (Cyanocobalamin (Vitamin B12) 1,000 Mcg Tab) 100,000 mcg PO DAILY@1200 [facility] Cyanocobalamin (Cyanocobalamin (Vitamin B12) 1,000 Mcg Tab) 1,000 mcg PO DAILY@1200 [facility] Ferrous Sulfate (Ferrous Sulfate 324 Mg Tab.Ec) 324 mg PO TIDAC [facility] Last Admin: 01/31/21 19:15 Dose: Not Given Documented by: Ferrous Sulfate (Ferrous Sulfate 324 Mg Tab.Ec) 324 mg PO ONETIME ONE Stop: 01/31/21 12:16 Last Admin: 01/31/21 12:15 Dose: 324 mg Documented by: Hydromorphone HCl (Hydromorphone 0.5 Mg/0.5 Ml Syringe) 0.5 mg IM ONETIME ONE Stop: 01/30/21 15:37 Last Admin: 01/30/21 17:01 Dose: 0.5 mg Documented by: - Exam Quality Assessment: DVT Prophylaxis. No: Supplemental Oxygen, Urine Catheter General: Alert, Oriented, Cooperative, No Acute Distress HEENT: Pupils Equal, Pupils Reactive, Mucous Membr. Moist/[place] Neck: Supple, Trachea Midline Lungs: Clear to Auscultation, Normal Respiratory Effort Cardiovascular: Regular Rate, Regular Rhythm GI/Abdominal Exam: Normal Bowel Sounds, Soft, Non-Tender, No Distention, No Abnormal Bruit (Female) Exam: Deferred Back Exam: Normal Inspection, Full Range of Motion Extremities: Normal Inspection, Normal Range of Motion, No Pedal Edema, Normal Capillary Refill, Leg Pain (left hip) Peripheral Pulses: 2+: Radial (L), Radial (R), Dorsalis Pedis (L), Dorsalis Pedis (R) Skin: Warm, Dry, Intact Neurological: No New Focal Deficit Psy/Mental Status: Alert, Normal Affect, Normal Mood - Patient Data Lab Results Last 24 hrs: Laboratory Results - last 24 hr 02/01/21 02/01/21 02/01/21 Range/Units 10:58 16:46 20:48 WBC (3.98-10.04) K/mm3 RBC (3.98-5.22) M/mm3 Hgb (11.2-15.7) gm/dl Hct (34.1-44.9) % MCV (79.4-94.8) fl MCH (25.6-32.2) pg MCHC (32.2-35.5) g/dl RDW Std Deviation (36.4-46.3) fL Plt Count (182-369) K/mm3 MPV (9.4-12.3) fl Neut % (Auto) (34.0-71.1) % Lymph % (Auto) (19.3-51.7) % [place] % (Auto) (4.7-12.5) % Eos % (Auto) (0.7-5.8) Baso % (Auto) (0.1-1.2) % Neut # (Auto) (1.56-6.13) K/mm3 Lymph # (Auto) (1.18-3.74) K/mm3 [place] # (Auto) (0.24-0.36) K/mm3 Eos # (Auto) (0.04-0.36) K/mm3 Baso # (Auto) (0.01-0.08) K/mm3 Sodium (136-145) mEq/L Potassium (3.5-5.1) mEq/L Chloride (98-107) mEq/L Carbon Dioxide (21-32) mEq/L Anion Gap (5-15) BUN (7-18) mg/dL Creatinine (0.55-1.02) mg/dL Est Cr Clr Drug Dosing mL/min Estimated GFR (MDRD) (>60) mL/min BUN/Creatinine Ratio (14-18) Glucose (70-99) mg/dL POC Glucose 105 H 121 H 185 H (70-99) mg/dL Calcium (8.5-10.1) mg/dL Magnesium (1.8-2.4) mg/dL Total Bilirubin (0.2-1.0) mg/dL AST (15-37) U/L ALT (14-59) U/L Alkaline Phosphatase (46-116) U/L Total Protein (6.4-8.2) g/dl Albumin (3.4-5.0) g/dl Globulin gm/dL Albumin/Globulin Ratio (1-2) 02/02/21 02/02/21 02/02/21 Range/Units 05:05 05:05 06:20 WBC 7.57 (3.98-10.04) K/mm3 RBC 4.21 (3.98-5.22) M/mm3 Hgb 10.9 L (11.2-15.7) gm/dl Hct 35.1 (34.1-44.9) % MCV 83.4 (79.4-94.8) fl MCH 25.9 (25.6-32.2) pg MCHC 31.1 L (32.2-35.5) g/dl RDW Std Deviation 47.2 H (36.4-46.3) fL Plt Count 514 H (182-369) K/mm3 MPV 8.3 L (9.4-12.3) fl Neut % (Auto) 53.7 (34.0-71.1) % Lymph % (Auto) 28.1 (19.3-51.7) % [place] % (Auto) 13.5 H (4.7-12.5) % Eos % (Auto) 4.0 (0.7-5.8) Baso % (Auto) 0.4 (0.1-1.2) % Neut # (Auto) 4.07 (1.56-6.13) K/mm3 Lymph # (Auto) 2.13 (1.18-3.74) K/mm3 [place] # (Auto) 1.02 H (0.24-0.36) K/mm3 Eos # (Auto) 0.30 (0.04-0.36) K/mm3 Baso # (Auto) 0.03 (0.01-0.08) K/mm3 Sodium 139 (136-145) mEq/L Potassium 4.5 (3.5-5.1) mEq/L Chloride 103 (98-107) mEq/L Carbon Dioxide 26 (21-32) mEq/L Anion Gap 14.5 (5-15) BUN 15 (7-18) mg/dL Creatinine 0.7 (0.55-1.02) mg/dL Est Cr Clr Drug Dosing 48.34 mL/min Estimated GFR (MDRD) > 60 (>60) mL/min BUN/Creatinine Ratio 21.4 H (14-18) Glucose 118 H (70-99) mg/dL POC Glucose 115 H (70-99) mg/dL Calcium 8.5 (8.5-10.1) mg/dL Magnesium 1.9 (1.8-2.4) mg/dL Total Bilirubin 0.3 (0.2-1.0) mg/dL AST 35 (15-37) U/L ALT 51 (14-59) U/L Alkaline Phosphatase 131 H (46-116) U/L Total Protein 6.5 (6.4-8.2) g/dl Albumin 2.5 L (3.4-5.0) g/dl Globulin 4.0 gm/dL Albumin/Globulin Ratio 0.6 L (1-2) Result Diagrams: 02/02/21 05:05 02/02/21 05:05 Sepsis Event Note - Evaluation Sepsis Screening Result: No Definite Risk - Focused Exam Vital Signs: Vital Signs Temp Pulse Resp BP Pulse Ox 02/02/21 04:09 98.2 F 71 18 118/69 98 02/01/21 23:07 98.1 F 77 18 119/96 H 98 02/01/21 21:18 137/62 - Problem List & Annotations (1) Closed left hip fracture SNOMED Code(s): 216582790 Code(s): S72.002A - FRACTURE OF UNSP PART OF NECK OF LEFT FEMUR, INIT Status: Acute Priority: High Current Visit: Yes Qualifiers: Encounter type: initial encounter Qualified Code(s): S72.002A - Fracture of unspecified part of neck of left femur, initial encounter for closed fracture (2) Pain management SNOMED Code(s): 715949544 Code(s): R52 - PAIN, UNSPECIFIED Status: Acute Priority: High Current Visit: Yes (3) Type 2 diabetes mellitus SNOMED Code(s): 37657273 Code(s): E11.9 - TYPE 2 DIABETES MELLITUS WITHOUT COMPLICATIONS Status: Chronic Priority: Medium Current Visit: Yes Qualifiers: Diabetes mellitus intermediate frame tender insulin use: without long-term use Diabetes mellitus complication status: with other specified complication Qualified Code(s): E11.69 - Type 2 diabetes mellitus with other specified complication (4) Crohns disease of small intestine SNOMED Code(s): 15069741 Code(s): K50.00 - CROHN'S DISEASE OF SMALL INTESTINE WITHOUT COMPLICATIONS Status: Chronic Priority: Low Current Visit: No Qualifiers: Digestive disease complication type: unspecified complication Qualified Code(s): K50.019 - Crohn's disease of small intestine with unspecified complications (5) History of anemia SNOMED Code(s): 273475543 Code(s): Z86.2 - PRSNL HISTORY OF [facility] Status: Chronic Priority: Low Current Visit: No - Problem List Review Problem List Initiated/Reviewed/Updated: Yes - Plan Plan:: Slightly comminuted fracture left greater tuberosity of the left femur Unable to discharge from hospital emergency department secondary to pain * Fracture occurred at the clinic entrance when walking through the revolving doors. * CT scan showed the fracture * Given Dilaudid 0.5 mg IV in the emergency department for pain control * Admitted for pain management and physical therapy. Type 2 diabetes * Unknown hemoglobin A1c * On Metformin Crohn's disease * History of small bowel obstruction * No current complaints * No current medications History of anemia likely secondary to Crohn's disease * Currently on iron supplementation 3 times daily 01/31/2021 Patient did well overnight, but this morning she is having more pain. We will increase Tylenol to 975 mg every 6 hours scheduled for pain. Continue on oxycodone and Dilaudid as needed. Magnesium was low at 1.7. Hemoglobin A1c was well controlled at 6.7. Other labs were nonsignificant. 02/01/2021 Patient has improving pain control, but still requires oxycodone as needed. Continue with physical therapy and consult social work job titles for possible placement. 02/02/2021 75-year-old patient admitted to the floor for pain management and possible placement secondary to a left hip fracture after a fall when her foot was tangled in our clinic revolving door. Overall she is doing well. She reports continued pain to her left hip which has been controlled with scheduled Tylenol and as needed oxycodone. We will increase her Tylenol duration between dosing to every 8 hours from every 6. Labs today show WBC of 7.57. Hemoglobin 10.9. Platelet 514,000. Neutrophils are 53.7%. Sodium is 139. Potassium 4.5. Chloride 103. Carbon dioxide 26. Anion gap 14.5. BUN is 15. Creatinine 0.7. GFR is greater than 60. Glucose has been between 105 and 185. Magnesium is 1.9. Bilirubin 0.3. AST 35, ALT 51, alkaline phosphatase 131. Protein 6.5. Albumin is 2.5. Case management and social work are consulted for possible placement. Discharge will pend placement and pain control. Plan * Managed on medical floor * Decrease Tylenol to 650 mg every 8 hours * Continue oxycodone 5 mg every 4 hours as needed and Dilaudid 0.5 mg every 2 hours as needed * Continue home meds * Decrease iron supplementation to once a day since three times a day has no benefit over once a day dosing. * Physical/Occupational therapy consult * director of women's services/Case management consult on Tuesday * VTE prophylaxis with enoxaparin * PCP: Ivette Suarez NP * CODE STATUS: DNR/DNI
[2021-02-02] MEDS: Insulin Lispro 100 Unit/ML 3 ML KwikPen SUBCUT SCH ×4 (08:52→21:01)
--- NOTE | 2021-02-02 10:10 | CT ---
CT left hip Technique: Multiple axial sections of the left hip were obtained. Reconstructed coronal and sagittal images were obtained. Comparison: No prior left hip study is available. Findings: Lumbar spine shows vacuum disc phenomena within the L3-4 and L4-5 discs. Degenerative apophyseal change is also seen within the lumbar spine. Fracture is identified within the greater tuberosity which is slightly comminuted. Alignment is close to anatomic. Mild degenerative change is also noted within the sacroiliac joints with vacuum phenomena. No additional fracture or other bony abnormality is seen. Impression: 1. Slightly comminuted fracture involving the greater tuberosity of the left hip. Alignment is close to anatomic. 2. Degenerative change within the lumbar spine and within the left sacroiliac joint. Diagnostic code #3 MTDD
[2021-02-02] MEDS: metFORMIN 500 MG Tab PO SCH ×2 (10:47→20:52)
[2021-02-02] MEDS: Folic Acid 1 MG Tab PO SCH (10:47)
[2021-02-02] MEDS: Furosemide 40 MG Tab PO SCH (10:47)
[2021-02-02] MEDS: Magnesium Oxide 400 MG Tab PO SCH ×2 (10:47→20:50)
[2021-02-02] MEDS: atorvaSTATin 20 MG Tab PO SCH (10:48)
[2021-02-02] MEDS: Potassium Chloride 10 MEQ Tab.ER PO SCH ×3 (10:48→20:52)
[2021-02-02] MEDS: Enoxaparin 40 MG/0.4 ML Syringe SUBCUT SCH (10:48)
[2021-02-02] MEDS: Cyanocobalamin (Vitamin B12) 1,000 MCG Tab PO SCH (12:53)
[2021-02-02] MEDS: Aspirin 81 MG Tab.Chew PO SCH (20:51)
[2021-02-02] MEDS: cloNIDine 0.1 MG Tab PO SCH (20:51)
[2021-02-03] MEDS: Acetaminophen 325 MG Tab PO SCH ×3 (02:18→17:52)
[2021-02-03] MEDS: Ferrous Sulfate 324 MG Tab.EC PO SCH (07:04)
[2021-02-03] MEDS: Insulin Lispro 100 Unit/ML 3 ML KwikPen SUBCUT SCH ×4 (07:05→21:25)
--- NOTE | 2021-02-03 07:11 | PCM.PN ---
- General Info Date of Service: 02/03/21 Admission Dx/Problem (Free Text): Admission Diagnosis/Problem Admission Diagnosis/Problem Hip fracture due to osteoporosis Functional Status: Reports: Pain Controlled, Tolerating Diet, Ambulating (minimal ), Urinating. Denies: New Symptoms - Review of Systems General: Reports: Weakness. Denies: Fever, Fatigue, Malaise, Chills HEENT: Reports: No Symptoms. Denies: Headaches, Sore Throat Pulmonary: Reports: No Symptoms. Denies: Shortness of Breath, Cough, Wheezing Cardiovascular: Reports: No Symptoms. Denies: Chest Pain, Palpitations, Dyspnea on Exertion, Edema, Lightheadedness Gastrointestinal: Reports: No Symptoms. Denies: Abdominal Pain, Constipation, Diarrhea, Nausea, Vomiting Genitourinary: Reports: No Symptoms. Denies: Pain Musculoskeletal: Reports: Leg Pain (left ), Joint Pain (left hip) Skin: Reports: No Symptoms. Denies: Cyanosis Neurological: Reports: Difficulty Walking, Weakness, Gait Disturbance. Denies: Confusion, Dizziness, Headache, Numbness, Seizure, Syncope, Tingling, Tremors, Trouble Speaking Psychiatric: Reports: No Symptoms - Patient Data Vitals - Most Recent: Last Vital Signs Temp 98.1 F 02/03/21 04:44 Pulse 77 02/03/21 04:44 Resp 18 02/03/21 04:44 BP 110/82 02/03/21 04:44 Pulse Ox 94 L 02/03/21 04:44 Weight - Most Recent: 120 lb 6.4 oz I&O - Last 24 Hours: Intake & Output 02/02/21 02/03/21 02/03/21 22:59 06:59 14:59 Intake Total 300 1000 Output Total 700 700 Balance -400 300 Lab Results Last 24 Hours: Laboratory Results - last 24 hr 02/02/21 02/02/21 02/02/21 Range/Units 10:57 17:21 21:01 POC Glucose 171 H 129 H 116 H (70-99) mg/dL 02/02/21 02/03/21 Range/Units 21:11 07:00 POC Glucose 107 H 114 H (70-99) mg/dL Med Orders - Current: Current Medications Acetaminophen (Acetaminophen 325 Mg Tab) 650 mg PO Q8H [facility] Last Admin: 02/03/21 02:18 Dose: 650 mg Documented by: Aspirin (Aspirin 81 Mg Tab.Chew) 81 mg PO BEDTIME [facility] Last Admin: 02/02/21 20:51 Dose: 81 mg Documented by: Atorvastatin Calcium (Atorvastatin 20 Mg Tab) 10 mg PO DAILY [facility] Last Admin: 02/02/21 10:48 Dose: 10 mg Documented by: Clonidine HCl (Clonidine 0.1 Mg Tab) 0.2 mg PO BEDTIME [facility] Last Admin: 02/02/21 20:51 Dose: 0.2 mg Documented by: Cyanocobalamin (Cyanocobalamin (Vitamin B12) 1,000 Mcg Tab) 1,000 mcg PO DAILY@1200 [facility] Last Admin: 02/02/21 12:53 Dose: 1,000 mcg Documented by: Enoxaparin Sodium (Enoxaparin 40 Mg/0.4 Ml Syringe) 40 mg SUBCUT DAILY [facility] Last Admin: 02/02/21 10:48 Dose: 40 mg Documented by: Ferrous Sulfate (Ferrous Sulfate 324 Mg Tab.Ec) 324 mg PO WITHBREAKFAST [facility] Last Admin: 02/03/21 07:04 Dose: 324 mg Documented by: Folic Acid (Folic Acid 1 Mg Tab) 1 mg PO DAILY [facility] Last Admin: 02/02/21 10:47 Dose: 1 mg Documented by: Furosemide (Furosemide 40 Mg Tab) 40 mg PO DAILY [facility] Last Admin: 02/02/21 10:47 Dose: 40 mg Documented by: Hydromorphone HCl (Hydromorphone 0.5 Mg/0.5 Ml Syringe) 0.5 mg IVPUSH Q2H PRN PRN Reason: Pain (severe 7-10) Insulin Human Lispro (Insulin Lispro 100 Unit/Ml 3 Ml Kwikpen) 0 unit SUBCUT QIDACANDBED [facility]; Protocol Last Admin: 02/03/21 07:05 Dose: Not Given Documented by: Magnesium Oxide (Magnesium Oxide 400 Mg Tab) 400 mg PO BID [facility] Last Admin: 02/02/21 20:50 Dose: 400 mg Documented by: Metformin HCl (Metformin 500 Mg Tab) 1,000 mg PO BID [facility] Last Admin: 02/02/21 20:52 Dose: 1,000 mg Documented by: Ondansetron HCl (Ondansetron 4 Mg/2 Ml Sdv) 4 mg IV Q6H PRN PRN Reason: Nausea/Vomiting Oxycodone HCl (Oxycodone 5 Mg Tab) 5 mg PO Q4H PRN PRN Reason: Pain (moderate 4-6) Last Admin: 02/01/21 11:14 Dose: 5 mg Documented by: Potassium Chloride (Potassium Chloride 10 Meq Tab.Er) 10 meq PO TID [facility] Last Admin: 02/02/21 20:52 Dose: 10 meq Documented by: Senna/Docusate Sodium (Docusate Sodium/Sennosides 50-8.6 Mg Tab) 1 tab PO Q12H PRN PRN Reason: Constipation Sodium Chloride (Sodium Chloride 0.9% 10 Ml Syringe) 10 ml FLUSH ASDIRECTED PRN PRN Reason: Keep Vein Open Discontinued Medications Acetaminophen (Acetaminophen 325 Mg Tab) 650 mg PO Q4H PRN PRN Reason: Pain (Mild 1-3)/fever Last Admin: 01/31/21 02:25 Dose: 650 mg Documented by: Acetaminophen (Acetaminophen 325 Mg Tab) 650 mg PO Q6H [facility] Acetaminophen (Acetaminophen 325 Mg Tab) 650 mg PO Q6H [facility] Last Admin: 02/02/21 05:54 Dose: 650 mg Documented by: Cyanocobalamin (Cyanocobalamin (Vitamin B12) 1,000 Mcg Tab) 1,000,000 mcg PO DAILY@1200 [facility] Last Admin: 01/31/21 12:21 Dose: Not Given Documented by: Cyanocobalamin (Cyanocobalamin (Vitamin B12) 1,000 Mcg Tab) 100,000 mcg PO DAILY@1200 [facility] Cyanocobalamin (Cyanocobalamin (Vitamin B12) 1,000 Mcg Tab) 1,000 mcg PO DAILY@1200 [facility] Ferrous Sulfate (Ferrous Sulfate 324 Mg Tab.Ec) 324 mg PO TIDAC [facility] Last Admin: 01/31/21 19:15 Dose: Not Given Documented by: Ferrous Sulfate (Ferrous Sulfate 324 Mg Tab.Ec) 324 mg PO ONETIME ONE Stop: 01/31/21 12:16 Last Admin: 01/31/21 12:15 Dose: 324 mg Documented by: Hydromorphone HCl (Hydromorphone 0.5 Mg/0.5 Ml Syringe) 0.5 mg IM ONETIME ONE Stop: 01/30/21 15:37 Last Admin: 01/30/21 17:01 Dose: 0.5 mg Documented by: - Exam Quality Assessment: DVT Prophylaxis. No: Supplemental Oxygen, Urine Catheter General: Alert, Oriented, Cooperative, No Acute Distress HEENT: Pupils Equal, Pupils Reactive, Mucous Membr. Moist/[place] Neck: Supple, Trachea Midline Lungs: Clear to Auscultation, Normal Respiratory Effort Cardiovascular: Regular Rate, Regular Rhythm GI/Abdominal Exam: Normal Bowel Sounds, Soft, Non-Tender, No Distention (Female) Exam: Deferred Back Exam: Normal Inspection, Full Range of Motion Extremities: Normal Inspection, Normal Range of Motion, No Pedal Edema, Normal Capillary Refill, Leg Pain (left hip), Limited Range of Motion (2/2 pain ) Skin: Warm, Dry, Intact Neurological: No New Focal Deficit Psy/Mental Status: Alert, Normal Affect, Normal Mood - Patient Data Lab Results Last 24 hrs: Laboratory Results - last 24 hr 02/02/21 02/02/21 02/02/21 Range/Units 10:57 17:21 21:01 POC Glucose 171 H 129 H 116 H (70-99) mg/dL 02/02/21 02/03/21 Range/Units 21:11 07:00 POC Glucose 107 H 114 H (70-99) mg/dL Result Diagrams: 02/03/21 09:13 02/03/21 10:20 Sepsis Event Note - Evaluation Sepsis Screening Result: No Definite Risk - Focused Exam Vital Signs: Vital Signs Temp Pulse Resp BP Pulse Ox 02/03/21 04:44 98.1 F 77 18 110/82 94 L 02/02/21 23:17 97.3 F 76 18 94/47 L 94 L 02/02/21 20:51 114/88 02/02/21 19:32 98.4 F 77 20 114/88 98 - Problem List & Annotations (1) Closed left hip fracture SNOMED Code(s): 947858991 Code(s): S72.002A - FRACTURE OF UNSP PART OF NECK OF LEFT FEMUR, INIT Status: Acute Priority: High Current Visit: Yes Qualifiers: Encounter type: initial encounter Qualified Code(s): S72.002A - Fracture of unspecified part of neck of left femur, initial encounter for closed fracture (2) Pain management SNOMED Code(s): 674781291 Code(s): R52 - PAIN, UNSPECIFIED Status: Acute Priority: High Current Visit: Yes (3) Type 2 diabetes mellitus SNOMED Code(s): 69552988 Code(s): E11.9 - TYPE 2 DIABETES MELLITUS WITHOUT COMPLICATIONS Status: Chronic Priority: Medium Current Visit: Yes Qualifiers: Diabetes mellitus alf insulin use: without intermediate manager use Diabetes mellitus complication status: with other specified complication Qualified Code(s): E11.69 - Type 2 diabetes mellitus with other specified complication (4) Crohns disease of small intestine SNOMED Code(s): 30486847 Code(s): K50.00 - CROHN'S DISEASE OF SMALL INTESTINE WITHOUT COMPLICATIONS Status: Chronic Priority: Low Current Visit: No Qualifiers: Digestive disease complication type: unspecified complication Qualified Code(s): K50.019 - Crohn's disease of small intestine with unspecified complications (5) History of anemia SNOMED Code(s): 387635367 Code(s): Z86.2 - PRSNL HISTORY OF DIS OF THE BLD/BLD-FORM ORG/IMMUN MECHNSM Status: Chronic Priority: Low Current Visit: No - Problem List Review Problem List Initiated/Reviewed/Updated: Yes - My Orders Last 24 Hours: My Active Orders 02/02/21 09:24 Docusate Sodium/Sennosides [Senna Plus] 1 tab PO Q12H PRN 02/02/21 09:25 Consult to Case Management/Electronic Scale Assembler And Tester [CONS] Routine OT Evaluation and Treatment [CONS] Routine 02/02/21 09:30 Acetaminophen [TylenoL] 650 mg PO Q8H 02/02/21 10:50 Weight bearing status [OM.PC] Routine 02/03/21 07:10 BASIC METABOLIC PANEL,BMP [CHEM] Routine CBC WITH AUTO DIFF [HEME] Routine MAGNESIUM [CHEM] Routine - Plan Plan:: Slightly comminuted fracture left greater tuberosity of the left femur Unable to discharge from hospital emergency department secondary to pain * Fracture occurred at the clinic entrance when walking through the revolving doors. * CT scan showed the fracture * Given Dilaudid 0.5 mg IV in the emergency department for pain control * Admitted for pain management and physical therapy. Type 2 diabetes * Unknown hemoglobin A1c * On Metformin Crohn's disease * History of small bowel obstruction * No current complaints * No current medications History of anemia likely secondary to Crohn's disease * Currently on iron supplementation 3 times daily 01/31/2021 Patient did well overnight, but this morning she is having more pain. We will increase Tylenol to 975 mg every 6 hours scheduled for pain. Continue on oxycodone and Dilaudid as needed. Magnesium was low at 1.7. Hemoglobin A1c was well controlled at 6.7. Other labs were nonsignificant. 02/01/2021 Patient has improving pain control, but still requires oxycodone as needed. Mynor kent with physical therapy and consult social services assistant for possible placement. 02/02/2021 75-year-old patient admitted to the floor for pain management and possible placement secondary to a left hip fracture after a fall when her foot was tangled in our clinic revolving door. Overall she is doing well. She reports continued pain to her left hip which has been controlled with scheduled Tylenol and as needed oxycodone. We will increase her Tylenol duration between dosing to every 8 hours from every 6. Labs today show WBC of 7.57. Hemoglobin 10.9. Platelet 514,000. Neutrophils are 53.7%. Sodium is 139. Potassium 4.5. Chloride 103. Carbon dioxide 26. Anion gap 14.5. BUN is 15. Creatinine 0.7. GFR is greater than 60. Glucose has been between 105 and 185. Magnesium is 1.9. Bilirubin 0.3. AST 35, ALT 51, alkaline phosphatase 131. Protein 6.5. Albumin is 2.5. Case management and social work are consulted for possible placement. Discharge will pend placement and pain control. 02/03/2021 75-year-old female admitted to the floor with a nonoperative left hip fracture. She continues to do well. Pain is well controlled. We were contacted by the clinic who states patient had a positive occult stool. Nursing did note patient stools are black. Patient is on daily iron supplementation so this is not surprising and her hemoglobin has been very stable. WBC today was 6.46. Hemoglobin 10.9. Platelet 547,000. Neutrophils were 56.0. Sodium 138. Potassium 4.6. Chloride 102. Carbon dioxide 26. Anion gap 14.6. BUN is 18. Creatinine 0.8. GFR is greater than 60. Glucose is between 178 and 107. Magnesium is 2.0. We will not recheck labs tomorrow. She has been accepted at [facility]. Plan will be to discharge tomorrow. Plan * Managed on medical floor * Tylenol to 650 mg every 8 hours * Continue oxycodone 5 mg every 4 hours as needed and Dilaudid 0.5 mg every 2 hours as needed * Continue home meds * Decrease iron supplementation to once a day since three times a day has no be nefit over once a day dosing. * Physical/Occupational therapy consult * marketing services manager/Case management * VTE prophylaxis with enoxaparin * PCP: Ivette Suarez NP * CODE STATUS: DNR/DNI LOS >96 Hrs pending placement. Likely discharge tomorrow to [facility].
[2021-02-03] MEDS: Folic Acid 1 MG Tab PO SCH (08:35)
[2021-02-03] MEDS: metFORMIN 500 MG Tab PO SCH ×2 (08:35→21:24)
[2021-02-03] MEDS: Furosemide 40 MG Tab PO SCH (08:35)
[2021-02-03] MEDS: Enoxaparin 40 MG/0.4 ML Syringe SUBCUT SCH (08:35)
[2021-02-03] MEDS: Potassium Chloride 10 MEQ Tab.ER PO SCH ×3 (08:35→21:24)
[2021-02-03] MEDS: atorvaSTATin 20 MG Tab PO SCH (08:35)
[2021-02-03] MEDS: Magnesium Oxide 400 MG Tab PO SCH ×2 (08:36→21:23)
[2021-02-03] MEDS: Cyanocobalamin (Vitamin B12) 1,000 MCG Tab PO SCH (11:33)
[2021-02-03] MEDS: Aspirin 81 MG Tab.Chew PO SCH (21:23)
[2021-02-03] MEDS: cloNIDine 0.1 MG Tab PO SCH (21:24)
[2021-02-04] MEDS: Acetaminophen 325 MG Tab PO SCH ×3 (01:45→11:04)
[2021-02-04] MEDS: Ferrous Sulfate 324 MG Tab.EC PO SCH (07:38)
[2021-02-04] MEDS: Insulin Lispro 100 Unit/ML 3 ML KwikPen SUBCUT SCH ×2 (07:39→11:20)
[2021-02-04] MEDS: Potassium Chloride 10 MEQ Tab.ER PO SCH (08:09)
[2021-02-04] MEDS: Furosemide 40 MG Tab PO SCH (08:10)
[2021-02-04] MEDS: metFORMIN 500 MG Tab PO SCH (08:10)
[2021-02-04] MEDS: Magnesium Oxide 400 MG Tab PO SCH (08:11)
[2021-02-04] MEDS: Folic Acid 1 MG Tab PO SCH (08:11)
[2021-02-04] MEDS: Enoxaparin 40 MG/0.4 ML Syringe SUBCUT SCH (08:12)
[2021-02-04] MEDS: atorvaSTATin 20 MG Tab PO SCH (08:12)
--- NOTE | 2021-02-04 10:31 | PCM.DCSUM1 ---
<Malik Miles - Last Filed: 02/04/21 11:42> Discharge Summary - Hospital Course HPI Initial Comments: 75-year-old female with history of diabetes, Crohn's disease, hyperlipidemia, hypertension, factor V Leiden mutation with history of DVT, Subclinical hypothyroidism, anemia, degenerative joint disease of the lumbar spine was walking into the clinic today when her left foot got caught on the revolving doors as they closed. Unfortunately, she fell and sustained a slightly comminuted fracture of the left greater tuberosity of her left femur. In the emergency department Dr. Alaniz was consulted who recommended patient can do weightbearing as tolerated with a walker. Unfortunately she could not manage the pain in the emergency department so she was admitted to the hospital for pain management and physical therapy. Patient states that at rest her pain is 5 out of 10 and it is severe and sharp with walking at 10 out of 10. Walking or any weightbearing is much worse than at rest which makes it better. Diagnosis: Stroke: No - Discharge Data Discharge Date: 02/04/21 (Admit date: 01/30/2021) Discharge Disposition: DC/Tfer to SNF 03 Condition: Good - Referral to Home Health Primary Care Physician: Ivette Suarez NP - Discharge Diagnosis/Problem(s) (1) Closed left hip fracture SNOMED Code(s): 833470208 ICD Code: S72.002A - FRACTURE OF UNSP PART OF NECK OF LEFT FEMUR, INIT Status: Acute Priority: High Qualifiers: Encounter type: initial encounter Qualified Code(s): S72.002A - Fracture of unspecified part of neck of left femur, initial encounter for closed fracture (2) Pain management SNOMED Code(s): 461326867 ICD Code: R52 - PAIN, UNSPECIFIED Status: Acute Priority: High (3) Type 2 diabetes mellitus SNOMED Code(s): 32227164 ICD Code: E11.9 - TYPE 2 DIABETES MELLITUS WITHOUT COMPLICATIONS Status: Chronic Priority: Medium Qualifiers: Diabetes mellitus terminal block assembler insulin use: without intermediate use Diabetes mellitus complication status: with other specified complication Qualified Code(s): E11.69 - Type 2 diabetes mellitus with other specified complication (4) Crohns disease of small intestine SNOMED Code(s): 95719684 ICD Code: K50.00 - CROHN'S DISEASE OF SMALL INTESTINE WITHOUT COMPLICATIONS Status: Chronic Priority: Low Qualifiers: Digestive disease complication type: unspecified complication Qualified Code(s): K50.019 - Crohn's disease of small intestine with unspecified complications (5) History of anemia SNOMED Code(s): 331674159 ICD Code: Z86.2 - PRSNL HISTORY OF DIS OF THE BLD/BLD-FORM ORG/IMMUN MECHNSM Status: Chronic Priority: Low - Patient Summary/Data Consults: Consultations 01/30/21 20:20 PT Evaluation and Treatment [CONS] Routine 01/31/21 14:32 Consult to Speech Language Pathology [PRIVATE BANKER Evaluation and Treatment] [CONS] Routine 02/02/21 09:25 Consult to Case Management/Automotive Exhaust Emissions Technician [CONS] Routine OT Evaluation and Treatment [CONS] Routine Labs Pending at D/C: None Recommended Follow-up Testing/Procedures: Follow-up with primary care provider within 7 to 10 days of discharge, sooner if needed. * Discharged on Tylenol scheduled for pain and as needed oxycodone * Continue PT/OT at SNF * All home medications continued * Discharged to [facility]. Follow-up with orthopedics within 10 to 14 days of discharge Hospital Course: This is a 75-year-old female who became entangled with our clinic doors while coming for an appointment resulting in a fall and a slightly comminuted fracture of the left greater tuberosity of the left femur. Orthopedics did reportedly review the case while patient was in the ED and determined she is nonsurgical and can weight-bear as tolerated. In the ED patient was having difficulty with pain and ambulation with subsequent admitted to the floor for pain management and PT/OT. She carries a history of type 2 diabetes, Crohn's disease, and anemia. Pain was well controlled with Tylenol and we have been decreasing the dosing for this. She is currently at 650 mg Tylenol every 8 scheduled and this will continue at discharge. As needed oxycodone has been used and this will be sent at discharge as well for breakthrough pain. Patient was working with PT and OT who are recommending SNF placement. She did undergo a cognitive evaluation and scored a 7 out of 30 which puts her in the range for dementia. She was noted to have black stools while here and reportedly had a positive o ccult stool in the clinic, however she is on iron supplementation and this is not surprising. Hemoglobin remained stable. Labs overall remained stable. She was ultimately accepted at [facility] for rehabilitation. She had been having some diarrhea while here, which the patient reports is chronic for her. C. difficile test was obtained and was negative. She discharged to [facility] today. Home medications were all continued. She will be discharged on every 8 hours scheduled Tylenol and PCP may decrease this as patient's pain level improves. She was sent as needed oxycodone for breakthrough pain. Patient was noted to have low magnesium levels here, which were supplemented. She will be discharged on 400 mg daily supplementation for 3 days. PCP should follow-up with this. Prescriptions were sent to [facility] pharmacy. Recommend follow-up with primary care provider within 7 to 10 days of discharge, sooner if needed. Recommend follow-up with orthopedics within 10 to 14 days of discharge, sooner if needed. Recommend recheck CBC, CMP, and magnesium in follow-up. - Patient Instructions Diet: Diabetic Diet Activity: As Tolerated, Full Weight Bearing Driving: Do Not Drive Showering/Bathing: May Shower Notify Provider of: Fever, Increased Pain, Nausea and/or Vomiting Other/Special Instructions: Follow-up with primary care provider within 7 to 10 days of discharge, sooner if needed. You are prescribed Tylenol scheduled for pain. You may take oxycodone as needed for severe pain. Oxycodone is a narcotic and may lead to constipation. Take as needed laxative/stool softeners. Do not drive or operate machinery while on this medication. Continue PT/OT at [facility]. Recommend follow-up with orthopedics within 10 to 14 days. Resume home medications as directed. Your magnesium was low here and you will be sent on 3 days of oral supplementation. Follow-up with primary care regarding this. Should symptoms return or worsen contact primary care provider or return to the emergency room. - Discharge Plan *PRESCRIPTION DRUG MONITORING PROGRAM REVIEWED*: No *COPY OF PRESCRIPTION DRUG MONITORING REPORT IN PATIENT GAVIN: No Prescriptions/Med Rec: Magnesium Oxide 400 mg PO DAILY #3 tablet oxyCODONE 5 mg PO Q6H PRN #6 tablet PRN Reason: Pain (Moderate 4-6) Acetaminophen [Tylenol] 650 mg PO Q8H #40 tablet Home Medications: Home Meds Aspirin 81 mg PO BEDTIME 08/15/15 [History] Calcium Carbonate [Calcium] 1,200 mg PO BID 08/15/15 [History] Cyanocobalamin (Vitamin B-12) [B-12] 1,000 mg PO DAILY 08/15/15 [History] Ferrous Sulfate [Iron] 325 mg PO TID 08/15/15 [History] Folic Acid 1,000 mcg PO DAILY 08/15/15 [History] Furosemide 1 tab PO DAILY 08/15/15 [History] Potassium Chloride [Klor-Con 10] 10 meq PO TID 08/15/15 [History] cloNIDine [Catapres] 0.2 mg PO BEDTIME 08/15/15 [History] metFORMIN HCl [Metformin HCl] 1,000 mg PO BID 08/15/15 [History] Pnv No.121/Iron/Folic Acid [ Multivitamin Tablet] 1 tab PO DAILY 05/26/18 [History] Ondansetron [Zofran ODT] 4 mg PO Q4HR PRN 05/22/20 [History] atorvaSTATin [Lipitor] 1 tab PO DAILY 05/22/20 [History] Acetaminophen [Tylenol] 650 mg PO Q8H #40 tablet 02/04/21 [Rx] Magnesium Oxide 400 mg PO DAILY #3 tablet 02/04/21 [Rx] oxyCODONE 5 mg PO Q6H PRN #6 tablet 02/04/21 [Rx] Oxygen Therapy Mode: Room Air Patient Handouts: Hip Stress Fracture, Type 2 Diabetes Mellitus, Self-Care, Adult Forms: ED Department Discharge Referrals: Mervin Emmanuel MD [Ordering Only Provider] - (Provider to see on rounds) - Discharge Summary/Plan Comment DC Time >30 min.: No Total # of Minutes for Discharge Time: 25 - General Info Date of Service: 02/04/21 Admission Dx/Problem (Free Text: Admission Diagnosis/Problem Admission Diagnosis/Problem Hip fracture due to osteoporosis Functional Status: Reports: Pain Controlled, Tolerating Diet, Ambulating, Urinating. Denies: New Symptoms - Review of Systems General: Reports: No Symptoms, Weakness (improving). Denies: Fever, Fatigue, Malaise, Chills HEENT: Reports: No Symptoms. Denies: Headaches, Sore Throat Pulmonary: Reports: No Symptoms. Denies: Shortness of Breath, Cough, Sputum, Hemoptysis, Wheezing Cardiovascular: Reports: No Symptoms. Denies: Chest Pain, Palpitations, Dyspnea on Exertion, Edema Gastrointestinal: Reports: No Symptoms. Denies: Abdominal Pain, Constipation, Diarrhea, Nausea, Vomiting Genitourinary: Reports: No Symptoms. Denies: Pain Musculoskeletal: Reports: Leg Pain (left hip pain with movement ) Skin: Reports: No Symptoms. Denies: Cyanosis Neurological: Reports: Difficulty Walking, Weakness, Gait Disturbance. Denies: Confusion, Dizziness, Headache, Numbness, Pre-Existing Deficit, Seizure, Syncope, Tingling, Trouble Speaking, Change in Speech Psychiatric: Reports: No Symptoms - Patient Data Vitals - Most Recent: Last Vital Signs Temp 97.5 F 02/04/21 07:59 Pulse 77 02/04/21 07:59 Resp 19 02/04/21 07:59 BP 129/59 L 02/04/21 07:59 Pulse Ox 100 02/04/21 07:59 Weight - Most Recent: 117 lb 8 oz I&O - Last 24 hours: Intake & Output 02/03/21 02/04/21 02/04/21 22:59 06:59 14:59 Intake Total 1095 200 Output Total 400 900 Balance 695 -700 Lab Results - Last 24 hrs: Laboratory Results - last 24 hr 02/03/21 02/03/21 02/03/21 Range/Units 10:20 11:13 17:02 Sodium 138 (136-145) mEq/L Potassium 4.6 (3.5-5.1) mEq/L Chloride 102 (98-107) mEq/L Carbon Dioxide 26 (21-32) mEq/L Anion Gap 14.6 (5-15) BUN 18 (7-18) mg/dL Creatinine 0.8 (0.55-1.02) mg/dL Est Cr Clr Drug Dosing 42.30 mL/min Estimated GFR (MDRD) > 60 (>60) mL/min BUN/Creatinine Ratio 22.5 H (14-18) Glucose 178 H (70-99) mg/dL POC Glucose 109 H 108 H (70-99) mg/dL Calcium 8.8 (8.5-10.1) mg/dL Magnesium 2.0 (1.8-2.4) mg/dL C.difficile 027-NAP1-B1 C. difficile Tox (PCR) SARS-CoV-2 RNA ([place]) (NEGATIVE) 02/03/21 02/04/21 02/04/21 Range/Units 20:57 05:15 07:15 Sodium (136-145) mEq/L Potassium (3.5-5.1) mEq/L Chloride (98-107) mEq/L Carbon Dioxide (21-32) mEq/L Anion Gap (5-15) BUN (7-18) mg/dL Creatinine (0.55-1.02) mg/dL Est Cr Clr Drug Dosing mL/min Estimated GFR (MDRD) (>60) mL/min BUN/Creatinine Ratio (14-18) Glucose (70-99) mg/dL POC Glucose 105 H 122 H (70-99) mg/dL Calcium (8.5-10.1) mg/dL Magnesium (1.8-2.4) mg/dL C.difficile 027-NAP1-B1 C. difficile Tox (PCR) SARS-CoV-2 RNA ([place]) Negative (NEGATIVE) 02/04/21 Range/Units 07:20 Sodium (136-145) mEq/L Potassium (3.5-5.1) mEq/L Chloride (98-107) mEq/L Carbon Dioxide (21-32) mEq/L Anion Gap (5-15) BUN (7-18) mg/dL Creatinine (0.55-1.02) mg/dL Est Cr Clr Drug Dosing mL/min Estimated GFR (MDRD) (>60) mL/min BUN/Creatinine Ratio (14-18) Glucose (70-99) mg/dL POC Glucose (70-99) mg/dL Calcium (8.5-10.1) mg/dL Magnesium (1.8-2.4) mg/dL C.difficile 027-NAP1-B1 Presumptive negative C. difficile Tox (PCR) Negative SARS-CoV-2 RNA ([place]) (NEGATIVE) Med Orders - Current: Current Medications Acetaminophen (Acetaminophen 325 Mg Tab) 650 mg PO Q8H [facility] Last Admin: 02/04/21 04:58 Dose: 650 mg Documented by: Aspirin (Aspirin 81 Mg Tab.Chew) 81 mg PO BEDTIME [facility] Last Admin: 02/03/21 21:23 Dose: 81 mg Documented by: Atorvastatin Calcium (Atorvastatin 20 Mg Tab) 10 mg PO DAILY [facility] Last Admin: 02/04/21 08:12 Dose: 10 mg Documented by: Clonidine HCl (Clonidine 0.1 Mg Tab) 0.2 mg PO BEDTIME [facility] Last Admin: 02/03/21 21:24 Dose: 0.2 mg Documented by: Cyanocobalamin (Cyanocobalamin (Vitamin B12) 1,000 Mcg Tab) 1,000 mcg PO DAILY@1200 [facility] Last Admin: 02/03/21 11:33 Dose: 1,000 mcg Documented by: Enoxaparin Sodium (Enoxaparin 40 Mg/0.4 Ml Syringe) 40 mg SUBCUT DAILY [facility] Last Admin: 02/04/21 08:12 Dose: 40 mg Documented by: Ferrous Sulfate (Ferrous Sulfate 324 Mg Tab.Ec) 324 mg PO WITHBREAKFAST [facility] Last Admin: 02/04/21 07:38 Dose: 324 mg Documented by: Folic Acid (Folic Acid 1 Mg Tab) 1 mg PO DAILY [facility] Last Admin: 02/04/21 08:11 Dose: 1 mg Documented by: Furosemide (Furosemide 40 Mg Tab) 40 mg PO DAILY [facility] Last Admin: 02/04/21 08:10 Dose: 40 mg Documented by: Hydromorphone HCl (Hydromorphone 0.5 Mg/0.5 Ml Syringe) 0.5 mg IVPUSH Q2H PRN PRN Reason: Pain (severe 7-10) Insulin Human Lispro (Insulin Lispro 100 Unit/Ml 3 Ml Kwikpen) 0 unit SUBCUT QIDACANDBED [facility]; Protocol Last Admin: 02/04/21 07:39 Dose: Not Given Documented by: Magnesium Oxide (Magnesium Oxide 400 Mg Tab) 400 mg PO BID [facility] Last Admin: 02/04/21 08:11 Dose: 400 mg Documented by: Metformin HCl (Metformin 500 Mg Tab) 1,000 mg PO BID [facility] Last Admin: 02/04/21 08:10 Dose: 1,000 mg Documented by: Ondansetron HCl (Ondansetron 4 Mg/2 Ml Sdv) 4 mg IV Q6H PRN PRN Reason: Nausea/Vomiting Oxycodone HCl (Oxycodone 5 Mg Tab) 5 mg PO Q4H PRN PRN Reason: Pain (moderate 4-6) Last Admin: 02/01/21 11:14 Dose: 5 mg Documented by: Potassium Chloride (Potassium Chloride 10 Meq Tab.Er) 10 meq PO TID [facility] Last Admin: 02/04/21 08:09 Dose: 10 meq Documented by: Senna/Docusate Sodium (Docusate Sodium/Sennosides 50-8.6 Mg Tab) 1 tab PO Q12H PRN PRN Reason: Constipation Sodium Chloride (Sodium Chloride 0.9% 10 Ml Syringe) 10 ml FLUSH ASDIRECTED PRN PRN Reason: Keep Vein Open Discontinued Medications Acetaminophen (Acetaminophen 325 Mg Tab) 650 mg PO Q4H PRN PRN Reason: Pain (Mild 1-3)/fever Last Admin: 01/31/21 02:25 Dose: 650 mg Documented by: Acetaminophen (Acetaminophen 325 Mg Tab) 650 mg PO Q6H [facility] Acetaminophen (Acetaminophen 325 Mg Tab) 650 mg PO Q6H [facility] Last Admin: 02/02/21 05:54 Dose: 650 mg Documented by: Cyanocobalamin (Cyanocobalamin (Vitamin B12) 1,000 Mcg Tab) 1,000,000 mcg PO DAILY@1200 [facility] Last Admin: 01/31/21 12:21 Dose: Not Given Documented by: Cyanocobalamin (Cyanocobalamin (Vitamin B12) 1,000 Mcg Tab) 100,000 mcg PO DAILY@1200 [facility] Cyanocobalamin (Cyanocobalamin (Vitamin B12) 1,000 Mcg Tab) 1,000 mcg PO DAILY@1200 [facility] Ferrous Sulfate (Ferrous Sulfate 324 Mg Tab.Ec) 324 mg PO TIDAC [facility] Last Admin: 01/31/21 19:15 Dose: Not Given Documented by: Ferrous Sulfate (Ferrous Sulfate 324 Mg Tab.Ec) 324 mg PO ONETIME ONE Stop: 01/31/21 12:16 Last Admin: 01/31/21 12:15 Dose: 324 mg Documented by: Hydromorphone HCl (Hydromorphone 0.5 Mg/0.5 Ml Syringe) 0.5 mg IM ONETIME ONE Stop: 01/30/21 15:37 Last Admin: 01/30/21 17:01 Dose: 0.5 mg Documented by: - Exam Quality Assessment: Reports: DVT Prophylaxis. Denies: Supplemental Oxygen, Urine Catheter General: Reports: Alert, Oriented, Cooperative, No Acute Distress HEENT: Reports: Pupils Equal, Pupils Reactive, Mucous Membr. Moist/[place] Neck: Reports: Supple, Trachea Midline Lungs: Reports: Clear to Auscultation, Normal Respiratory Effort Cardiovascular: Reports: Regular Rate, Regular Rhythm GI/Abdominal Exam: Normal Bowel Sounds, Soft, Non-Tender, No Distention (Female) Exam: Deferred Rectal (Female) Exam: Deferred Back Exam: Reports: Normal Inspection, Full Range of Motion Extremities: Normal Inspection, Normal Range of Motion, Non-Tender, No Pedal Edema, Normal Capillary Refill Skin: Reports: Warm, Dry, Intact Neurological: Reports: No New Focal Deficit Psy/Mental Status: Reports: Alert, Normal Affect, Normal Mood <Fabrizio Vinson Jr - Last Filed: 02/04/21 20:01> Discharge Summary - Referral to Home Health Primary Care Physician: Ivette Suarez NP - Patient Summary/Data Consults: Consultations 01/30/21 20:20 PT Evaluation and Treatment [CONS] Routine 01/31/21 14:32 Consult to Speech Language Pathology [PRIVATE BANKER Evaluation and Treatment] [CONS] Ro utine 02/02/21 09:25 Consult to Case Management/Automotive Exhaust Emissions Technician [CONS] Routine OT Evaluation and Treatment [CONS] Routine - Discharge Summary/Plan Comment Discharge Summary/Plan Comment: Case discussed in full. Agree with evaluation, assessment and plan. -Luis Armando Washington Jr. - Patient Data Vitals - Most Recent: Last Vital Signs Temp 98.2 F 02/04/21 11:19 Pulse 81 02/04/21 11:19 Resp 16 02/04/21 11:19 BP 132/54 L 02/04/21 11:19 Pulse Ox 100 02/04/21 11:19 I&O - Last 24 hours: Intake & Output 02/04/21 02/04/21 02/04/21 06:59 14:59 22:59 Intake Total 200 360 Output Total 900 Balance -700 360 Lab Results - Last 24 hrs: Laboratory Results - last 24 hr 02/03/21 02/04/21 02/04/21 Range/Units 20:57 05:15 07:15 POC Glucose 105 H 122 H (70-99) mg/dL C.difficile 027-NAP1-B1 C. difficile Tox (PCR) SARS-CoV-2 RNA ([place]) Negative (NEGATIVE) 02/04/21 02/04/21 Range/Units 07:20 11:15 POC Glucose 111 H (70-99) mg/dL C.difficile 027-NAP1-B1 Presumptive negative C. difficile Tox (PCR) Negative SARS-CoV-2 RNA ([place]) (NEGATIVE) Med Orders - Current: Current Medications Discontinued Medications Acetaminophen (Acetaminophen 325 Mg Tab) 650 mg PO Q4H PRN PRN Reason: Pain (Mild 1-3)/fever Last Admin: 01/31/21 02:25 Dose: 650 mg Documented by: Acetaminophen (Acetaminophen 325 Mg Tab) 650 mg PO Q6H [facility] Acetaminophen (Acetaminophen 325 Mg Tab) 650 mg PO Q6H [facility] Last Admin: 02/02/21 05:54 Dose: 650 mg Documented by: Acetaminophen (Acetaminophen 325 Mg Tab) 650 mg PO Q8H [facility] Last Admin: 02/04/21 11:04 Dose: 650 mg Documented by: Aspirin (Aspirin 81 Mg Tab.Chew) 81 mg PO BEDTIME [facility] Last Admin: 02/03/21 21:23 Dose: 81 mg Documented by: Atorvastatin Calcium (Atorvastatin 20 Mg Tab) 10 mg PO DAILY [facility] Last Admin: 02/04/21 08:12 Dose: 10 mg Documented by: Clonidine HCl (Clonidine 0.1 Mg Tab) 0.2 mg PO BEDTIME [facility] Last Admin: 02/03/21 21:24 Dose: 0.2 mg Documented by: Cyanocobalamin (Cyanocobalamin (Vitamin B12) 1,000 Mcg Tab) 1,000,000 mcg PO DAILY@1200 [facility] Last Admin: 01/31/21 12:21 Dose: Not Given Documented by: Cyanocobalamin (Cyanocobalamin (Vitamin B12) 1,000 Mcg Tab) 100,000 mcg PO DAILY@1200 [facility] Cyanocobalamin (Cyanocobalamin (Vitamin B12) 1,000 Mcg Tab) 1,000 mcg PO DAILY@1200 [facility] Cyanocobalamin (Cyanocobalamin (Vitamin B12) 1,000 Mcg Tab) 1,000 mcg PO DAILY@1200 [facility] Last Admin: 02/04/21 11:36 Dose: 1,000 mcg Documented by: Enoxaparin Sodium (Enoxaparin 40 Mg/0.4 Ml Syringe) 40 mg SUBCUT DAILY [facility] Last Admin: 02/04/21 08:12 Dose: 40 mg Documented by: Ferrous Sulfate (Ferrous Sulfate 324 Mg Tab.Ec) 324 mg PO TIDAC [facility] Last Admin: 01/31/21 19:15 Dose: Not Given Documented by: Ferrous Sulfate (Ferrous Sulfate 324 Mg Tab.Ec) 324 mg PO ONETIME ONE Stop: 01/31/21 12:16 Last Admin: 01/31/21 12:15 Dose: 324 mg Documented by: Ferrous Sulfate (Ferrous Sulfate 324 Mg Tab.Ec) 324 mg PO WITHBREAKFAST [facility] Last Admin: 02/04/21 07:38 Dose: 324 mg Documented by: Folic Acid (Folic Acid 1 Mg Tab) 1 mg PO DAILY [facility] Last Admin: 02/04/21 08:11 Dose: 1 mg Documented by: Furosemide (Furosemide 40 Mg Tab) 40 mg PO DAILY [facility] Last Admin: 02/04/21 08:10 Dose: 40 mg Documented by: Hydromorphone HCl (Hydromorphone 0.5 Mg/0.5 Ml Syringe) 0.5 mg IM ONETIME ONE Stop: 01/30/21 15:37 Last Admin: 01/30/21 17:01 Dose: 0.5 mg Documented by: Hydromorphone HCl (Hydromorphone 0.5 Mg/0.5 Ml Syringe) 0.5 mg IVPUSH Q2H PRN PRN Reason: Pain (severe 7-10) Insulin Human Lispro (Insulin Lispro 100 Unit/Ml 3 Ml Kwikpen) 0 unit SUBCUT QIDACANDBED [facility]; Protocol Last Admin: 02/04/21 11:20 Dose: Not Given Documented by: Magnesium Oxide (Magnesium Oxide 400 Mg Tab) 400 mg PO BID [facility] Last Admin: 02/04/21 08:11 Dose: 400 mg Documented by: Metformin HCl (Metformin 500 Mg Tab) 1,000 mg PO BID [facility] Last Admin: 02/04/21 08:10 Dose: 1,000 mg Documented by: Ondansetron HCl (Ondansetron 4 Mg/2 Ml Sdv) 4 mg IV Q6H PRN PRN Reason: Nausea/Vomiting Oxycodone HCl (Oxycodone 5 Mg Tab) 5 mg PO Q4H PRN PRN Reason: Pain (moderate 4-6) Last Admin: 02/01/21 11:14 Dose: 5 mg Documented by: Potassium Chloride (Potassium Chloride 10 Meq Tab.Er) 10 meq PO TID [facility] Last Admin: 02/04/21 08:09 Dose: 10 meq Documented by: Senna/Docusate Sodium (Docusate Sodium/Sennosides 50-8.6 Mg Tab) 1 tab PO Q12H PRN PRN Reason: Constipation Sodium Chloride (Sodium Chloride 0.9% 10 Ml Syringe) 10 ml FLUSH ASDIRECTED PRN PRN Reason: Keep Vein Open
[2021-02-04] MEDS: Cyanocobalamin (Vitamin B12) 1,000 MCG Tab PO SCH (11:36)
[2021-02-04 13:05] VITALS: BP 132/54; PULSE 81
== END 2021-02-04 11:45 | DRG 536 ==
LOC: JD.ED 14:47 → JD.MS 18:59
PROVIDERS: ADMIT Family Medicine; ATTEND Family Medicine
DX: S72.002A Fracture of unspecified part of neck of left femur, initial encounter for closed fracture (principal); D68.51 Activated protein C resistance; K50.019 Crohn's disease of small intestine with unspecified complications; E78.5 Hyperlipidemia, unspecified; I10 Essential (primary) hypertension; E11.9 Type 2 diabetes mellitus without complications; H91.90 Unspecified hearing loss, unspecified ear; H54.7 Unspecified visual loss; E78.00 Pure hypercholesterolemia, unspecified; K50.90 Crohn's disease, unspecified, without complications; Z20.822 Contact with and (suspected) exposure to COVID-19; M81.0 Age-related osteoporosis without current pathological fracture; M19.90 Unspecified osteoarthritis, unspecified site; F41.9 Anxiety disorder, unspecified; F32.A Depression, unspecified; Z86.2 Personal history of diseases of the blood and blood-forming organs and certain disorders involving the immune mechanism; Z86.718 Personal history of other venous thrombosis and embolism; Z79.01 Long term (current) use of anticoagulants; Z88.0 Allergy status to penicillin; Z79.82 Long term (current) use of aspirin; Z79.899 Other long term (current) drug therapy; Z90.49 Acquired absence of other specified parts of digestive tract; Z91.018 Allergy to other foods; Z79.4 Long term (current) use of insulin; K21.9 Gastro-esophageal reflux disease without esophagitis; Z90.710 Acquired absence of both cervix and uterus; W01.0XXA Fall on same level from slipping, tripping and stumbling without subsequent striking against object, initial encounter; Y92.238 Other place in hospital as the place of occurrence of the external cause; Y93.89 Activity, other specified
CPT/HCPCS: 0240U; 36415; 73502; 73700; 80048; 80053; 82947; 83036; 83735; 84443; 85025; 87493; 92523; 96372; 97110; 97116; 97163; 97530; 99285; A9270-GY; J1170; J1650; J1815; U0002

== ENCOUNTER 2021-07-25 10:57 | Emergency (ER) | payer MEDICARE, OTHER ==
[2021-07-25 11:28] VITALS: BP 126/44; PULSE 76
[2021-07-25] MEDS ORDERED: Sodium Chloride 0.9% 10 ML Syringe FLUSH PRN (11:49)
[2021-07-25] MEDS ORDERED: Sodium Chloride 0.9% 1,000 ML IV ONE (11:49)
[2021-07-25] MEDS ORDERED: Sodium Chloride 0.9% 1,000 ML IV SCH (13:30)
[2021-07-25] MEDS: Potassium Chloride 10 MEQ in Premix Bag 1 BAG IV SCH ×3 (13:35→15:27)
== END 2021-07-25 15:40 ==
LOC: JD.ED 10:57
DX: E87.6 Hypokalemia (principal); E87.1 Hypo-osmolality and hyponatremia; N17.9 Acute kidney failure, unspecified; E78.00 Pure hypercholesterolemia, unspecified; I10 Essential (primary) hypertension; E11.9 Type 2 diabetes mellitus without complications; Z90.49 Acquired absence of other specified parts of digestive tract; Z79.899 Other long term (current) drug therapy; Z79.82 Long term (current) use of aspirin; Z79.84 Long term (current) use of oral hypoglycemic drugs; Z88.0 Allergy status to penicillin; Z91.018 Allergy to other foods; Z20.822 Contact with and (suspected) exposure to COVID-19
CPT/HCPCS: 36415; 80053; 81001; 83690; 83735; 85025; 86140; 93005; 96361; 96365; 96366; 99285; J3480; J3490; J7030; U0002

== ENCOUNTER 2021-08-11 11:03 | Inpatient (IN) | payer MEDICARE, OTHER ==
[2021-08-11] MEDS ORDERED: Sodium Chloride 0.9% 10 ML Syringe FLUSH PRN (12:27)
[2021-08-11 14:12] LABS: ESTIMATED GFR 51 mL/min (>60)
[2021-08-11] MEDS ORDERED: Potassium Chloride 10 MEQ Tab.ER PO SCH (15:00)
[2021-08-11] MEDS ORDERED: Magnesium Sulfate/Water 2 GM in Premix Bag 1 BAG IV ONE (15:05)
[2021-08-11] MEDS ORDERED: Ondansetron 4 MG/2 ML SDV IV PRN (15:12)
[2021-08-11] MEDS ORDERED: Acetaminophen 325 MG Tab PO PRN (15:12)
[2021-08-11] MEDS ORDERED: Pantoprazole 80 MG in Sodium Chloride 0.9% 100 ML IV SCH (15:15)
[2021-08-11] MEDS ORDERED: Furosemide 20 MG/2 ML VIAL IVPUSH ONE (17:00)
[2021-08-11] MEDS: Pantoprazole 80 MG in Sodium Chloride 0.9% 100 ML IV SCH (17:05)
[2021-08-11] MEDS ORDERED: Sodium Chloride 0.9% 250 ML IV SCH (18:15)
[2021-08-11] MEDS: Insulin Lispro 100 Unit/ML 3 ML KwikPen SUBCUT SCH ×2 (18:16→21:05)
[2021-08-11] MEDS: cloNIDine 0.1 MG Tab PO SCH (20:51)
[2021-08-11] MEDS ORDERED: metFORMIN 500 MG Tab PO SCH (21:00)
[2021-08-12] MEDS: Pantoprazole 80 MG in Sodium Chloride 0.9% 100 ML IV SCH ×3 (03:18→15:48)
[2021-08-12] MEDS: Insulin Lispro 100 Unit/ML 3 ML KwikPen SUBCUT SCH ×4 (07:30→21:28)
[2021-08-12] MEDS ORDERED: Magnesium Sulfate/Water 2 GM in Premix Bag 1 BAG IV ONE (07:48)
[2021-08-12] MEDS: Folic Acid 1 MG Tab PO SCH (08:04)
[2021-08-12] MEDS: Cetirizine 10 MG Tab PO SCH (08:04)
[2021-08-12] MEDS: Furosemide 40 MG Tab PO SCH (08:04)
[2021-08-12] MEDS: Cyanocobalamin (Vitamin B12) 1,000 MCG Tab PO SCH (11:56)
[2021-08-12] MEDS: cloNIDine 0.1 MG Tab PO SCH (21:27)
[2021-08-13] MEDS: Pantoprazole 80 MG in Sodium Chloride 0.9% 100 ML IV SCH ×2 (01:32→09:58)
[2021-08-13] MEDS: Insulin Lispro 100 Unit/ML 3 ML KwikPen SUBCUT SCH ×2 (07:01→12:31)
[2021-08-13] MEDS: Folic Acid 1 MG Tab PO SCH (08:24)
[2021-08-13] MEDS: Cetirizine 10 MG Tab PO SCH (08:24)
[2021-08-13] MEDS: Furosemide 40 MG Tab PO SCH (08:25)
[2021-08-13] MEDS ORDERED: Calcium Carbonate/Vitamin D3 600 MG-200 Units Tab PO SCH (09:00)
[2021-08-13] MEDS ORDERED: Pantoprazole 40 MG Tab.CR PO SCH (09:00)
[2021-08-13] MEDS ORDERED: Magnesium Oxide 400 MG Tab PO SCH (09:00)
[2021-08-13] MEDS: Cyanocobalamin (Vitamin B12) 1,000 MCG Tab PO SCH (12:29)
[2021-08-13 12:56] VITALS: BP 103/74; PULSE 74
== END 2021-08-13 13:35 | DRG 378 ==
LOC: JD.ED 11:03 → JD.MS 15:02
PROVIDERS: ADMIT Internal Medicine; ATTEND Internal Medicine
PROC: 30233N1 Transfusion of Nonautologous Red Blood Cells into Peripheral Vein, Percutaneous Approach (ICD-10-PCS; principal; 2021-08-11)
DX: D64.9 Anemia, unspecified (principal); K92.2 Gastrointestinal hemorrhage, unspecified; D62 Acute posthemorrhagic anemia; N39.0 Urinary tract infection, site not specified; K50.90 Crohn's disease, unspecified, without complications; K50.019 Crohn's disease of small intestine with unspecified complications; I10 Essential (primary) hypertension; Z66 Do not resuscitate; E78.5 Hyperlipidemia, unspecified; K21.9 Gastro-esophageal reflux disease without esophagitis; M19.90 Unspecified osteoarthritis, unspecified site; E61.1 Iron deficiency; M81.0 Age-related osteoporosis without current pathological fracture; F41.9 Anxiety disorder, unspecified; F32.A Depression, unspecified; E11.9 Type 2 diabetes mellitus without complications; E53.8 Deficiency of other specified B group vitamins; H91.90 Unspecified hearing loss, unspecified ear; H54.7 Unspecified visual loss; E78.00 Pure hypercholesterolemia, unspecified; G89.29 Other chronic pain; R51.9 Headache, unspecified; F32.89 Other specified depressive episodes; E83.42 Hypomagnesemia; Z86.718 Personal history of other venous thrombosis and embolism; Z87.440 Personal history of urinary (tract) infections; Z87.19 Personal history of other diseases of the digestive system; Z79.899 Other long term (current) drug therapy; Z20.822 Contact with and (suspected) exposure to COVID-19; Z88.0 Allergy status to penicillin; Z88.8 Allergy status to other drugs, medicaments and biological substances; Z79.82 Long term (current) use of aspirin; Z79.4 Long term (current) use of insulin; Z79.01 Long term (current) use of anticoagulants; Z90.49 Acquired absence of other specified parts of digestive tract
CPT/HCPCS: 36415; 36430; 80053; 81003; 82947; 83735; 85014; 85018; 85025; 86850; 86900; 86901; 86922; 87641; 93005; 93010; 97110-GP; 97116-GP; 97162-GP; 99284; 99285-25; A9270-GY; C9113; J1815; J1940; J3475; J3490; P9016; U0002

== ENCOUNTER 2021-09-09 11:27 | Emergency (ER) | payer MEDICARE, OTHER ==
[2021-09-09 12:41] VITALS: BP 132/60; PULSE 89
[2021-09-09] MEDS ORDERED: Sodium Chloride 0.9% 10 ML Syringe FLUSH PRN (12:59)
[2021-09-09] MEDS ORDERED: Sodium Chloride 0.9% 1,000 ML IV SCH (13:00)
== END 2021-09-09 15:45 | disposition home or self-care (01) ==
LOC: JD.ED 11:27
DX: R10.84 Generalized abdominal pain (principal); E78.00 Pure hypercholesterolemia, unspecified; I10 Essential (primary) hypertension; E11.9 Type 2 diabetes mellitus without complications; Z88.8 Allergy status to other drugs, medicaments and biological substances; Z79.899 Other long term (current) drug therapy; Z79.4 Long term (current) use of insulin; Z87.891 Personal history of nicotine dependence
CPT/HCPCS: 36415; 80053; 85025; 86140; 96360; 96361; 99284; J3490; J7030

== ENCOUNTER 2021-12-03 17:00 | Emergency (ER) | payer MEDICARE, OTHER ==
[~2021-12-03 17:00] MED LIST: HYDROmorphone 0.5 MG/0.5 ML Syringe IVPUSH ONE
[2021-12-03 17:54] LABS: ESTIMATED GFR 75 mL/min (>60)
[2021-12-03] MEDS ORDERED: Sodium Chloride 0.9% 1,000 ML IV ONE (18:03)
[2021-12-03] MEDS ORDERED: HYDROmorphone 0.5 MG/0.5 ML Syringe ONE (18:04)
[2021-12-03] MEDS ORDERED: Lidocaine 1% 10 ML MDV ONE (18:15)
[2021-12-03] MEDS ORDERED: Diphtheria,Pertussis(Acell),Tetanus Vaccine 0.5 ML Syringe ONE (18:16)
[2021-12-03] MEDS ORDERED: fentaNYL 100 MCG/2 ML SDV IV ONE (22:38)
[2021-12-03] MEDS ORDERED: fentaNYL 100 MCG/2 ML SDV ONE (22:40)
[2021-12-09 20:37] VITALS: BP 183/73; PULSE 95
== END 2021-12-03 19:00 ==
LOC: JD.ED 17:00
DX: S01.81XA Laceration without foreign body of other part of head, initial encounter (principal); M25.551 Pain in right hip; Z88.0 Allergy status to penicillin; Z91.018 Allergy to other foods; W18.39XA Other fall on same level, initial encounter
CPT/HCPCS: 12011; 36415; 51702; 70450; 71045; 72170; 73552; 80053; 82553; 83735; 83880; 84443; 85025; 85610; 85730; 90715; 93005; 96361; 96374; 96376; 99285; J1170; J3010; J7030; U0002

== ENCOUNTER 2022-03-19 17:19 | Inpatient (IN) | payer MEDICARE, OTHER ==
[2022-03-19] MEDS ORDERED: Sodium Chloride 0.9% 1,000 ML IV ONE (19:53)
[2022-03-19] MEDS ORDERED: Sodium Chloride 0.9% 10 ML Syringe FLUSH ONE (22:51)
[2022-03-19] MEDS ORDERED: Iopamidol 755 Mg/ML 100 ML Bottle IVPUSH ONE (22:51)
[2022-03-19] MEDS ORDERED: Sodium Chloride 0.9% 100 ML IV SCH (23:00)
[2022-03-20] MEDS ORDERED: Meropenem 1 GM in Sodium Chloride 0.9% 100 ML IV ONE (00:59)
[2022-03-20] MEDS ORDERED: traMADol 50 MG Tab PO ONE (03:55)
[2022-03-20] MEDS ORDERED: Lactated Ringers 1,000 ML IV SCH (04:15)
[2022-03-20] MEDS: Acetaminophen 325 MG Tab PO PRN ×2 (04:16→17:33)
[2022-03-20] MEDS ORDERED: Magnesium Sulfate/Water 2 GM in Premix Bag 1 BAG IV ONE (05:39)
[2022-03-20] MEDS ORDERED: Meropenem 1 GM in Sodium Chloride 0.9% 100 ML IV SCH (09:00)
[2022-03-20] MEDS: Sertraline 50 MG Tab PO SCH (09:18)
[2022-03-20] MEDS: Donepezil 10 MG Tab PO SCH (09:18)
[2022-03-20] MEDS: traMADol 50 MG Tab PO SCH ×2 (09:18→20:50)
[2022-03-20] MEDS: Meropenem 500 MG in Sodium Chloride 0.9% 100 ML IV SCH ×2 (09:49→17:33)
[2022-03-20] MEDS ORDERED: VANCOmycin 1.25 GM/250 ML 1.25 GM in Premix Bag 1 BAG IV SCH (21:00)
[2022-03-21] MEDS: Meropenem 500 MG in Sodium Chloride 0.9% 100 ML IV SCH ×3 (00:30→17:10)
[2022-03-21] MEDS: Acetaminophen 325 MG Tab PO PRN ×4 (07:00→21:58)
[2022-03-21] MEDS: Sertraline 50 MG Tab PO SCH (08:42)
[2022-03-21] MEDS: Potassium Chloride 10 MEQ Tab.ER PO SCH ×3 (08:42→20:08)
[2022-03-21] MEDS: traMADol 50 MG Tab PO SCH ×2 (08:42→20:08)
[2022-03-21] MEDS: Donepezil 10 MG Tab PO SCH (08:43)
[2022-03-21] MEDS ORDERED: Furosemide 40 MG Tab PO SCH (09:00)
[2022-03-21] MEDS: VANCOmycin 750 MG/150 ML 750 MG in Premix Bag 1 BAG IV SCH ×2 (10:08→23:10)
[2022-03-21] MEDS: Sodium Hypochlorite 0.25% Soln 473 ML TOP SCH ×2 (10:16→22:00)
[2022-03-22] MEDS: Meropenem 500 MG in Sodium Chloride 0.9% 100 ML IV SCH ×2 (01:07→10:38)
[2022-03-22] MEDS: Acetaminophen 325 MG Tab PO PRN (05:02)
[2022-03-22 07:01] VITALS: BP 132/62; PULSE 89
[2022-03-22] MEDS ORDERED: Enoxaparin 40 MG/0.4 ML Syringe SUBCUT SCH (09:00)
[2022-03-22] MEDS: Sertraline 50 MG Tab PO SCH (10:35)
[2022-03-22] MEDS: Potassium Chloride 10 MEQ Tab.ER PO SCH (10:35)
[2022-03-22] MEDS: Donepezil 10 MG Tab PO SCH (10:35)
[2022-03-22] MEDS: traMADol 50 MG Tab PO SCH (10:36)
[2022-03-22] MEDS: VANCOmycin 750 MG/150 ML 750 MG in Premix Bag 1 BAG IV SCH (11:07)
== END 2022-03-22 14:01 | DRG 871 ==
LOC: JD.ED 17:19 → JD.MS 03-20 02:39
PROVIDERS: ADMIT Internal Medicine; ATTEND Internal Medicine
DX: A41.9 Sepsis, unspecified organism (principal); L89.154 Pressure ulcer of sacral region, stage 4; K50.80 Crohn's disease of both small and large intestine without complications; M86.68 Other chronic osteomyelitis, other site; E11.69 Type 2 diabetes mellitus with other specified complication; D63.1 Anemia in chronic kidney disease; N18.31 Chronic kidney disease, stage 3a; M19.90 Unspecified osteoarthritis, unspecified site; E11.22 Type 2 diabetes mellitus with diabetic chronic kidney disease; M81.0 Age-related osteoporosis without current pathological fracture; H91.90 Unspecified hearing loss, unspecified ear; H54.7 Unspecified visual loss; E78.00 Pure hypercholesterolemia, unspecified; K21.9 Gastro-esophageal reflux disease without esophagitis; E11.622 Type 2 diabetes mellitus with other skin ulcer; G30.9 Alzheimer's disease, unspecified; F02.80 Dementia in other diseases classified elsewhere, unspecified severity, without behavioral disturbance, psychotic disturbance, mood disturbance, and anxiety; F41.9 Anxiety disorder, unspecified; F32.A Depression, unspecified; E53.9 Vitamin B deficiency, unspecified; Z20.822 Contact with and (suspected) exposure to COVID-19; D50.9 Iron deficiency anemia, unspecified; Z79.899 Other long term (current) drug therapy; Z79.84 Long term (current) use of oral hypoglycemic drugs; Z88.0 Allergy status to penicillin; Z88.8 Allergy status to other drugs, medicaments and biological substances; Z91.018 Allergy to other foods; Z97.4 Presence of external hearing-aid; Z87.442 Personal history of urinary calculi; Z87.440 Personal history of urinary (tract) infections; Z99.2 Dependence on renal dialysis; Z90.49 Acquired absence of other specified parts of digestive tract; Z86.19 Personal history of other infectious and parasitic diseases; Z87.891 Personal history of nicotine dependence
CPT/HCPCS: 36415; 36600; 71045; 71045-26; 71275; 71275-26; 80048; 80053; 80202; 81001; 82803; 82947; 83605; 83735; 83880; 84484; 85007; 85027; 85379; 85610; 85652; 85730; 86140; 87040; 87502-QW; 87641; 93005; A9270-GY; J1650; J2185; J3370; J3475; J3490; J7030; J7050; J7120; Q9967

== ENCOUNTER 2022-05-20 07:50 | Day surgery (SDC) | payer MEDICARE, OTHER ==
[~2022-05-20 07:50] MED LIST changes: +Brimonidine 0.2% Ophth Soln 5 ML Bottle EYELF SCH; +Cefuroxime 10 MG/ML SYRINGE EYELF SCH; -HYDROmorphone 0.5 MG/0.5 ML Syringe IVPUSH ONE; +Lidocaine 1% PF 2 ML SDV INJECT SCH; +Phenylephrine 2.5% Ophth Soln 2 ML Bot EYELF SCH; +Pilocarpine 4% Ophth Soln 15 ML Bot EYELF SCH; +Polymyxin B/Trimethoprim 10 ML Bottle EYELF SCH; +Tetracaine HCl/PF 0.5% 4 ML Bottle EYEBOTH SCH; +Tropicamide 1% Ophth Soln 15 ML Bottle EYELF SCH
[2022-05-20] MEDS: Polymyxin B/Trimethoprim 10 ML Bottle EYELF SCH ×4 (07:56→10:01)
[2022-05-20] MEDS: Brimonidine 0.2% Ophth Soln 5 ML Bottle EYELF SCH ×4 (08:01→10:01)
[2022-05-20] MEDS: Phenylephrine 2.5% Ophth Soln 2 ML Bot EYELF SCH ×5 (08:06→09:43)
[2022-05-20] MEDS: Tropicamide 1% Ophth Soln 15 ML Bottle EYELF SCH ×4 (08:11→08:51)
[2022-05-20] MEDS: Lidocaine 1% PF 2 ML SDV INJECT SCH ×2 (08:16→09:50)
[2022-05-20] MEDS: Tetracaine HCl/PF 0.5% 4 ML Bottle EYEBOTH SCH ×5 (08:16→09:49)
[2022-05-20] MEDS: Pilocarpine 4% Ophth Soln 15 ML Bot EYELF SCH ×2 (08:18→10:01)
[2022-05-20] MEDS: Cefuroxime 10 MG/ML SYRINGE EYELF SCH ×2 (08:19→10:00)
[2022-05-20 10:51] VITALS: BP 90/46; PULSE 72
== END 2022-05-20 10:39 ==
LOC: JD.SDS 07:50
PROVIDERS: ATTEND Ophthalmology
DX: E11.36 Type 2 diabetes mellitus with diabetic cataract (principal); H25.813 Combined forms of age-related cataract, bilateral; H26.9 Unspecified cataract; F41.9 Anxiety disorder, unspecified; F32.A Depression, unspecified; M19.90 Unspecified osteoarthritis, unspecified site; I10 Essential (primary) hypertension; G30.9 Alzheimer's disease, unspecified; E78.00 Pure hypercholesterolemia, unspecified; K21.9 Gastro-esophageal reflux disease without esophagitis; M81.0 Age-related osteoporosis without current pathological fracture; D50.0 Iron deficiency anemia secondary to blood loss (chronic); E53.8 Deficiency of other specified B group vitamins; Z98.890 Other specified postprocedural states; Z79.899 Other long term (current) drug therapy; Z79.84 Long term (current) use of oral hypoglycemic drugs; Z88.0 Allergy status to penicillin; Z88.8 Allergy status to other drugs, medicaments and biological substances; Z88.1 Allergy status to other antibiotic agents
CPT/HCPCS: A9270-GY; C1780; J0697; J3490

== ENCOUNTER 2022-06-17 07:05 | Day surgery (SDC) | payer MEDICARE, OTHER ==
[2022-06-17] MEDS: Polymyxin B/Trimethoprim 10 ML Bottle EYERT SCH ×4 (07:20→09:02)
[2022-06-17] MEDS: Brimonidine 0.2% Ophth Soln 5 ML Bottle EYERT SCH ×4 (07:25→09:02)
[2022-06-17] MEDS: Phenylephrine 2.5% Ophth Soln 2 ML Bot EYERT SCH ×6 (07:30→08:41)
[2022-06-17] MEDS: Tropicamide 1% Ophth Soln 15 ML Bottle EYERT SCH ×4 (07:35→08:14)
[2022-06-17] MEDS: Lidocaine 1% PF 2 ML SDV INJECT SCH ×2 (07:48→08:46)
[2022-06-17] MEDS: Tetracaine HCl/PF 0.5% 4 ML Bottle EYEBOTH SCH ×5 (07:48→08:47)
[2022-06-17] MEDS: Cefuroxime 10 MG/ML SYRINGE EYERT SCH ×2 (07:49→09:02)
[2022-06-17] MEDS: Pilocarpine 4% Ophth Soln 15 ML Bot EYERT SCH ×2 (07:49→09:02)
[2022-06-17 09:24] VITALS: BP 109/52; PULSE 76
== END 2022-06-17 09:28 ==
LOC: JD.SDS 07:05
PROVIDERS: ATTEND Ophthalmology
DX: E11.36 Type 2 diabetes mellitus with diabetic cataract (principal); H25.811 Combined forms of age-related cataract, right eye; H16.223 Keratoconjunctivitis sicca, not specified as Sjogren's, bilateral; H16.103 Unspecified superficial keratitis, bilateral; H02.834 Dermatochalasis of left upper eyelid; H02.831 Dermatochalasis of right upper eyelid; H35.342 Macular cyst, hole, or pseudohole, left eye; D50.9 Iron deficiency anemia, unspecified; F32.A Depression, unspecified; F41.9 Anxiety disorder, unspecified; I10 Essential (primary) hypertension; E78.00 Pure hypercholesterolemia, unspecified; G30.9 Alzheimer's disease, unspecified; F02.80 Dementia in other diseases classified elsewhere, unspecified severity, without behavioral disturbance, psychotic disturbance, mood disturbance, and anxiety; M19.90 Unspecified osteoarthritis, unspecified site; K50.90 Crohn's disease, unspecified, without complications; Z98.890 Other specified postprocedural states; Z90.49 Acquired absence of other specified parts of digestive tract; Z79.899 Other long term (current) drug therapy; Z96.1 Presence of intraocular lens; Z79.84 Long term (current) use of oral hypoglycemic drugs
CPT/HCPCS: 66984; A9270; J0697; C1780; J3490

== ENCOUNTER 2022-08-17 09:27 | Emergency (ER) | payer MEDICARE, OTHER ==
[2022-08-17 09:56] VITALS: PULSE 81
[2022-08-17 11:22] LABS: BASOPHILS ABSOLUTE AUTO 0.03 K/mm3 (0.01-0.08); BASOPHILS PERCENT AUTO 0.4 % (0.1-1.2); EOSINOPHILS ABSOLUTE AUTO 0.54 K/mm3 (0.04-0.36); EOSINOPHILS PERCENT AUTO 6.4 (0.7-5.8); HEMATOCRIT 36.2 % (34.1-44.9); HEMOGLOBIN 10.9 gm/dl (11.2-15.7); IMMATURE GRAN ABSOLUTE AUTO 0.01 K/mm3 (0.00-0.10); IMMATURE GRAN PERCENT AUTO 0.1 % (<=1.0); LYMPHOCYTES ABSOLUTE AUTO 2.24 K/mm3 (1.18-3.74); LYMPHOCYTES PERCENT AUTO 26.4 % (19.3-51.7); MEAN CORPUSCULAR HEMOGLOBIN 26.6 pg (25.6-32.2); MEAN CORPUSCULAR HGB CONC 30.1 g/dl (32.2-35.5); MEAN CORPUSCULAR VOLUME 88.3 fl (79.4-94.8); MEAN PLATELET VOLUME 8.5 fl (9.4-12.3); MONOCYTES ABSOLUTE AUTO 1.28 K/mm3 (0.24-0.36); MONOCYTES PERCENT AUTO 15.1 % (4.7-12.5); NEUTROPHILS ABSOLUTE AUTO 4.39 K/mm3 (1.56-6.13); NEUTROPHILS PERCENT AUTO 51.6 % (34.0-71.1); PLATELET COUNT,PLT 473 K/mm3 (182-369); WHITE BLOOD CELL COUNT,WBC 8.49 K/mm3 (3.98-10.04)
[2022-08-17 11:38] LABS: A/G RATIO 0.5 (1-2); ALANINE AMINOTRANSFERASE,ALT 25 U/L (14-59); ALBUMIN 2.7 g/dl (3.4-5.0); ALKALINE PHOSPHATASE 116 U/L (46-116); ASPARTATE AMNIOTRANSFERASE,AST 25 U/L (15-37); BILIRUBIN TOTAL 0.2 mg/dL (0.2-1.0); BLOOD UREA NITROGEN,BUN 28 mg/dL (7-18); CALCIUM 9.1 mg/dL (8.5-10.1); CARBON DIOXIDE,CO2 29 mEq/L (21-32); CHLORIDE,CL 103 mEq/L (98-107); CREATININE 0.8 mg/dL (0.55-1.02); ESTIMATED GFR 75 mL/min (>60); GLUCOSE RANDOM 110 mg/dL (70-99); PROTEIN TOTAL,TP 7.7 g/dl (6.4-8.2); SODIUM,NA 139 mEq/L (136-145)
[2022-08-17 13:32] LABS: APPEARANCE,URINE CLEAR (Clear); BILIRUBIN,URINE NEGATIVE (Negative); COLOR,URINE YELLOW (Yellow); GLUCOSE,URINE NEGATIVE (Negative); KETONES,URINE NEGATIVE (Negative); LEUKOCYTE ESTERASE,URINE NEGATIVE (Negative); NITRITE,URINE NEGATIVE (Negative); OCCULT BLOOD,URINE NEGATIVE (Negative); PH,URINE 5.5 (5.0-8.0); PROTEIN,URINE NEGATIVE (Negative); UROBILINOGEN,URINE 0.2 (0.2-1.0)
[2022-08-17 17:30] VITALS: BP 99/57
== END 2022-08-17 13:20 ==
LOC: JD.ED 09:27
DX: L89.154 Pressure ulcer of sacral region, stage 4 (principal); M46.28 Osteomyelitis of vertebra, sacral and sacrococcygeal region; E11.9 Type 2 diabetes mellitus without complications; I10 Essential (primary) hypertension; K21.9 Gastro-esophageal reflux disease without esophagitis; Z88.0 Allergy status to penicillin; Z88.8 Allergy status to other drugs, medicaments and biological substances; Z91.048 Other nonmedicinal substance allergy status; Z79.899 Other long term (current) drug therapy
CPT/HCPCS: 36415; 80053; 81003; 85025; 99284; 99285